=== PATIENT | male | born 1930 | race Caucasian/White ===

== ENCOUNTER 2016-05-06 16:24 | Emergency (ER) | payer MEDICARE ==
[2016-05-06] MEDS ORDERED: NITROGLYCERIN OINT 1 INCH/GM PACKET TOPICAL STA (19:52)
[2016-05-06] MEDS ORDERED: ASPIRIN 81 MG CHEW PO STA (19:52)
[2016-05-06 20:04] LABS: Basophils % (A) 0 %; CH 29.7; CHCM 33.8; Eosinophils # (A) 0.2 k/uL (0-0.7); Eosinophils % (A) 3 %; HCT 45.3 % (39.0-53.0); HDW 2.42; HGB 15.1 gm/dL (13.0-17.5); Luc % (Auto) 2; Lymphocytes # (A) 1.2 k/uL (1.0-4.8); Lymphocytes % (A) 20 %; MCH 29.2 pg (25.0-35.0); MCHC 33.2 g/dL (31.0-37.0); MCV 87.9 fL (80.0-100.0); Mean Platelet Volume 7.1; Monocytes # (A) 0.3 k/uL (0-1.0); Monocytes % (A) 6 %; Neutrophils # (A) 4.2 k/uL (1.3-7.7); Neutrophils % (A) 70 %; RBC 5.16 m/uL (4.30-5.90); RDW 12.8 % (11.5-15.5); WBC (Perox) 6.12
[2016-05-06 20:12] LABS: ALT 29 U/L (21-72); AST 22 U/L (17-59); Alkaline Phosphatase 89 U/L (38-126); Anion Gap 9 mmol/L; Blood Urea Nitrogen 20 mg/dL (9-20); Calcium 8.9 mg/dL (8.4-10.2); Carbon Dioxide 27 mmol/L (22-30); Chloride 106 mmol/L (98-107); Glucose 91 mg/dL (74-99); Magnesium 2.1 mg/dL (1.6-2.3); Non-African American GFR(MDRD) >60 (>60 ml/min/1.73 sqM); Sodium 142 mmol/L (137-145); Total Bilirubin 0.6 mg/dL (0.2-1.3); Total Protein 6.6 g/dL (6.3-8.2)
[2016-05-06 20:17] LABS: Creatine Kinase 35 U/L (55-170)
[2016-05-06 20:20] LABS: Partial Thromboplastin Time 26.3 sec (22.0-30.0); Prothrombin Time 10.4 sec (9.0-12.0)
[2016-05-06 20:30] LABS: Creatine Kinase MB 0.6 ng/mL (0.0-2.4); Troponin I <0.012 ng/mL (0.000-0.034)
--- NOTE | 2016-05-06 20:37 | XR ---
EXAMINATION TYPE: XR chest 2V DATE OF EXAM: 05/06/2016 8:23 PM COMPARISON: NONE HISTORY: Chest pain TECHNIQUE: Frontal and lateral views of the chest are obtained. FINDINGS: There is minimal linear density at the left lung base. There is no heart failure. Heart si ze is normal. There are no hilar masses. There are chest leads. IMPRESSION: Mild pleural reaction or subsegmental atelectasis at the left lung base. Normal heart.
[2016-05-06 21:31] VITALS: RESP 20
--- NOTE | 2016-05-06 21:47 | ED ---
Chest Pain HPI - General Chief Complaint: Chest Pain Stated Complaint: Chest pain Time Seen by Provider: 05/06/16 19:35 Source: patient Mode of arrival: ambulatory Limitations: no limitations - History of Present Illness Initial Comments: This 86-year-old white male presents with a complaint of some chest pain. It is described as a left-sided mild dull ache. He states that it is been intermittent over the last month or so. Usually last 5-10 seconds. He denies any radiation of pain or shortness of breath. He states that it occurred today when he walked up a flight of stairs but it'll also occur at rest. He is unsure of his last stress test but it was remote. He denies any leg pain or swelling or history of DVT or PE. He denies any known previous cardiac history. No other complaints or modifying factors. - Related Data Home Medications Medication Instructions Recorded Confirmed Acetaminophen Tab [Tylenol Tab] 500 mg PO Q6HR PRN 05/06/16 05/06/16 Triamterene-Hctz 75-50Mg [Maxzide 0.5 tab PO DAILY 05/06/16 05/06/16 75-50] Allergies Allergy/AdvReac Type Severity Reaction Status Date / Time No Known Allergies Allergy Verified 05/06/16 18:43 Review of Systems ROS Statement: Those systems with pertinent positive or pertinent negative responses have been documented in the HPI. ROS Other: All systems not noted in ROS Statement are negative. Past Medical History Past Medical History: Cancer, Renal Disease History of Any Multi-Drug Resistant Organisms: None Reported Past Surgical History: Tonsillectomy Additional Past Surgical History / Comment(s): KIDNEY REMOVAL Past Psychological History: No Psychological Hx Reported Smoking Status: Never smoker Past Alcohol Use History: None Reported Past Drug Use History: None Reported General Exam - General Exam Comments Initial Comments: GENERAL: The patient is well nourished and well hydrated. VITAL SIGNS: Heart rate, blood pressure, respiratory rate reviewed as recorded in nurse's notes. EYES: Pupils are round and reactive. Extraocular movements are intact. No conjunctival / lid redness or swelling. ENT: No external evidence of injury, swelling, or ecchymosis. Airway is patent. Throat is clear. NECK: Nontender. No swelling or evidence of injury. No subcutaneous emphysema. Trachea is midline. No thyroid mass. HEART: Regular rate and rhythm. Good peripheral pulses. LUNGS/CHEST: Breath sounds clear and equal bilaterally. No rales, rhonchi, or wheezes. No ecchymosis, subcutaneous emphysema, or tenderness. ABDOMEN: Abdomen soft without tenderness. No palpable masses or organomegaly. No peritoneal signs. No abdominal wall swelling or ecchymosis. EXTREMITIES: No extremity tenderness. Normal muscle tone and function. No thoracolumbar tenderness. NEUROLOGIC: Sensation is grossly intact. Cranial nerve exam reveals face is symmetrical, tongue is midline, speech is clear. SKIN: No abrasions or ecchymosis is noted. No induration or masses noted. PSYCHIATRIC: Alert and oriented. Appropriate behavior and judgment. Limitations: no limitations Course Vital Signs 05/06/16 05/06/16 05/06/16 16:30 19:33 21:31 Temperature 97.9 F 97.1 F L 96.4 F L Pulse Rate 80 52 L 54 L Respiratory 18 20 20 Rate Blood Pressure 156/80 128/69 162/73 O2 Sat by Pulse 96 98 98 Oximetry Chest Pain [facility] The patient was seen and examined. All diagnostics are reviewed. The EKG shows a sinus bradycardia at a rate of 57. There is no acute ST-T wave changes noted. An early right bundle branch block might be present. The [place] interval is 206, QRS duration is 116, and the QTc interval is 426. The chest x-ray showed some possible atelectasis versus pleural inflammation. The laboratory is fairly unremarkable with a negative d-dimer. The patient is in no significant distress on recheck. His chest pain seems very atypical for any cardiac etiology. The case is discussed with Dr. Kennedy and he would like the patient to follow-up with him closely in the next 1-2 days. Patient is agreeable to this plan. Is felt as though she take an aspirin daily. He understands and leaves in no identifiable distress. Disposition Clinical Impression: Chest pain Disposition: HOME SELF-CARE Condition: Good Instructions: Chest Pain (ED) Referrals: Parvez Kennedy MD [Primary Care Provider] - 1-2 days Time of Disposition: 21:58
[2016-05-06 22:11] VITALS: BP 142/72; PULSE 56; TEMP 96.5
== END 2016-05-06 22:08 | disposition home or self-care (01) ==
LOC: EC 16:24
DX: R07.9 Chest pain, unspecified (principal); Z90.5 Acquired absence of kidney; J98.11 Atelectasis; Z79.899 Other long term (current) drug therapy; Z85.9 Personal history of malignant neoplasm, unspecified
CPT/HCPCS: 36415; 71020; 80053; 82550; 82553; 83735; 84484; 85025; 85379; 85610; 85730; 93005; 99285

== ENCOUNTER 2017-06-03 17:51 | Emergency (ER) | payer MEDICARE ==
[2017-06-03 17:57] VITALS: TEMP 98.4
[2017-06-03] MEDS ORDERED: NITROGLYCERIN OINT 1 INCH/GM PACKET TOPICAL STA (18:14)
[2017-06-03] MEDS ORDERED: ASPIRIN 81 MG PO STA (18:14)
--- NOTE | 2017-06-03 18:17 | ED ---
General Adult HPI - General Chief complaint: Chest Pain Stated complaint: Chest pain Time Seen by Provider: 06/03/17 18:00 Source: patient, RN notes reviewed Mode of arrival: wheelchair Limitations: no limitations - History of Present Illness Initial comments: This is an 87-year-old male who presents emergency Department complaining of chest pain. Patient states it started about an hour ago and it was discomfort in the left side of his chest that lasted about 15-20 minutes and it comes back occasionally but for a much shorter duration. Patient states the pain radiates up into his left shoulder a little bit. Patient denies any diaphoresis. Patient denies shortness of breath. Patient denies any nausea. Patient states he has had no history of heart problems no diabetes no high blood pressure no high cholesterol. Patient denies smoking. Patient does not take any medicines but an aspirin a day. Patient denies any headache patient denies numbness weakness. Patient denies lightheadedness dizziness or near-syncopal episode. Patient denies any peripheral edema or calf pain. - Related Data Home Medications Medication Instructions Recorded Confirmed Aspirin 325 mg PO DAILY 05/07/17 06/03/17 Allergies Allergy/AdvReac Type Severity Reaction Status Date / Time No Known Allergies Allergy Verified 06/03/17 19:11 Review of Systems ROS Statement: Those systems with pertinent positive or pertinent negative responses have been documented in the HPI. ROS Other: All systems not noted in ROS Statement are negative. 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 Patient is nontoxic and well- hydrated and is in mild distress. ENT: Neck is soft and supple. No significant lymphadenopathy is noted. Oropharynx is clear. Moist mucous membranes. Neck has full range of motion without eliciting any pain. EYES: The sclera were anicteric and conjunctiva were pink and moist. Extraocular movements were intact and pupils were equal round and reactive to light. Eyelids were unremarkable. PULMONARY: Unlabored respirations. Good breath sounds bilaterally. No audible rales rhonchi or wheezing was noted. CARDIOVASCULAR: There is a regular rate and rhythm without any murmurs gallops or rubs. ABDOMEN: Soft and nontender with normal bowel sounds. No palpable organomegaly was noted. There is no palpable pulsatile mass. SKIN: Skin is clear with no lesions or rashes and otherwise unremarkable. NEUROLOGIC: Patient is alert and oriented x3. Cranial nerves II through XII are grossly intact. Motor and sensory are also intact. Normal speech, volume and content. Symmetrical smile. MUSCULOSKELETAL: Normal extremities with adequate strength and full range of motion. No lower extremity swelling or edema. No calf tenderness. LYMPHATICS: No significant lymphadenopathy is noted PSYCHIATRIC: Normal psychiatric evaluation. Normal interpersonal interactions appears functionally intact in deals appropriately with others. No signs of depression. No signs of anxiety. Limitations: no limitations Course Vital Signs 06/03/17 06/03/17 06/03/17 17:54 18:18 18:41 Temperature 98.4 F Pulse Rate 64 52 L Respiratory 16 18 18 Rate Blood Pressure 142/68 157/71 O2 Sat by Pulse 97 97 Oximetry 06/03/17 19:17 Temperature Pulse Rate 49 L Respiratory 18 Rate Blood Pressure 141/70 O2 Sat by Pulse 97 Oximetry Medical Decision Making - Medical Decision Making EKG shows sinus bradycardia 54 bpm PA interval 208 QRSs 102 QT interval is 444 QTC is 421 per patient's EKG shows no ST segment elevation or T wave abnormalities. Patient's chest x-ray showed no acute abnormality. One pack and spoke with the patient he was not having any chest pain while he was in the emergency department. I spoke with Dr. Brent Kennedy on the patient to follow-up with him on in the office. I went back in and let the patient notices he was fine with being discharged as was the family. - Lab Data Result diagrams: 06/03/17 18:36 06/03/17 18:36 Lab Results 06/03/17 06/03/17 06/03/17 Range/Units 18:36 18:36 18:36 WBC 5.8 (3.8-10.6) k/uL RBC 4.59 (4.30-5.90) m/uL Hgb 13.0 (13.0-17.5) gm/dL Hct 41.0 (39.0-53.0) % MCV 89.2 (80.0-100.0) fL MCH 28.4 (25.0-35.0) pg MCHC 31.8 (31.0-37.0) g/dL RDW 13.4 (11.5-15.5) % Plt Count 124 L (150-450) k/uL Neutrophils % 63 % Lymphocytes % 21 % Monocytes % 6 % Eosinophils % 8 % Basophils % 1 % Neutrophils # 3.7 (1.3-7.7) k/uL Lymphocytes # 1.3 (1.0-4.8) k/uL Monocytes # 0.3 (0-1.0) k/uL Eosinophils # 0.4 (0-0.7) k/uL Basophils # 0.1 (0-0.2) k/uL PT (9.0-12.0) sec INR (<1.2) APTT (22.0-30.0) sec Sodium 142 (137-145) mmol/L Potassium 3.9 (3.5-5.1) mmol/L Chloride 106 (98-107) mmol/L Carbon Dioxide 28 (22-30) mmol/L Anion Gap 8 mmol/L BUN 17 (9-20) mg/dL Creatinine 1.17 (0.66-1.25) mg/dL Est GFR (MDRD) Af Amer >60 (>60 ml/min/1.73 sqM) Est GFR (MDRD) Non-Af 59 (>60 ml/min/1.73 sqM) Glucose 98 (74-99) mg/dL Calcium 9.0 (8.4-10.2) mg/dL Magnesium 1.9 (1.6-2.3) mg/dL Total Bilirubin 0.6 (0.2-1.3) mg/dL AST 24 (17-59) U/L ALT 19 L (21-72) U/L Alkaline Phosphatase 87 (38-126) U/L Total Creatine Kinase <20 L (55-170) U/L CK-MB (CK-2) 0.3 (0.0-2.4) ng/mL CK-MB (CK-2) Rel Index Troponin I <0.012 (0.000-0.034) ng/mL Total Protein 5.9 L (6.3-8.2) g/dL Albumin 3.2 L (3.5-5.0) g/dL 06/03/17 Range/Units 18:36 WBC (3.8-10.6) k/uL RBC (4.30-5.90) m/uL Hgb (13.0-17.5) gm/dL Hct (39.0-53.0) % MCV (80.0-100.0) fL MCH (25.0-35.0) pg MCHC (31.0-37.0) g/dL RDW (11.5-15.5) % Plt Count (150-450) k/uL Neutrophils % % Lymphocytes % % Monocytes % % Eosinophils % % Basophils % % Neutrophils # (1.3-7.7) k/uL Lymphocytes # (1.0-4.8) k/uL Monocytes # (0-1.0) k/uL Eosinophils # (0-0.7) k/uL Basophils # (0-0.2) k/uL PT 10.4 (9.0-12.0) sec INR 1.1 (<1.2) APTT 24.4 (22.0-30.0) sec Sodium (137-145) mmol/L Potassium (3.5-5.1) mmol/L Chloride (98-107) mmol/L Carbon Dioxide (22-30) mmol/L Anion Gap mmol/L BUN (9-20) mg/dL Creatinine (0.66-1.25) mg/dL Est GFR (MDRD) Af Amer (>60 ml/min/1.73 sqM) Est GFR (MDRD) Non-Af (>60 ml/min/1.73 sqM) Glucose (74-99) mg/dL Calcium (8.4-10.2) mg/dL Magnesium (1.6-2.3) mg/dL Total Bilirubin (0.2-1.3) mg/dL AST (17-59) U/L ALT (21-72) U/L Alkaline Phosphatase (38-126) U/L Total Creatine Kinase (55-170) U/L CK-MB (CK-2) (0.0-2.4) ng/mL CK-MB (CK-2) Rel Index Troponin I (0.000-0.034) ng/mL Total Protein (6.3-8.2) g/dL Albumin (3.5-5.0) g/dL Disposition Clinical Impression: Atypical chest pain Disposition: HOME SELF-CARE Condition: Good Instructions: Chest Pain (ED) Referrals: Parvez Kennedy MD [Primary Care Provider] - 1-2 days Time of Disposition: 20:00
[2017-06-03 18:56] LABS: Basophils # (A) 0.1 k/uL (0-0.2); Basophils % (A) 1 %; Eosinophils # (A) 0.4 k/uL (0-0.7); Eosinophils % (A) 8 %; Lymphocytes # (A) 1.3 k/uL (1.0-4.8); Lymphocytes % (A) 21 %; MCH 28.4 pg (25.0-35.0); MCHC 31.8 g/dL (31.0-37.0); MCV 89.2 fL (80.0-100.0); Mean Platelet Volume 7.4; Monocytes # (A) 0.3 k/uL (0-1.0); Monocytes % (A) 6 %; Neutrophils # (A) 3.7 k/uL (1.3-7.7); Neutrophils % (A) 63 %; Platelet Count 124 k/uL (150-450); RBC 4.59 m/uL (4.30-5.90); RDW 13.4 % (11.5-15.5); WBC 5.8 k/uL (3.8-10.6)
[2017-06-03 19:00] LABS: ALT 19 U/L (21-72); AST 24 U/L (17-59); Albumin 3.2 g/dL (3.5-5.0); Alkaline Phosphatase 87 U/L (38-126); Anion Gap 8 mmol/L; Blood Urea Nitrogen 17 mg/dL (9-20); Carbon Dioxide 28 mmol/L (22-30); Chloride 106 mmol/L (98-107); Glucose 98 mg/dL (74-99); INR 1.1 (<1.2); Magnesium 1.9 mg/dL (1.6-2.3); Partial Thromboplastin Time 24.4 sec (22.0-30.0); Potassium 3.9 mmol/L (3.5-5.1); Prothrombin Time 10.4 sec (9.0-12.0); Sodium 142 mmol/L (137-145); Total Bilirubin 0.6 mg/dL (0.2-1.3); Total Protein 5.9 g/dL (6.3-8.2)
[2017-06-03 19:04] LABS: Creatine Kinase <20 U/L (55-170)
--- NOTE | 2017-06-03 19:12 | XR ---
EXAMINATION TYPE: XR chest 2V DATE OF EXAM: 06/03/2017 COMPARISON: Prior chest x-ray 05/07/2017 HISTORY: Chest pain TECHNIQUE: Frontal and lateral views of the chest are obtained. FINDINGS: There is no focal air space opacity, pleural effusion, or pneumothorax seen. The cardiac silhouette size is within normal limits. There are overlying cardiac leads. Prominent lung volumes cervantes ggest COPD. Surgical clips present within the abdomen. The osseous structures are intact. IMPRESSION: No acute cardiopulmonary process.
[2017-06-03 19:17] LABS: Creatine Kinase MB 0.3 ng/mL (0.0-2.4); Troponin I <0.012 ng/mL (0.000-0.034)
[2017-06-03 20:28] VITALS: BP 149/80; PULSE 97; RESP 20
== END 2017-06-03 20:31 | disposition home or self-care (01) ==
LOC: EC 17:51
DX: R07.89 Other chest pain (principal); R00.1 Bradycardia, unspecified; M25.512 Pain in left shoulder; Z79.82 Long term (current) use of aspirin; Z85.528 Personal history of other malignant neoplasm of kidney; Z90.5 Acquired absence of kidney
CPT/HCPCS: 36415; 71046; 80053; 82550; 82553; 83735; 84484; 85025; 85610; 85730; 93005; 99285

== ENCOUNTER 2017-06-05 18:41 | Inpatient (IN) | payer MEDICARE ==
[2017-06-05] MEDS ORDERED: SODIUM CHLORIDE 0.9% 1,000 ML IV ONE ×2 (19:00)
[2017-06-05] MEDS ORDERED: ACETAMINOPHEN IV (For NPO) 1,000 MG in EMPTY BAG 1 BAG IVPB ONE (19:01)
[2017-06-05] MEDS ORDERED: KETOROLAC 30 MG/ML 1 ML VIAL IVP STA (19:01)
[2017-06-05] MEDS ORDERED: cefTRIAXone IN SWFI 1,000 MG/10 ML SYRINGE IVP STA (19:02)
[2017-06-05 19:32] LABS: HCT 42.5 % (39.0-53.0); HGB 14.1 gm/dL (13.0-17.5); MCH 28.6 pg (25.0-35.0); MCHC 33.1 g/dL (31.0-37.0); MCV 86.5 fL (80.0-100.0); Mean Platelet Volume 9.4; Platelet Count 89 k/uL (150-450); Poikilocytosis Slight; RBC 4.91 m/uL (4.30-5.90); RDW 13.8 % (11.5-15.5); WBC 7.4 k/uL (3.8-10.6)
[2017-06-05 19:48] LABS: Band Neutrophils % 2 %; Lymphocytes # (M) 0.07 k/uL (1.0-4.8); Monocytes # (M) 0.07 k/uL (0-1.0); Neutrophils % (M) 96 %; Nucleated Red Blood Cells 0 /100 WBC (0-0); Polychromasia Present; Total Cells Counted 100
[2017-06-05 19:49] LABS: INR 1.2 (<1.2); Prothrombin Time 11.3 sec (9.0-12.0)
[2017-06-05 19:50] LABS: Glucose,Whole Blood 95 mg/dL (75-99)
[2017-06-05 19:51] LABS: Albumin 2.9 g/dL (3.5-5.0); Calcium 8.8 mg/dL (8.4-10.2); Potassium 3.4 mmol/L (3.5-5.1); Total Bilirubin 1.3 mg/dL (0.2-1.3); Total Protein 5.5 g/dL (6.3-8.2)
--- NOTE | 2017-06-05 19:54 | XR ---
EXAMINATION: XR chest 2V DATE AND TIME: 06/05/2017 7:22 PM ORDERING PROVIDER: Andi Vail DO CLINICAL INDICATION: altered mental status TECHNIQUE: PA and lateral COMPARISON: 06/03/2017 DESCRIPTION: The lungs are clear. The pleural spaces are negative. The cardiac silhouette is not enlarged. The skeletal structures are intact without focal findings. The soft tissues are unremarkable. IMPRESSION: NO ACUTE PROCESS.
[2017-06-05 20:06] LABS: Creatine Kinase <20 U/L (55-170)
[2017-06-05 20:18] LABS: Creatine Kinase MB <0.2 ng/mL (0.0-2.4)
--- NOTE | 2017-06-05 20:22 | CT ---
EXAMINATION: CT brain wo con DATE AND TIME: 06/05/2017 7:58 PM ORDERING PROVIDER: Andi Vail DO CLINICAL INDICATION: altered mental status TECHNIQUE: Standard departmental protocol. COMPARISON: None. DESCRIPTION: The calvarium is intact. There is no intracranial hemorrhage. There is no mass or mass e ffect. There is no definite new attenuation defect. Remainder of the intra-axial and extra-axial comp artment examination is unremarkable. The paranasal sinuses, middle ear cavities, and mastoid sinus ai r cells are clear. The orbits are intact. IMPRESSION: NO ACUTE PROCESS.
[2017-06-05] MEDS ORDERED: SODIUM CHLORIDE 0.9% 1,000 ML IV STA (20:39)
--- NOTE | 2017-06-05 22:18 | ED ---
Altered Mental Status HPI - General Chief Complaint: Altered Mental Status Stated Complaint: Altered Mental State Time Seen by Provider: 06/05/17 18:54 Source: EMS Mode of arrival: EMS Limitations: altered mental status - History of Present Illness Initial Comments: This 87-year-old white male presents with mental status changes. This apparently just came on this afternoon. His son states that he was at a doctor' s appointment with Dr. Kennedy and seemed to be doing fine at that time. He gradually became very weak and stopped talking. He does present with a fever as well. He apparently had a similar incident approximately one month ago and was hospitalized at that time with urinary tract infection, fever, and kidney injury. He currently is not able to communicate to relay any complaints. He also was seen in the ER 2 days ago with some chest pain. Son denies any other known complaints or modifying factors. - Related Data Home Medications Medication Instructions Recorded Confirmed Aspirin EC [Ecotrin Low Dose] 81 mg PO DAILY 06/05/17 06/05/17 Allergies Allergy/AdvReac Type Severity Reaction Status Date / Time No Known Allergies Allergy Verified 06/05/17 19:03 Review of Systems ROS Statement: Those systems with pertinent positive or pertinent negative responses have been documented in the HPI. ROS Other: All systems not noted in ROS Statement are negative. 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 VITAL SIGNS: Heart rate, blood pressure, respiratory rate reviewed as recorded in nurse's notes. EYES: Pupils are round and reactive. Extraocular movements are intact. No conjunctival / lid redness or swelling. ENT: No external evidence of injury, swelling, or ecchymosis. Airway is patent. Throat is clear. Mucous membranes are dry. NECK: Nontender. No swelling or evidence of injury. No subcutaneous emphysema. Trachea is midline. No thyroid mass. HEART: Regular rate and rhythm. Good peripheral pulses. LUNGS/CHEST: Breath sounds clear and equal bilaterally. No rales, rhonchi, or wheezes. No ecchymosis, subcutaneous emphysema, or tenderness. ABDOMEN: Abdomen soft without tenderness. No palpable masses or organomegaly. No peritoneal signs. No abdominal wall swelling or ecchymosis. EXTREMITIES: No extremity tenderness. Normal muscle tone and function. No thoracolumbar tenderness. NEUROLOGIC: Patient is nonverbal was initially. He will follow occasional commands. Later on in course, he is able to talk and appears much improved. SKIN: No abrasions or ecchymosis is noted. No induration or masses noted. PSYCHIATRIC: Alert but not oriented or talking initially. Limitations: altered mental status Course Vital Signs 06/05/17 06/05/17 06/05/17 18:48 19:20 19:50 Temperature 103.2 F H 102.8 F H Pulse Rate 122 H 120 H 116 H Respiratory 16 18 18 Rate Blood Pressure 155/78 149/73 119/63 O2 Sat by Pulse 96 97 Oximetry 06/05/17 06/05/17 20:21 21:40 Temperature 101.7 F H 98 F Pulse Rate 111 H 107 H Respiratory 18 16 Rate Blood Pressure 115/56 123/61 O2 Sat by Pulse 96 97 Oximetry Medical Decision Making - Medical Decision Making The patient was seen and examined. All diagnostics were reviewed. A EKG was done which shows a sinus tachycardia at a rate of 124 with occasional PVC. There is a right bundle-branch block with associated ST-T wave changes noted. The OR intervals 168, QRS duration is 114, and the QTc interval is 525. The patient had a chest x-ray which did not show any acute processes. The laboratory showed evidence of acute kidney injury which is significantly change from previous. The nurse did try to straight cath the patient for urine but was unable to obtain any urine at this time. He received significant fluid hydration. He received Rocephin intravenously. He is appearing much improved on recheck. The case will be discussed with internal medicine in the near future and he'll be admitted. He also receives some Tylenol and Toradol for his fever. It is felt as though he likely does have urinary tract infection but we are unable to obtain urine at this time. - Lab Data Result diagrams: 06/05/17 18:18 06/05/17 19:26 Lab Results 06/05/17 06/05/17 06/05/17 Range/Units 18:18 18:18 19:26 WBC 7.4 (3.8-10.6) k/uL RBC 4.91 (4.30-5.90) m/uL Hgb 14.1 (13.0-17.5) gm/dL Hct 42.5 (39.0-53.0) % MCV 86.5 (80.0-100.0) fL MCH 28.6 (25.0-35.0) pg MCHC 33.1 (31.0-37.0) g/dL RDW 13.8 (11.5-15.5) % Plt Count 89 L (150-450) k/uL Neutrophils % (Manual) 96 % Band Neutrophils % 2 % Lymphocytes % (Manual) 1 % Monocytes % (Manual) 1 % Neutrophils # (Manual) 7.20 (1.3-7.7) k/uL Lymphocytes # (Manual) 0.07 L (1.0-4.8) k/uL Monocytes # (Manual) 0.07 (0-1.0) k/uL Nucleated RBCs 0 (0-0) /100 WBC Polychromasia Present Poikilocytosis Slight PT 11.3 (9.0-12.0) sec INR 1.2 H (<1.2) APTT 24.0 (22.0-30.0) sec Sodium (137-145) mmol/L Potassium (3.5-5.1) mmol/L Chloride (98-107) mmol/L Carbon Dioxide (22-30) mmol/L Anion Gap mmol/L BUN (9-20) mg/dL Creatinine (0.66-1.25) mg/dL Est GFR (MDRD) Af Amer (>60 ml/min/1.73 sqM) Est GFR (MDRD) Non-Af (>60 ml/min/1.73 sqM) Glucose (74-99) mg/dL POC Glucose (mg/dL) (75-99) mg/dL POC Glu Milk [employer] Truck ID Plasma Lactic Acid Hari 2.0 (0.7-2.0) mmol/L Calcium (8.4-10.2) mg/dL Total Bilirubin (0.2-1.3) mg/dL AST (17-59) U/L ALT (21-72) U/L Alkaline Phosphatase (38-126) U/L Ammonia 15 (<30) umol/L Total Creatine Kinase (55-170) U/L CK-MB (CK-2) (0.0-2.4) ng/mL CK-MB (CK-2) Rel Index Troponin I (0.000-0.034) ng/mL Total Protein (6.3-8.2) g/dL Albumin (3.5-5.0) g/dL 06/05/17 06/05/17 06/05/17 Range/Units 19:26 19:26 19:43 WBC (3.8-10.6) k/uL RBC (4.30-5.90) m/uL Hgb (13.0-17.5) gm/dL Hct (39.0-53.0) % MCV (80.0-100.0) fL MCH (25.0-35.0) pg MCHC (31.0-37.0) g/dL RDW (11.5-15.5) % Plt Count (150-450) k/uL Neutrophils % (Manual) % Band Neutrophils % % Lymphocytes % (Manual) % Monocytes % (Manual) % Neutrophils # (Manual) (1.3-7.7) k/uL Lymphocytes # (Manual) (1.0-4.8) k/uL Monocytes # (Manual) (0-1.0) k/uL Nucleated RBCs (0-0) /100 WBC Polychromasia Poikilocytosis PT (9.0-12.0) sec INR (<1.2) APTT (22.0-30.0) sec Sodium 141 (137-145) mmol/L Potassium 3.4 L (3.5-5.1) mmol/L Chloride 107 (98-107) mmol/L Carbon Dioxide 22 (22-30) mmol/L Anion Gap 12 mmol/L BUN 24 H (9-20) mg/dL Creatinine 3.52 H (0.66-1.25) mg/dL Est GFR (MDRD) Af Amer 20 (>60 ml/min/1.73 sqM) Est GFR (MDRD) Non-Af 17 (>60 ml/min/1.73 sqM) Glucose 100 H (74-99) mg/dL POC Glucose (mg/dL) 95 (75-99) mg/dL POC Glu [employer] ID Andi Dooley Plasma Lactic Acid Hari (0.7-2.0) mmol/L Calcium 8.8 (8.4-10.2) mg/dL Total Bilirubin 1.3 (0.2-1.3) mg/dL AST 21 (17-59) U/L ALT 22 (21-72) U/L Alkaline Phosphatase 80 (38-126) U/L Ammonia (<30) umol/L Total Creatine Kinase <20 L (55-170) U/L CK-MB (CK-2) <0.2 (0.0-2.4) ng/mL CK-MB (CK-2) Rel Index Troponin I 0.030 (0.000-0.034) ng/mL Total Protein 5.5 L (6.3-8.2) g/dL Albumin 2.9 L (3.5-5.0) g/dL Disposition Clinical Impression: Fever, Mental status change, Dehydration, ASHLEY (acute kidney injury), Sinus tachycardia Disposition: ADMITTED IP TO THIS [facility] Condition: Fair Time of Disposition: 22:18 Decision Date: 06/05/17 Decision Time: 22:18
[2017-06-06] MEDS: AMPICILLIN-SULBACTAM 1.5 GM in SODIUM CHLORIDE 0.9% 50 ML IVPB SCH ×3 (00:10→16:59)
[2017-06-06 08:57] LABS: Calcium 7.8 mg/dL (8.4-10.2); Potassium 4.3 mmol/L (3.5-5.1)
[2017-06-06 16:21] LABS: RBC,Urine >182 /hpf (0-5); WBC,Urine >182 /hpf (0-5)
[2017-06-06 16:24] LABS: Appearance,Urine Cloudy (Clear); Color,Urine Light Red
[2017-06-06 16:32] LABS: Amphetamine Screen,Urine Not Detected (NotDetected); Barbiturate Screen,Urine Not Detected (NotDetected); Benzodiazepines Screen,Urine Not Detected (NotDetected); Cocaine Screen,Urine Not Detected (NotDetected); Methadone Screen, Urine Not Detected (NotDetected); Opiate Screen,Urine Not Detected (NotDetected); Oxycodone Screen, Urine Not Detected (NotDetected); Phencyclidine Screen,Urine Not Detected (NotDetected); Tricyclic Antidepressant,Urine Not Detected (NotDetected); Urn Cannabinoid Scrn Not Detected (NotDetected)
--- NOTE | 2017-06-06 16:50 | US ---
EXAMINATION TYPE: US kidneys/renal and bladder DATE OF EXAM: 06/06/2017 COMPARISON: NONE CLINICAL HISTORY: uti. EXAM MEASUREMENTS: Right Kidney: 11.6 x 6.8 x 5.0 cm Left Kidney: Surgically absent Technically difficult study due to patient inability to cooperate. Right Kidney: at least two calculus seen, largest measuring 1.1 x 1.1 x 0.9cm Left Kidney: Surgically absent Bladder: not visualized, not distended Bilateral Jets seen: No Cortical medullary differentiation is maintained. IMPRESSION: Nephrolithiasis. Exam is somewhat limited. Left kidney is not seen.
--- NOTE | 2017-06-06 22:54 | HP ---
HISTORY AND PHYSICAL DATE OF ADMISSION: 06/05/2017 CHIEF COMPLAINT: Confusion. HISTORY OF PRESENT ILLNESS: This 87-year-old gentleman was brought into the emergency room. The patient has some confusion. The patient also was noted to have a temperature of 102.8. The patient had a heart rate of 116 with that. The patient was seen earlier in the day for a routine followup after a recent emergency room visit for chest pain. The patient was doing well. His vitals were stable; no fever. We discussed with the patient and his son regarding placement into [facility]. The patient had no other symptoms. This evening the patient presents to the emergency room with the above symptoms. The patient is noted to have evidence suggestive of sepsis. He is admitted to the hospital. After initial IV fluids and temperature coming down, the patient's vitals remained stable. He is admitted to the hospital. He had no urine output when he was seen in the emergency room. His renal function has markedly worsened. He only has one kidney; he has had a previous nephrectomy for renal cell carcinoma. The patient at the time of my evaluation this morning is as alert as his usual status. The patient had voided some. Otherwise, he denied any symptoms of any fever or pain in the back. PAST MEDICAL HISTORY: Recent hospitalization for bacteremia and urinary tract infection. The patient subsequent to that had been transferred to a nursing facility for rehab and discharged from the nursing facility in a good status. The patient knows his son is making arrangements for the patient to move into assisted-living status. Past medical history significant for renal cell carcinoma, for which he has had a nephrectomy. He also has a history of nephrolithiasis. No history of any lung disease, liver disease, thyroid condition, ulcers, TB, hepatitis. No history of any rheumatic fever, myocardial infarction or CVA. PAST SURGICAL HISTORY: Significant for tonsillectomy, circumcision, vasectomy. He had a colonoscopy back in 2001 that was unremarkable. PERSONAL HISTORY: Alcohol: About one drink every other day. Nonsmoker. ALLERGIES: NONE KNOWN. MEDICATIONS: An aspirin a day. VACCINATION: Pneumonia vaccine back on 01/17/2015 and annual flu shot. SOCIAL HISTORY: Patient is and single. Lives in a home with his brother. The brother at present is in [place]. FAMILY MEDICAL HISTORY: Father at the age of 72 with carcinoma of the lung. He also had coronary artery disease. Mother at the age of 91. She had a history of Parkinson's and ASHD. A brother, 86 years of age, with history of coronary artery disease. A sister who in her 50s had carcinoma of the breast. The patient has one daughter and 3 sons in adequate health. REVIEW OF SYSTEMS: NEURO: Denies any headaches, dizziness. PSYCH: Cooperative, in no distress. CARDIAC: No chest pain, angina, palpitations. RESPIRATORY: Denies shortness of breath, cough, hemoptysis. GI: No nausea, vomiting, abdominal pain, diarrhea. : Denies symptoms of dysuria, hematuria. EXTREMITIES: Denies pain, edema. CONSTITUTIONAL: Fever. No chills. SKIN: No rash. PHYSICAL EXAMINATION: Elderly gentleman, at present in no distress. Vital signs revealed temperature 98.5, pulse 80, respirations 18, blood pressure 107/56, pulse ox 97% on 2 L. HEENT: Normocephalic. NECK: Supple with decreased range of motion. No JVD. No carotid bruits. No thyromegaly. Pupils are reactive. Nostrils are clear. Oral cavity is moist. CHEST: Clear to auscultation and percussion. CARDIAC: Normal S1, S2 with no gallops, murmurs, rubs appreciated. ABDOMEN: Soft. No palpable masses. Bowel sounds normal. No organomegaly. No abdominal bruits. No CVA tenderness. Extremities revealed no edema. Good pulses, both upper lower extremities. Neurologically awake, alert, oriented. Well-coordinated movements. LABORATORY ASSESSMENT: CBC was normal except for platelet count of 89,000. PT, PTT were normal. Potassium was 3.4, chloride 107, CO2 content 22, anion gap 12, BUN 24, creatinine 3.52, glucose 100. Hepatic function normal. CPK and troponin negative. Urine had 182 WBCs and 182 RBCs. ASSESSMENT: 1. Urinary tract infection with sepsis. 2. Acute renal failure. 3. History of nephrectomy. 4. History of nephrolithiasis. PLAN: Continue present medical regimen. The patient is on Unasyn. We will continue that. The patient had been admitted to the hospital on 05/12 with bacteremia with micrococcus. We will monitor the patient closely. Patient may require long-term antibiotic. Prognosis remains guarded. Will repeat renal status. MMODL / IJN: [id number] /
[2017-06-07] MEDS: AMPICILLIN-SULBACTAM 1.5 GM in SODIUM CHLORIDE 0.9% 50 ML IVPB SCH ×2 (00:15→07:44)
[2017-06-07 07:30] LABS: Potassium 4.2 mmol/L (3.5-5.1)
--- NOTE | 2017-06-07 11:56 | P.NPCON ---
History of Present Illness - Reason for Consult acute renal failure - History of Present Illness Reason for consultation: Acute kidney injury History of present illness: Patient is a 87-year-old male seen in renal consultation for acute kidney injury. His baseline creatinine is 1 and was elevated at 3.5 on admission on June 05. Today his creatinine is up to 6.35. Patient presented to the hospital due to generalized weakness and some confusion according to the family. He was also noted to have a fever of 102.8F. Patient was noted to have a UTI last month is urine culture positive for enterococcus. At that time his blood culture was also positive for micrococcus. He was taking antibiotics. This admission his blood cultures are positive for group D enterococcus. He is currently maintained on IV Unasyn. He denies any vomiting or diarrhea. Denies use of NSAIDs. Denies any family history of renal disease. He has been voiding. Denies any hematuria or dysuria. He has history of renal cell carcinoma status post left nephrectomy several years ago. Right kidney is normal in size with nephrolithiasis noted. Vital signs are stable. General: The patient appeared well nourished and normally developed. HEENT: Head exam is unremarkable. Neck is without jugular venous distension. LUNGS: Lungs are clear to auscultation and percussion. Breath sounds decreased. HEART: Rate and Rhythm are regular. First and second heart sounds normal. No murmurs, rubs or gallops. ABDOMEN: Abdominal exam reveals normal bowel sounds. Non-tender and non- distended. No evidence of peritonitis. EXTREMITITES: No clubbing, cyanosis, or edema. Past Medical History Past Medical History: Cancer, Hypertension, Renal Disease Additional Past Medical History / Comment(s): kidney cancer only has 1 kidney mild memory impairment History of Any Multi-Drug Resistant Organisms: None Reported Past Surgical History: Tonsillectomy Additional Past Surgical History / Comment(s): KIDNEY REMOVAL Past Anesthesia/Blood Transfusion Reactions: No Reported Reaction Past Psychological History: No Psychological Hx Reported Smoking Status: Never smoker Past Alcohol Use History: None Reported Past Drug Use History: None Reported - Past Family History Father Family Medical History: Cancer Medications and Allergies Home Medications Medication Instructions Recorded Confirmed Type Aspirin EC [Ecotrin Low Dose] 81 mg PO DAILY 06/05/17 06/05/17 History Allergies Allergy/AdvReac Type Severity Reaction Status Date / Time No Known Allergies Allergy Verified 06/05/17 19:03 Physical Exam Vitals: Vital Signs Temp Pulse Resp BP Pulse Ox 06/07/17 08:00 87 18 06/07/17 07:00 98.2 F 87 18 148/71 96 06/06/17 21:50 98.7 F 90 16 126/68 98 06/06/17 15:00 98.5 F 82 16 131/60 97 Intake and Output 06/06/17 06/07/17 06/07/17 22:59 06:59 14:59 Intake Total 300 50 Balance 300 50 Intake: IV 300 50 Ampicillin-Sulbactam 1.5 50 gm In Sodium Chloride 0.9 % 50 ml @ 100 mls/hr IVPB Q8H [facility] Rx#:[id number] Sodium Chloride 0.9% 1, 300 000 ml @ 100 mls/hr IV . Q10H [facility] Rx#:[id number] Other: Voiding Method Urinal Urinal Urinal Results - Lab Results Most recent lab results Calcium 8.0 mg/dL (8.4-10.2) L 06/07/17 06:37 06/05/17 18:18 06/07/17 06:37 Assessment and Plan Plan: Assessment: #1. Acute kidney injury secondary to ATN secondary to sepsis. Creatinine up to 6.35 today. Baseline creatinine is near 1. Rule out urinary retention. Interstitial nephritis also in the differential diagnosis as he's been on antibiotics recently. No evidence of hydronephrosis noted on renal ultrasound. #2. 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 #3. Metabolic acidosis secondary to acute kidney injury. #4. Nephrolithiasis. #5. Bacteremia with blood culture positive for group B enterococcus. Plan: Resume normal saline to be run at 100 mL an hour. Add oral sodium bicarbonate 650 mg twice daily. Follow-up cultures. Continue with IV antibiotics. Check urine eosinophils. Check postvoid residuals to make sure no underlying urinary retention. Continue to monitor renal function and urine output closely. Repeat electrolytes in the morning. Thank you for the consultation. I will continue to follow the patient with you during his hospital stay.
[2017-06-07] MEDS: SODIUM BICARBONATE TAB 650 MG TAB PO SCH ×2 (12:23→19:58)
[2017-06-07] MEDS: SODIUM CHLORIDE 0.9% 1,000 ML IV SCH (12:25)
[2017-06-07 16:04] LABS: Bacteria,Urine Rare /hpf; RBC,Urine >182 /hpf (0-5); WBC,Urine >182 /hpf (0-5)
[2017-06-07 16:20] LABS: Appearance,Urine Bloody (Clear); Color,Urine Red
--- NOTE | 2017-06-07 23:43 | PN ---
PROGRESS NOTE ATTENDING PHYSICIAN: Dr. Fortino Kennedy. CHIEF COMPLAINT: Re-evaluation. HISTORY OF PRESENT ILLNESS: This 87-year-old gentleman was admitted to the hospital with evidence of urinary tract infection and sepsis and bacteremia. The patient has developed acute renal failure. He has had a previous nephrectomy for CA. The patient otherwise has no other major medical illnesses. He is more alert and back to his usual medications. REVIEW OF SYSTEMS: NEURO: Denies any headaches, dizziness. Psych: No anxiety. Cooperative. Cardiac: No chest pain, angina or palpitations. Respiratory: Denies shortness of breath, cough. GI no nausea, vomiting, abdominal pain, diarrhea. he is urinating. EXTREMITIES: No pain, edema. Constitutional no fever or chills. PHYSICAL EXAMINATION: Pleasant gentleman in no distress. Vital signs reveal temperature 98.2, pulse 87, respirations 18, blood pressure 148/71, pulse ox 96% on room air. HEENT: Normocephalic. Neck no JVD. CHEST: Clear to auscultation. Cardiac normal S1, S2 with no gallops. HEENT: Normocephalic. NECK: Supple. No JVD. CHEST: Clear to auscultation and percussion. Cardiac normal S1, S2 with no gallops, murmurs, or rubs. ABDOMEN: Soft with no peripheral masses. Bowel sounds normal. No organomegaly. No abdominal bruits. Extremities reveal no edema. Good pulses both upper and lower extremities. NEUROLOGIC: Awake, alert, oriented with well-coordinated movements. LABORATORY ASSESSMENT: Electrolytes reveal sodium 140, potassium 4.2, chloride 111, anion gap 11, BUN 46, creatinine 6.35. ASSESSMENT: 1. Acute renal failure. 2. History of nephrectomy. 3. History of nephrolithiasis. 4. Urinary tract infection with bacteremia and sepsis. PLAN: Continue present medical regimen. Patient's general condition stable. The patient is seen by Nephrology. Patient will be continued with IV hydration. Follow the patient's electrolytes, BUN, creatinine. MMODL / IJN: [id number] /
[2017-06-08] MEDS: SODIUM CHLORIDE 0.9% 1,000 ML IV SCH ×2 (00:34→12:18)
[2017-06-08 07:43] LABS: Basophils % (A) 0 %; Eosinophils # (A) 0.3 k/uL (0-0.7); Eosinophils % (A) 2 %; HCT 43.5 % (39.0-53.0); HGB 13.6 gm/dL (13.0-17.5); Lymphocytes # (A) 0.6 k/uL (1.0-4.8); Lymphocytes % (A) 4 %; MCH 27.9 pg (25.0-35.0); MCHC 31.2 g/dL (31.0-37.0); MCV 89.2 fL (80.0-100.0); Mean Platelet Volume 8.3; Monocytes # (A) 0.4 k/uL (0-1.0); Monocytes % (A) 3 %; Neutrophils # (A) 13.6 k/uL (1.3-7.7); Neutrophils % (A) 91 %; RBC 4.88 m/uL (4.30-5.90); RDW 13.6 % (11.5-15.5)
[2017-06-08] MEDS ORDERED: AMPICILLIN-SULBACTAM 1.5 GM in SODIUM CHLORIDE 0.9% 50 ML IVPB SCH (08:00)
[2017-06-08 08:03] LABS: Calcium 8.3 mg/dL (8.4-10.2); Potassium 4.3 mmol/L (3.5-5.1)
[2017-06-08 08:48] LABS: Platelet Count 77 k/uL (150-450)
[2017-06-08] MEDS: SODIUM BICARBONATE TAB 650 MG TAB PO SCH ×2 (10:03→21:58)
--- NOTE | 2017-06-08 10:15 | P.PN ---
Subjective Progress Note Date: 06/08/17 Principal diagnosis: Sepsis 87-year-old gentleman admitted to the hospital with a fever, bacteremia with enterococcus and acute renal failure. Patient has no history of previous renal cell carcinoma with nephrectomy. He has one kidney. He also has nephrolithiasis. Patient's renal failure is now progressing to oliguria. Nephrology is reviewing and following the patient in a Huff catheter placed today which revealed blood , urology has been consulted. Patient's status is discussed with son and reviewed condition. Potential dialysis reviewed. Prognosis remains guarded. Patient remains alert. Appetite is down and has weakness no other symptoms of nausea vomiting did have a bowel movement minimal urine output of 87 mL in the last 12 hours REVIEW OF SYSTEMS: Neuro: Denies any headaches dizziness. Psych: Denies anxiety depression feels oriented. Cardiac: Denies chest pain and angina palpitations. Respiratory: Denies shortness of breath cough. GI:Denies nausea vomiting or abdominal pain. No diarrhea or constipation, : Denies dysuria has hematuria. Extremities: Denies pain. No edema. Skin: Intact. Constitutional: No fever, chills. Objective - Vital Signs Vital signs: Vital Signs Temp 97.2 F L 06/08/17 07:00 Pulse 79 06/08/17 07:01 Resp 16 06/08/17 07:01 BP 159/77 06/08/17 07:00 Pulse Ox 98 06/08/17 07:00 Intake & Output 06/07/17 06/08/17 06/08/17 18:59 06:59 18:59 Intake Total 60 1100 Output Total 30 90 0 Balance 30 1010 0 Intake: Intake, IV Titration 1100 Amount Sodium Chloride 0.9% 1, 1100 000 ml @ 100 mls/hr IV . Q10H [facility] Rx#:[id number] Oral 60 Output: Urine 30 90 0 Uretheral (Huff) 90 0 Other: Voiding Method Urinal Indwelling Catheter Indwelling Catheter PHYSICAL EXAMINATION: Cooperative, at present in no acute distress. HEENT: Neck supple. No JVD. Chest: Clear to auscultation percussion. Cardiac: Normal S1-S2 no gallops no murmur nor rub. Abdomen: Soft bowel sounds present. Extremities: Trace edema no tenderness Neurologically: Awake, alert, oriented with well-coordinated movements. - Labs CBC & Chem 7: 06/08/17 06:57 06/08/17 06:57 Labs: Abnormal Lab Results - Last 24 Hours (Table) 06/07/17 06/08/17 06/08/17 Range/Units 15:45 06:57 06:57 WBC 15.0 H (3.8-10.6) k/uL Plt Count 77 L (150-450) k/uL Neutrophils # 13.6 H (1.3-7.7) k/uL Lymphocytes # 0.6 L (1.0-4.8) k/uL Chloride 111 H (98-107) mmol/L Carbon Dioxide 15 L (22-30) mmol/L BUN 55 H (9-20) mg/dL Creatinine 7.81 H* (0.66-1.25) mg/dL Calcium 8.3 L (8.4-10.2) mg/dL Urine RBC >182 H (0-5) /hpf Urine WBC >182 H (0-5) /hpf Urine WBC Clumps Many H (None) /hpf Urine Bacteria Rare H (None) /hpf Microbiology - Last 24 Hours (Table) 06/05/17 15:35 Urine Culture - Final Urine,Catheterized 06/05/17 18:18 Blood Culture Gram Stain - Final Blood Blood Culture - Final Enterococcus faecalis Assessment and Plan Assessment: ASSESSMENT: 1. Acute renal failure. 2. Metabolic acidosis. 3. History of nephrectomy. 4. History of renal cell carcinoma in remission. 5. Nephrolithiasis. 6. Thrombocytopenia. 7. Enterococcus bacteremia PLAN: Continue present medical regimen. Asians condition discussed with the son in detail await evaluation by nephrology. Prognosis remains guarded antibiotics be continued for enterococcus bacteremia.
--- NOTE | 2017-06-08 11:25 | P.GSCN ---
History of Present Illness Consult date: 06/08/17 History of present illness: The patient is an 87-year-old gentleman known to me. I am and seen him for many years. He had a left radical nephrectomy years ago for renal cell carcinoma. He has remained in remission ever since. He also has a history kidney stones but they have been asymptomatic and not needed to have treatment. Patient apparently has had a couple of urine infections and recently was admitted to the hospital by Dr. Kennedy for urinary tract infection with sepsis and acute renal failure due to this enterococcus. The patient is relatively asymptomatic. He denies any flank pain. His creatinine has climbed to 7. He has had some bloody urine after catheters placed however he denied gross hematuria prior to the catheter. The patient had a renal ultrasound identifying stones in his right kidney without hydronephrosis. The left kidney is surgically absent. He is not have any problems urinating. He is not having any flank or right-sided abdominal pain suggestive of a stone passage. His urine is distinctly inflamed with greater than 182 white cells greater than 182 red cells. Review of Systems - Constitutional Reports chills, Reports lethargy - Genitourinary Reports as per HPI Past Medical History Past Medical History: Cancer, Hypertension, Renal Disease Additional Past Medical History / Comment(s): kidney cancer only has 1 kidney mild memory impairment History of Any Multi-Drug Resistant Organisms: None Reported Past Surgical History: Tonsillectomy Additional Past Surgical History / Comment(s): KIDNEY REMOVAL Past Anesthesia/Blood Transfusion Reactions: No Reported Reaction Past Psychological History: No Psychological Hx Reported Smoking Status: Never smoker Past Alcohol Use History: None Reported Past Drug Use History: None Reported - Past Family History Father Family Medical History: Cancer Medications and Allergies Home Medications Medication Instructions Recorded Confirmed Type Aspirin EC [Ecotrin Low Dose] 81 mg PO DAILY 06/05/17 06/05/17 History Allergies Allergy/AdvReac Type Severity Reaction Status Date / Time No Known Allergies Allergy Verified 06/05/17 19:03 Surgical - Exam Vital Signs Temp Pulse Resp BP Pulse Ox 103.2 F H 122 H 16 155/78 96 06/05/17 18:48 06/05/17 18:48 06/05/17 18:48 06/05/17 18:48 06/05/17 18:48 - General well developed, well nourished, no distress - Eyes PERRL - ENT no hearing loss - Neck trachea midline - Respiratory normal expansion, normal respiratory effort - Cardiovascular Rhythm: regular - Abdomen Abdomen: soft, non tender - Genitourinary normal penis with no external lesions, testicles present - Integumentary no rash, no growths - Neurologic normal coordination, normal sensation - Musculoskeletal normal posture Results - Labs 06/08/17 06:57 06/08/17 06:57 Abnormal Lab Results - Last 24 Hours (Table) 06/07/17 06/08/17 06/08/17 Range/Units 15:45 06:57 06:57 WBC 15.0 H (3.8-10.6) k/uL Plt Count 77 L (150-450) k/uL Neutrophils # 13.6 H (1.3-7.7) k/uL Lymphocytes # 0.6 L (1.0-4.8) k/uL Chloride 111 H (98-107) mmol/L Carbon Dioxide 15 L (22-30) mmol/L BUN 55 H (9-20) mg/dL Creatinine 7.81 H* (0.66-1.25) mg/dL Calcium 8.3 L (8.4-10.2) mg/dL Urine RBC >182 H (0-5) /hpf Urine WBC >182 H (0-5) /hpf Urine WBC Clumps Many H (None) /hpf Urine Bacteria Rare H (None) /hpf Microbiology - Last 24 Hours (Table) 06/05/17 15:35 Urine Culture - Final Urine,Catheterized 06/05/17 18:18 Blood Culture Gram Stain - Final Blood Blood Culture - Final Enterococcus faecalis Diabetes panel 06/08/17 Range/Units 06:57 Sodium 141 (137-145) mmol/L Potassium 4.3 (3.5-5.1) mmol/L Chloride 111 H (98-107) mmol/L Carbon Dioxide 15 L (22-30) mmol/L BUN 55 H (9-20) mg/dL Creatinine 7.81 H* (0.66-1.25) mg/dL Glucose 90 (74-99) mg/dL Calcium 8.3 L (8.4-10.2) mg/dL Calcium panel 06/08/17 Range/Units 06:57 Calcium 8.3 L (8.4-10.2) mg/dL Pituitary panel 06/08/17 Range/Units 06:57 Sodium 141 (137-145) mmol/L Potassium 4.3 (3.5-5.1) mmol/L Chloride 111 H (98-107) mmol/L Carbon Dioxide 15 L (22-30) mmol/L BUN 55 H (9-20) mg/dL Creatinine 7.81 H* (0.66-1.25) mg/dL Glucose 90 (74-99) mg/dL Calcium 8.3 L (8.4-10.2) mg/dL Adrenal panel 06/08/17 Range/Units 06:57 Sodium 141 (137-145) mmol/L Potassium 4.3 (3.5-5.1) mmol/L Chloride 111 H (98-107) mmol/L Carbon Dioxide 15 L (22-30) mmol/L BUN 55 H (9-20) mg/dL Creatinine 7.81 H* (0.66-1.25) mg/dL Glucose 90 (74-99) mg/dL Calcium 8.3 L (8.4-10.2) mg/dL - Imaging US - abdomen: report reviewed, image reviewed Assessment and Plan Assessment: Impression: Urinary tract infection with sepsis. Gross hematuria possible hemorrhagic cystitis versus catheter-induced trauma. History of left nephrectomy for kidney cancer. Right renal calculi. Acute and worsening renal failure. No Evidence of obstruction on renal ultrasound. Recommendations: I will order a computed tomography scan of the abdomen and pelvis without contrast to make certain there are no stones in the ureter causing a subclinical obstruction that may not be evident due to decreased fluid intake. I will have the nursing staff irrigate and changed catheter is needed. Pending the results of the computed tomography scan is further recommendation from a urologic standpoint with respect to the above-noted urinary tract disease.
--- NOTE | 2017-06-08 11:51 | P.PN ---
Subjective Patient is seen in follow-up for acute kidney injury. His baseline creatinine is 1 and renal function has been progressively worsening over the last few days. Creatinine is up to 7.81 today. Over the last 6 weeks or so he's had recurrent bouts of infection with UTI and bacteremia. His current blood cultures are positive for enterococcus facialis. He is maintained on IV Unasyn. He is oliguric. Son is present at bedside. Patient is awake and alert. Denies chest pain or shortness of breath. Oral intake is fair. Vital signs are stable. General: The patient appeared well nourished and normally developed. HEENT: Head exam is unremarkable. Neck is without jugular venous distension. LUNGS: Lungs are clear to auscultation and percussion. Breath sounds decreased. HEART: Rate and Rhythm are regular. First and second heart sounds normal. No murmurs, rubs or gallops. ABDOMEN: Abdominal exam reveals normal bowel sounds. Non-tender and non- distended. No evidence of peritonitis. EXTREMITITES: No clubbing, cyanosis, or edema. Objective - Vital Signs Vital signs: Vital Signs Temp 97.2 F L 06/08/17 07:00 Pulse 79 06/08/17 07:01 Resp 16 06/08/17 07:01 BP 159/77 06/08/17 07:00 Pulse Ox 98 06/08/17 07:00 Intake & Output 06/07/17 06/08/17 06/08/17 18:59 06:59 18:59 Intake Total 60 1100 Output Total 30 90 0 Balance 30 1010 0 Intake: Intake, IV Titration 1100 Amount Sodium Chloride 0.9% 1, 1100 000 ml @ 100 mls/hr IV . Q10H [facility] Rx#:[id number] Oral 60 Output: Urine 30 90 0 Uretheral (Huff) 90 0 Other: Voiding Method Urinal Indwelling Catheter Indwelling Catheter - Labs CBC & Chem 7: 06/08/17 06:57 06/08/17 06:57 Labs: Abnormal Lab Results - Last 24 Hours (Table) 06/07/17 06/08/17 06/08/17 Range/Units 15:45 06:57 06:57 WBC 15.0 H (3.8-10.6) k/uL Plt Count 77 L (150-450) k/uL Neutrophils # 13.6 H (1.3-7.7) k/uL Lymphocytes # 0.6 L (1.0-4.8) k/uL Chloride 111 H (98-107) mmol/L Carbon Dioxide 15 L (22-30) mmol/L BUN 55 H (9-20) mg/dL Creatinine 7.81 H* (0.66-1.25) mg/dL Calcium 8.3 L (8.4-10.2) mg/dL Urine RBC >182 H (0-5) /hpf Urine WBC >182 H (0-5) /hpf Urine WBC Clumps Many H (None) /hpf Urine Bacteria Rare H (None) /hpf Microbiology - Last 24 Hours (Table) 06/05/17 15:35 Urine Culture - Final Urine,Catheterized 06/05/17 18:18 Blood Culture Gram Stain - Final Blood Blood Culture - Final Enterococcus faecalis Assessment and Plan Plan: Assessment: #1. Acute kidney injury secondary to ATN secondary to sepsis. 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 His urine eosinophils are positive at 10%. Creatinine up to 7.8 today. Baseline creatinine is near 1. No evidence of hydronephrosis noted on renal ultrasound. Also rule out GN as he does have proteinuria on UA. #2. 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 #3. Metabolic acidosis secondary to acute kidney injury. #4. Nephrolithiasis. #5. Bacteremia with blood culture positive for group B enterococcus. Plan: Discontinue normal saline. Start isotonic sodium bicarbonate drip to be run at 100 mL an hour. Continue with IV antibiotics - will use an alternate to Unasyn. Check serologies. Start prednisone 60 mg once daily today. Urology following. Follow-up CAT scan results. Avoid nephrotoxic agents and hypotensive episodes. Continue to monitor renal function and urine output closely. I discussed with the patient and his son present at bedside regarding the potential need for renal replacement therapy in the next few days if no improvement in his renal function and urine output. They are in agreement to proceed if needed.
[2017-06-08] MEDS: predniSONE 20 MG TAB PO SCH (12:18)
[2017-06-08] MEDS: DEXTROSE 5% IN WATER 1,000 ML with SODIUM BICARB (1 MEQ/ML) 150 ML IV SCH (12:18)
[2017-06-08] MEDS: hydrALAZINE HCL 25 MG TAB PO SCH ×3 (12:18→21:58)
[2017-06-08] MEDS ORDERED: VANCOMYCIN IV PER PHARMACY 1 EACH MISC MISCELLANE PRN (12:19)
--- NOTE | 2017-06-08 12:21 | CT ---
EXAMINATION TYPE: CT abdomen pelvis wo con DATE OF EXAM: 06/08/2017 COMPARISON: Previous study dated 06/23/2015. HISTORY: Gross hematuria with generalized pain CT DLP: 423.2 mGycm Automated exposure control for dose reduction was used. FINDINGS: There are moderate bilateral effusions with associated atelectatic change at the lung bases . There is there is no pericardial fluid. The heart is not enlarged. Within the abdomen, the liver, spleen and gallbladder are unremarkable. The right adrenal gland is normal. 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 There are multiple nonobstructing right renal calculus. The largest is in the posterior right upper p ole calyx and this measures 1.9 cm. There is a 1.3 cm calculus in the proximal right ureter. There is mild associated hydronephrosis and stranding around the right kidney. Limited views of the pancreas demonstrate pancreatic atrophy. There is no significant retroperitoneal, iliac or inguinal adenopathy. There is a Huff catheter within the bladder. There is no significant diverticular change and there is no radiographic evidence of diverticulitis. The appendix is normal. Small bowel caliber is normal. There is no free fluid and no free air. There is mild, generalized anasarca. 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 IMPRESSION: 1. EVIDENCE OF A PREVIOUS LEFT NEPHRECTOMY AND ADRENALECTOMY. 2. MULTIPLE NONOBSTRUCTING RIGHT RENAL CALCULI. 3. PARTIALLY OBSTRUCTING 1.3 CM CALCULUS IN THE PROXIMAL RIGHT URETER. 4. BILATERAL EFFUSIONS. 5. DEGENERATIVE CHANGE WITHIN THE SPINE.
[2017-06-08] MEDS: VANCOMYCIN 1,500 MG in SODIUM CHLORIDE 0.9% 250 ML IVPB ONE ×2 (13:49→13:51)
[2017-06-08] MEDS ORDERED: VANCOMYCIN 1,500 MG in SODIUM CHLORIDE 0.9% 250 ML IVPB ONE (14:00)
[2017-06-08 15:54] LABS: Appearance,Urine Clear (Clear); Bilirubin,Urine Negative (Negative); Blood,Urine Large (Negative); Color,Urine Light Red; Glucose,Urine (UA) Negative (Negative); Ketones,Urine Negative (Negative); Leukocyte Esterase,Urine Trace (Negative); Protein,Urine Trace (Negative); RBC,Urine >182 /hpf (0-5); Specific Gravity,Urine 1.007 (1.001-1.035); Urobilinogen,Urine <2.0 mg/dL (<2.0); WBC,Urine 63 /hpf (0-5)
--- NOTE | 2017-06-08 18:56 | P.PN ---
Subjective Progress Note Date: 06/08/[address] scan showed a a 13mm upj stone partially obstructing the ureter. In a solitary kidney this is significant and probably contributing to the ARF, I will set him up for a cysto with placement of a double j catheter right tomorrow Objective - Vital Signs Vital signs: Vital Signs Temp 98.4 F 06/08/17 15:00 Pulse 73 06/08/17 16:00 Resp 18 06/08/17 16:00 BP 143/81 06/08/17 15:00 Pulse Ox 97 06/08/17 15:00 Intake & Output 06/07/17 06/08/17 06/08/17 18:59 06:59 18:59 Intake Total 60 1100 160 Output Total 30 90 30 Balance 30 1010 130 Intake: Intake, IV Titration 1100 Amount Sodium Chloride 0.9% 1, 1100 000 ml @ 100 mls/hr IV . Q10H [facility] Rx#:[id number] Oral 60 160 Output: Urine 30 90 30 Uretheral (Huff) 90 0 Other: Voiding Method Urinal Indwelling Catheter Indwelling Catheter # Bowel Movements 1 - Labs CBC & Chem 7: 06/08/17 06:57 06/08/17 06:57 Labs: Abnormal Lab Results - Last 24 Hours (Table) 06/08/17 06/08/17 06/08/17 Range/Units 06:57 06:57 13:00 WBC 15.0 H (3.8-10.6) k/uL Plt Count 77 L (150-450) k/uL Neutrophils # 13.6 H (1.3-7.7) k/uL Lymphocytes # 0.6 L (1.0-4.8) k/uL Chloride 111 H (98-107) mmol/L Carbon Dioxide 15 L (22-30) mmol/L BUN 55 H (9-20) mg/dL Creatinine 7.81 H* (0.66-1.25) mg/dL Calcium 8.3 L (8.4-10.2) mg/dL Urine Protein Trace H (Negative) Urine Blood Large H (Negative) Ur Leukocyte Esterase Trace H (Negative) Urine RBC >182 H (0-5) /hpf Urine WBC 63 H (0-5) /hpf Microbiology - Last 24 Hours (Table) 06/05/17 15:35 Urine Culture - Final Urine,Catheterized 06/05/17 18:18 Blood Culture Gram Stain - Final Blood Blood Culture - Final Enterococcus faecalis
[2017-06-09] MEDS: DEXTROSE 5% IN WATER 1,000 ML with SODIUM BICARB (1 MEQ/ML) 150 ML IV SCH ×3 (03:09→21:28)
[2017-06-09 08:17] LABS: Calcium 8.3 mg/dL (8.4-10.2); Potassium 4.4 mmol/L (3.5-5.1)
[2017-06-09] MEDS: hydrALAZINE HCL 25 MG TAB PO SCH ×3 (10:03→21:04)
[2017-06-09 11:25] LABS: Protein, Total 4.7 g/dL (6.2-8.2)
--- NOTE | 2017-06-09 11:26 | P.PN ---
Subjective Patient is seen in follow-up for acute kidney injury. His baseline creatinine is 1 and renal function has been progressively worsening over the last few days. Creatinine is up to 8.42 today. Over the last 6 weeks or so he's had recurrent bouts of infection with UTI and bacteremia. His current blood cultures are positive for enterococcus facialis. He was switched over from IV Unasyn to IV vancomycin. He is oliguric. Patient is awake and alert. Denies chest pain or shortness of breath. Oral intake is fair. Denies nausea or vomiting. His urine eosinophils were positive at 10% and he was started on prednisone 60 mg on June 08. Vital signs are stable. General: The patient appeared well nourished and normally developed. HEENT: Head exam is unremarkable. Neck is without jugular venous distension. LUNGS: Lungs are clear to auscultation and percussion. Breath sounds decreased. HEART: Rate and Rhythm are regular. First and second heart sounds normal. No murmurs, rubs or gallops. ABDOMEN: Abdominal exam reveals normal bowel sounds. Non-tender and non- distended. No evidence of peritonitis. EXTREMITITES: No clubbing, cyanosis, or edema. Objective - Vital Signs Vital signs: Vital Signs Temp 97.6 F 06/09/17 07:00 Pulse 66 06/09/17 07:00 Resp 16 06/09/17 07:00 BP 124/63 06/09/17 07:00 Pulse Ox 91 L 06/09/17 07:00 Intake & Output 06/08/17 06/09/17 06/09/17 18:59 06:59 18:59 Intake Total 160 920 Output Total 30 50 Balance 130 870 Weight 81.647 kg Intake: Intake, IV Titration 800 Amount Dextrose 5% in Water 1, 800 000 ml @ 100 mls/hr IV . [id number] [facility] with Sodium Bicarb (1 Meq/ml) 150 ml Rx#:[id number] Oral 160 120 Output: Urine 30 50 Uretheral (Huff) 0 Other: Voiding Method Indwelling Catheter Indwelling Catheter # Bowel Movements 1 - Labs CBC & Chem 7: 06/08/17 06:57 06/09/17 07:11 Labs: Abnormal Lab Results - Last 24 Hours (Table) 06/08/17 06/09/17 Range/Units 13:00 07:11 BUN 66 H (9-20) mg/dL Creatinine 8.42 H* (0.66-1.25) mg/dL Glucose 128 H (74-99) mg/dL Calcium 8.3 L (8.4-10.2) mg/dL Urine Protein Trace H (Negative) Urine Blood Large H (Negative) Ur Leukocyte Esterase Trace H (Negative) Urine RBC >182 H (0-5) /hpf Urine WBC 63 H (0-5) /hpf Assessment and Plan Plan: Assessment: #1. Acute kidney injury secondary to ATN secondary to sepsis and obstructive uropathy. 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 His urine eosinophils are positive at 10%. Creatinine up to 8.4 to today. Baseline creatinine is near 1. No evidence of hydronephrosis noted on renal ultrasound but does have hydronephrosis on CAT scan. Also rule out GN as he does have proteinuria on UA. #2. 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 #3. Metabolic acidosis secondary to acute kidney injury. Improved. #4. Nephrolithiasis, which is partially obstructing based on CAT scan. #5. Bacteremia with blood culture positive for group B enterococcus. Plan: Continue isotonic sodium bicarbonate drip to be run at 100 mL an hour. Continue with IV antibiotics - monitor vancomycin levels closely. Follow-up serologies. Continue prednisone 60 mg once daily today. Urology following - scheduled for cystoscopy with stent placement today. Avoid nephrotoxic agents and hypotensive episodes. Continue to monitor renal function and urine output closely. I discussed with the patient and his son present at bedside regarding the potential need for renal replacement therapy in the next few days if no improvement in his renal function and urine output. They are in agreement to proceed if needed. No urgent need at this time.
[2017-06-09 11:55] LABS: Anti-DNA, DS unit <1.0 IU/mL; DNA Double-Stranded NEGATIVE (NEGATIVE)
[2017-06-09] MEDS ORDERED: VANCOMYCIN 1,500 MG in SODIUM CHLORIDE 0.9% 250 ML IVPB ONE (12:00)
[2017-06-09 12:13] LABS: Complement C3 95.1 mg/dL (80.0-207.0)
[2017-06-09] MEDS: SODIUM BICARBONATE TAB 650 MG TAB PO SCH ×2 (12:38→21:04)
[2017-06-09] MEDS: predniSONE 20 MG TAB PO SCH (12:38)
[2017-06-09] MEDS ORDERED: LACTATED RINGERS 1,000 ML IV ONE (17:12)
[2017-06-09] MEDS ORDERED: PHENYLEPHRINE-0.9% NACL SYG 1 MG/10 ML SYRINGE ONE (18:28)
[2017-06-09] MEDS ORDERED: LIDOCAINE 1% INJ 10MG/ML (20 ML MDV) ONE (18:28)
[2017-06-09] MEDS ORDERED: PROPOFOL 10 MG/ML 20 ML VIAL IV ONE (18:28)
[2017-06-09] MEDS ORDERED: fentaNYL (PF) 50 MCG/ML 2 ML AMP ONE (18:28)
--- NOTE | 2017-06-09 19:18 | P.OP ---
Date of Procedure: 06/09/17 Preoperative Diagnosis: Right hydronephrosis secondary to right UPJ calculus Postoperative Diagnosis: Same Procedure(s) Performed: Cystoscopy with right ureteral stent insertion Anesthesia: PATRICKA Surgeon: Everton Williamson Estimated Blood Loss (ml): 0 IV fluids (ml): 300 Pathology: none sent Condition: stable Disposition: PACU Indications for Procedure: The patient is an 87-year-old white male with a solitary right kidney. Renal function studies are consistent with renal failure, and a computed tomography scan shows evidence of right hydronephrosis secondary to a 13 mm) proximal ureteral calculus at the UPJ. He now comes for stent placement. Operative Findings: Obstructing calculus at right UPJ. Obstruction is successfully relieved. Description of Procedure: The patient was taken to the operating room and placed in the dorsolithotomy position, with legs supported in Joe stirrups. The external genitalia was prepped and draped sterilely. The 30 lens was used to introduce the 22-Japanese Stortz cystoscopic sheath through the urethra and into the bladder under direct vision. The prostatic urethra was visually occluded, with a bilobar configuration. Some oozing was noted from the vesical neck, limiting visualization. The bladder was inspected. Both ureteral orifices were of normal anatomic location and configuration. No tumors or foreign bodies were seen. A 0.035 inch angled-tip Glidewire was passed through the cystoscope, and the right ureteral orifice was cannulated. However, the Glidewire could not be advanced through the distal ureter. Therefore, a straight-tipped 0.035 inch Glidewire was successfully passed through this portion of the ureter. Fluoroscopy was utilized as the Glidewire was advanced. The Glidewire passed beyond the UPJ calculus without difficulty, and a 26 cm, 6-Japanese double-J ureteral stent was placed over the wire. Proper stent positioning was verified fluoroscopically and endoscopically. There was evidence of a hydronephrotic beauchamp. The cystoscope was removed, and a 16-Japanese Huff catheter was placed. The patient tolerated the procedure well was taken to the recovery room in stable condition.
--- NOTE | 2017-06-09 22:24 | FL ---
EXAMINATION TYPE: FL guidance operating room DATE OF EXAM: 06/09/2017 FLUOROSCOPY Fluoroscopy time of 20 seconds was used during right ureteral stent placement. 1 image/s document/s the procedure.
--- NOTE | 2017-06-10 01:03 | PN ---
PROGRESS NOTE ATTENDING PHYSICIAN: Dr. Shiv Kennedy CHIEF COMPLAINT: Re-evaluation. HISTORY OF PRESENT ILLNESS: This 87-year-old gentleman was admitted to the hospital with acute renal failure. The patient has some evidence of obstruction. He does have kidney stones. The patient otherwise has no symptoms. He is actually alert, in no distress, feeling much better. He did have Enterococcus D sepsis. He is on vancomycin, pharmacy dosing. REVIEW OF SYSTEMS: NEURO: Denies any headaches, dizziness. PSYCH: No anxiety. CARDIAC: No chest pain, angina, palpitation. RESPIRATORY: No shortness of breath, cough. GI: No nausea, vomiting, abdominal pain, diarrhea. : No symptoms of dysuria, some hematuria. He does have a Huff catheter. EXTREMITIES: No pain. Some edema. CONSTITUTIONAL: No fever, chills. PHYSICAL EXAMINATION: Pleasant gentleman in no distress. Vital signs revealed temperature 97.6, pulse 66, respirations 16, blood pressure 124/63, pulse ox 99% room air. HEENT: Normocephalic. NECK: No JVD. CHEST: Clear to auscultation cardiac. CARDIAC: Normal S1, S2 with no gallops. Systolic murmur 2/6 left sternal border. ABDOMEN: Soft. No palpable masses. Bowel sounds normal. No organomegaly. No abdominal bruits. Extremities reveal trace edema. NEUROLOGICAL: Awake, alert, oriented with well-coordinated movements. LABORATORY ASSESSMENT: Electrolytes normal. BUN 66, creatinine 8.42. ASSESSMENT: 1. Acute renal failure. 2. Nephrolithiasis with some obstruction. 3. History of left nephrectomy for carcinoma of the kidney. 4. Bacteremia. 5. Sepsis, resolved. PLAN: The patient at present is stable. Continue present medical regimen. The patient to have a surgical procedure of relieving the UVJ obstruction. Continue present antibiotic regimen. Prognosis guarded. Condition has been discussed with the patient and son. Nephrology is following the patient. MMODL / IJN: [id number] /
[2017-06-10] MEDS: hydrALAZINE HCL 25 MG TAB PO SCH ×3 (07:47→22:24)
[2017-06-10] MEDS: SODIUM BICARBONATE TAB 650 MG TAB PO SCH ×2 (07:48→20:35)
[2017-06-10] MEDS: predniSONE 20 MG TAB PO SCH (07:48)
[2017-06-10 08:04] LABS: Calcium 8.1 mg/dL (8.4-10.2); Potassium 3.8 mmol/L (3.5-5.1)
[2017-06-10 08:32] LABS: Vancomycin,Random 16.8 ug/mL
[2017-06-10] MEDS: HEPARIN SODIUM,PORCINE 5,000 UNIT/ML 1 ML VIAL SQ SCH ×2 (08:34→20:35)
[2017-06-10 08:40] LABS: Basophils % (A) 0 %; Eosinophils % (A) 0 %; HCT 41.2 % (39.0-53.0); HGB 13.4 gm/dL (13.0-17.5); Lymphocytes # (A) 0.5 k/uL (1.0-4.8); Lymphocytes % (A) 5 %; MCH 27.6 pg (25.0-35.0); MCHC 32.6 g/dL (31.0-37.0); MCV 84.8 fL (80.0-100.0); Mean Platelet Volume 8.3; Monocytes # (A) 0.3 k/uL (0-1.0); Monocytes % (A) 3 %; Neutrophils # (A) 8.7 k/uL (1.3-7.7); Neutrophils % (A) 90 %; RBC 4.86 m/uL (4.30-5.90); RDW 13.5 % (11.5-15.5); WBC 9.6 k/uL (3.8-10.6)
[2017-06-10 08:44] LABS: Platelet Count 95 k/uL (150-450)
[2017-06-10] MEDS ORDERED: VANCOMYCIN 1,500 MG in SODIUM CHLORIDE 0.9% 250 ML IVPB ONE (10:00)
[2017-06-10] MEDS ORDERED: predniSONE 20 MG TAB PO SCH (10:50)
--- NOTE | 2017-06-10 11:27 | P.PN ---
Subjective Patient is seen in follow-up for acute kidney injury. His baseline creatinine is 1 and creatinine peaked at 8.42 yesterday. Over the last 6 weeks or so he's had recurrent bouts of infection with UTI and bacteremia. His current blood cultures are positive for enterococcus facialis. He was switched over from IV Unasyn to IV vancomycin. He was also noted to have hydronephrosis of the solitary kidney and underwent double-J stent placement on June 09. His urine output has improved. Creatinine is down to 3.35. Patient is awake and alert. Denies chest pain or shortness of breath. Oral intake is fair. Denies nausea or vomiting. His urine eosinophils were positive at 10% and he was started on prednisone 60 mg on June 08. Vital signs are stable. General: The patient appeared well nourished and normally developed. HEENT: Head exam is unremarkable. Neck is without jugular venous distension. LUNGS: Lungs are clear to auscultation and percussion. Breath sounds decreased. HEART: Rate and Rhythm are regular. First and second heart sounds normal. No murmurs, rubs or gallops. ABDOMEN: Abdominal exam reveals normal bowel sounds. Non-tender and non- distended. No evidence of peritonitis. EXTREMITITES: No clubbing, cyanosis, or edema. Objective - Vital Signs Vital signs: Vital Signs Temp 97.4 F L 06/10/17 07:00 Pulse 77 06/10/17 09:27 Resp 16 06/10/17 09:27 BP 133/78 06/10/17 07:00 Pulse Ox 92 L 06/10/17 07:00 Intake & Output 06/09/17 06/10/17 06/10/17 18:59 06:59 18:59 Intake Total 330 1340 Output Total 150 800 Balance 180 540 Intake: IV 300 900 Dextrose 5% in Water 1, 800 000 ml @ 100 mls/hr IV . [id number] [facility] with Sodium Bicarb (1 Meq/ml) 150 ml Rx#:[id number] Intake, IV Titration 200 Amount Dextrose 5% in Water 1, 100 000 ml @ 100 mls/hr IV . [id number] [facility] with Sodium Bicarb (1 Meq/ml) 150 ml Rx#:[id number] Lactated Ringers 1,000 ml 100 As IV .[facility] Rx#: [id number] Oral 30 240 Output: Urine 150 800 Uretheral (Huff) 800 Other: Voiding Method Indwelling Catheter Indwelling Catheter Indwelling Catheter # Bowel Movements 1 - Labs CBC & Chem 7: 06/10/17 07:06 06/10/17 07:06 Labs: Abnormal Lab Results - Last 24 Hours (Table) 06/09/17 06/10/17 06/10/17 Range/Units 07:11 07:06 07:06 Plt Count 95 L (150-450) k/uL Neutrophils # 8.7 H (1.3-7.7) k/uL Lymphocytes # 0.5 L (1.0-4.8) k/uL BUN 48 H (9-20) mg/dL Creatinine 3.35 H (0.66-1.25) mg/dL Glucose 145 H (74-99) mg/dL Calcium 8.1 L (8.4-10.2) mg/dL Total Protein (PEP) 4.7 L (6.2-8.2) g/dL Assessment and Plan Plan: Assessment: #1. Acute kidney injury secondary to ATN secondary to sepsis and obstructive uropathy. 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 His urine eosinophils are positive at 10%. Creatinine peaked at 8.42 yesterday and is down to 3.35 today. Baseline creatinine is near 1. No evidence of hydronephrosis noted on renal ultrasound but does have hydronephrosis on CAT scan. Also rule out GN as he does have proteinuria on UA. #2. 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 #3. Metabolic acidosis secondary to acute kidney injury. Improved. #4. Nephrolithiasis, which is partially obstructing based on CAT scan, status post ureteral stent placement on June 09. #5. Bacteremia with blood culture positive for group B enterococcus. Plan: Discontinue sodium bicarbonate drip. Start normal saline at 75 mL an hour. Decrease prednisone to 40 mg daily (prednisone was initially started on June 08 at a dose of 60 mg daily). Continue with IV antibiotics - monitor vancomycin levels closely. Follow-up serologies. Avoid nephrotoxic agents and hypotensive episodes. Continue to monitor renal function and urine output closely. Repeat electrolytes in the morning.
[2017-06-10] MEDS: DEXTROSE 5% IN WATER 1,000 ML with SODIUM BICARB (1 MEQ/ML) 150 ML IV SCH (11:46)
[2017-06-10] MEDS: SODIUM CHLORIDE 0.9% 1,000 ML IV SCH (11:48)
[2017-06-10 15:41] LABS: C-ANCA <1:20 Titer (<1:20); P-ANCA <1:20 Titer (<1:20)
--- NOTE | 2017-06-10 18:29 | P.PN ---
Subjective Progress Note Date: 06/10/17 Principal diagnosis: Sepsis 87-year-old gentleman who was admitted to the hospital with an acute renal failure which turned out to be an obstructive element from the ureterovesical junction calculus Patient only has one kidney has had aprevious nephrectomy with left side for albert with no evidence. Patient also had evidence of bacteremia and sepsis. The patient is on vancomycin for enterococcus pharmacies monitoring vancomycin dosing. Patient is also followed by urology and nephrology. Patient's general condition is improved ,he remains alert with no symptoms. He has a Huff catheter in place which is draining clear urine today. Has had no fever or chills. He is still on IV hydration. We will resume heparin as has improved platelet count and no evidence of bleeding. REVIEW OF SYSTEMS: Neuro:[ Denies any headaches dizziness.] Psych: [Denies anxiety depression feels oriented.] Cardiac: [Denies chest pain and angina palpitations.] Respiratory: [Denies shortness of breath cough]. GI: [Denies nausea vomiting or abdominal pain. No diarrhea or constipation, no bowel movement yet.] :[ Denies dysuria hematuria.] Extremities:[ Denies pain. No edema.] Skin:[ Intact]. Constitutional: [No fever, chills.] Objective - Vital Signs Vital signs: Vital Signs Temp 97.3 F L 06/10/17 15:00 Pulse 94 06/10/17 15:00 Resp 16 06/10/17 15:00 BP 125/61 06/10/17 15:00 Pulse Ox 93 L 06/10/17 15:00 Intake & Output 06/09/17 06/10/17 06/10/17 18:59 06:59 18:59 Intake Total 330 1340 750 Output Total 150 800 800 Balance 180 540 -50 Intake: IV 300 900 600 Dextrose 5% in Water 1, 800 600 000 ml @ 100 mls/hr IV . [id number] [facility] with Sodium Bicarb (1 Meq/ml) 150 ml Rx#:[id number] Intake, IV Titration 200 150 Amount Dextrose 5% in Water 1, 100 000 ml @ 100 mls/hr IV . [id number] [facility] with Sodium Bicarb (1 Meq/ml) 150 ml Rx#:[id number] Lactated Ringers 1,000 ml 100 As IV .[facility] Rx#: [id number] Sodium Chloride 0.9% 1, 150 000 ml @ 75 mls/hr IV . [id number] Rx#:[id number] Oral 30 240 Output: Urine 150 800 800 Uretheral (Huff) 800 100 Other: Voiding Method Indwelling Catheter Indwelling Catheter Indwelling Catheter # Bowel Movements 1 PHYSICAL EXAMINATION: Cooperative, at present in no acute distress. HEENT: [Neck supple. No JVD.] Chest: [Clear to auscultation][ percussion.] Cardiac: [Normal S1-S2] [no gallops] [no murmur ]. Abdomen:[ Soft ][bowel sounds present.] Extremities: [ trace edema] [no tenderness ] Neurologically: [Awake, alert, oriented with well-coordinated movements.] - Labs CBC & Chem 7: 06/10/17 07:06 06/10/17 07:06 Labs: Abnormal Lab Results - Last 24 Hours (Table) 06/10/17 06/10/17 Range/Units 07:06 07:06 Plt Count 95 L (150-450) k/uL Neutrophils # 8.7 H (1.3-7.7) k/uL Lymphocytes # 0.5 L (1.0-4.8) k/uL BUN 48 H (9-20) mg/dL Creatinine 3.35 H (0.66-1.25) mg/dL Glucose 145 H (74-99) mg/dL Calcium 8.1 L (8.4-10.2) mg/dL Assessment and Plan Assessment: ASSESSMENT: 1. [acute renal failure secondary to obstruction]. 2. [nephrolithiasis]. 3. [history of left nephrectomy for renal cell carcinoma]. 4. [thrombocytopenia]. 5. [bacteremia]. 6. [sepsis]. 7. [debility]. PLAN: [plan continue present medical regimen patient's condition discussed with patient Hopefully we'll be able to DC patient's Huff catheter tomorrow or earlier if urology feels so. will continue IV fluids at present with possibly discontinuing it by tomorrow. We'll continue IV antibiotics. Patient' s prognosis from his cardiac diet may require placement for rehab.].
[2017-06-11] MEDS: SODIUM CHLORIDE 0.9% 1,000 ML IV SCH (05:36)
[2017-06-11] MEDS: hydrALAZINE HCL 25 MG TAB PO SCH ×3 (07:43→21:31)
[2017-06-11] MEDS: SODIUM BICARBONATE TAB 650 MG TAB PO SCH (07:45)
[2017-06-11] MEDS: HEPARIN SODIUM,PORCINE 5,000 UNIT/ML 1 ML VIAL SQ SCH ×2 (07:45→21:31)
[2017-06-11 08:00] LABS: Anion Gap 5 mmol/L; Blood Urea Nitrogen 34 mg/dL (9-20); Carbon Dioxide 27 mmol/L (22-30); Chloride 109 mmol/L (98-107); Glucose 91 mg/dL (74-99); Potassium 3.9 mmol/L (3.5-5.1); Sodium 141 mmol/L (137-145)
[2017-06-11] MEDS ORDERED: FUROSEMIDE 10 MG/ML 2 ML VIAL IV STA (08:16)
[2017-06-11] MEDS ORDERED: VANCOMYCIN 1,500 MG in SODIUM CHLORIDE 0.9% 250 ML IVPB ONE (10:00)
--- NOTE | 2017-06-11 10:22 | P.PN ---
Subjective Patient is seen in follow-up for acute kidney injury. His baseline creatinine is 1 and creatinine peaked at 8.42 yesterday. Over the last 6 weeks or so he's had recurrent bouts of infection with UTI and bacteremia. His current blood cultures are positive for enterococcus facialis. He was switched over from IV Unasyn to IV vancomycin. He was also noted to have hydronephrosis of the solitary kidney and underwent double-J stent placement on June 09. His urine output has improved. Creatinine is down to 1.27. Patient is awake and alert. Denies chest pain or shortness of breath. Oral intake is fair. Denies nausea or vomiting. His urine eosinophils were positive at 10% and he was started on prednisone 60 mg on June 08, which is being tapered. Vital signs are stable. General: The patient appeared well nourished and normally developed. HEENT: Head exam is unremarkable. Neck is without jugular venous distension. LUNGS: Lungs are clear to auscultation and percussion. Breath sounds decreased. HEART: Rate and Rhythm are regular. First and second heart sounds normal. No murmurs, rubs or gallops. ABDOMEN: Abdominal exam reveals normal bowel sounds. Non-tender and non- distended. No evidence of peritonitis. EXTREMITITES: No clubbing, cyanosis, or edema. Objective - Vital Signs Vital signs: Vital Signs Temp 98 F 06/11/17 07:32 Pulse 66 06/11/17 09:32 Resp 17 06/11/17 09:32 BP 145/69 06/11/17 07:32 Pulse Ox 91 L 06/11/17 07:32 Intake & Output 06/10/17 06/11/17 06/11/17 18:59 06:59 18:59 Intake Total 750 975 Output Total 800 600 Balance -50 375 Intake: IV 600 Dextrose 5% in Water 1, 600 000 ml @ 100 mls/hr IV . [id number] [facility] with Sodium Bicarb (1 Meq/ml) 150 ml Rx#:[id number] Intake, IV Titration 150 975 Amount Sodium Chloride 0.9% 1, 150 975 000 ml @ 75 mls/hr IV . [id number] [facility] Rx#:[id number] Output: Urine 800 600 Uretheral (Huff) 100 Other: Voiding Method Indwelling Catheter Indwelling Catheter Indwelling Catheter - Labs CBC & Chem 7: 06/10/17 07:06 06/11/17 06:54 Labs: Abnormal Lab Results - Last 24 Hours (Table) 06/11/17 Range/Units 06:54 Chloride 109 H (98-107) mmol/L BUN 34 H (9-20) mg/dL Creatinine 1.27 H (0.66-1.25) mg/dL Calcium 8.0 L (8.4-10.2) mg/dL Assessment and Plan Plan: Assessment: #1. Acute kidney injury secondary to ATN secondary to sepsis and obstructive uropathy. 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 His urine eosinophils are positive at 10%. Creatinine peaked at 8.42 yesterday and is down to 1.27 today. Baseline creatinine is near 1. No evidence of hydronephrosis noted on renal ultrasound but does have hydronephrosis on CAT scan. Also rule out GN as he does have proteinuria on UA - so far serologies have been negative. #2. 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 #3. Metabolic acidosis secondary to acute kidney injury. Improved. #4. Nephrolithiasis, which is partially obstructing based on CAT scan, status post ureteral stent placement on June 09. #5. Bacteremia with blood culture positive for group B enterococcus. Plan: Hep-Lock IV fluids. Decrease prednisone to 20 mg daily (prednisone was initially started on June 08 at a dose of 60 mg daily) - will taper over the next 3 days and discontinue completely. Continue with IV antibiotics - monitor vancomycin levels closely. Follow-up serologies. Avoid nephrotoxic agents and hypotensive episodes. Continue to monitor renal function and urine output closely. Repeat electrolytes in the morning.
[2017-06-11 11:06] LABS: Gamma Globulin 0.77 g/dL (0.70-1.50)
--- NOTE | 2017-06-11 13:54 | PN ---
PROGRESS NOTE CHIEF COMPLAINT: Re-evaluation. HISTORY OF PRESENT ILLNESS: This is an 87-year-old gentleman who was admitted to the hospital with acute renal failure. The patient is noted to have an obstructive element. The patient was also placed on prednisone by the leg breaker in case the patient has some nephritis. However, the patient seems to have responded well to removing this right UVJ stone. The patient denies any symptoms today. REVIEW OF SYSTEMS: NEURO: Denies any headaches, dizziness. PSYCH: No anxiety. CARDIAC: No chest pain, angina, palpitation, shortness of breath. GI: No nausea, vomiting, abdominal pain. No bowel movement. : No symptoms dysuria, hematuria, has IDC. EXTREMITIES: No pain, edema. The patient is otherwise is feeling better. CONSTITUTIONAL: No fever, chills. PHYSICAL EXAMINATION: Pleasant gentleman in no distress. Vital signs are stable. Patient being afebrile since admission. The patient's temperature is 98, pulse 66, respirations 17, blood pressure 145/69, pulse ox of 91. HEENT: Normocephalic. NECK: Supple. No JVD. CHEST: Clear to auscultation with some dullness to percussion right base with decreased air flow at the right base. CARDIAC: Normal S1, S2 with no gallops, murmurs. ABDOMEN: Soft. Bowel sounds present. Extremities reveal trace edema at the ankles; however, the patient has significant dependent edema lumbar area, buttocks and upper thighs. LABORATORY ASSESSMENT: Normal electrolytes. Patient's BUN 34, creatinine 1.27, calcium 8.0. ASSESSMENT: 1. Acute renal failure, resolving secondary to obstructive etiology. 2. History of left nephrectomy. 3. Bacteremia and sepsis, improving. PLAN: Continue present medical regimen. Patient's condition discussed with the patient. Prognosis guarded. Nephrology has the patient's steroids will give the final opinion. Meanwhile, continue with the patient and might be able to remove the Huff catheter. Discontinue the IV fluids. Prognosis remains guarded. Condition discussed with the patient. Would recommend placement for rehab again. MMODL / IJN: [id number] /
--- NOTE | 2017-06-12 06:38 | P.PN ---
Subjective Progress Note Date: 06/12/17 Patient is doing well after right double-J catheter placement. His creatinine is down into the low 1 range. His urine is clear and he is feeling well. I will discontinue his Huff. From urologic standpoint he can be discharged home. He should follow in the office in one week. I will discuss with the patient and his son the options of treatment for these stones that most likely he would benefit from a percutaneous nephrostolithotomy to remove all the stones from his right kidney. Objective - Vital Signs Vital signs: Vital Signs Temp 98.0 F 06/11/17 21:10 Pulse 86 06/11/17 21:10 Resp 16 06/11/17 21:10 BP 132/74 06/11/17 21:10 Pulse Ox 98 06/11/17 21:10 Intake & Output 06/11/17 06/11/17 06/12/17 06:59 18:59 06:59 Intake Total 975 1176 Output Total 600 1250 800 Balance 375 -74 -800 Intake: Intake, IV Titration 975 400 Amount Sodium Chloride 0.9% 1, 975 150 000 ml @ 75 mls/hr IV . [id number] [facility] Rx#:[id number] Vancomycin 1,500 mg In 250 Sodium Chloride 0.9% 250 ml @ 125 mls/hr IVPB ONCE ONE Rx#:[id number] Oral 776 Output: Urine 600 1250 800 Uretheral (Huff) 850 300 Other: Voiding Method Indwelling Catheter Indwelling Catheter Indwelling Catheter # Voids 0 - Labs CBC & Chem 7: 06/10/17 07:06 06/11/17 06:54 Labs: Abnormal Lab Results - Last 24 Hours (Table) 06/09/17 06/11/17 Range/Units 07:11 06:54 Chloride 109 H (98-107) mmol/L BUN 34 H (9-20) mg/dL Creatinine 1.27 H (0.66-1.25) mg/dL Calcium 8.0 L (8.4-10.2) mg/dL Albumin (PEP) 2.30 L (3.80-4.90) g/dL
[2017-06-12 07:42] LABS: Anion Gap 6 mmol/L; Blood Urea Nitrogen 32 mg/dL (9-20); Calcium 8.2 mg/dL (8.4-10.2); Carbon Dioxide 28 mmol/L (22-30); Chloride 105 mmol/L (98-107); Glucose 82 mg/dL (74-99); Potassium 3.6 mmol/L (3.5-5.1); Sodium 139 mmol/L (137-145)
[2017-06-12 07:47] LABS: Vancomycin,Random 13.9 ug/mL
[2017-06-12] MEDS ORDERED: FUROSEMIDE 20 MG TAB PO STA (08:14)
[2017-06-12] MEDS ORDERED: predniSONE 20 MG TAB PO SCH (09:00)
[2017-06-12] MEDS: HEPARIN SODIUM,PORCINE 5,000 UNIT/ML 1 ML VIAL SQ SCH ×2 (09:02→20:39)
[2017-06-12] MEDS: hydrALAZINE HCL 25 MG TAB PO SCH ×3 (09:03→20:51)
[2017-06-12] MEDS: POTASSIUM CHLORIDE ER 20 MEQ TAB.ER PO SCH ×2 (09:03→20:39)
--- NOTE | 2017-06-12 10:02 | P.PN ---
Subjective Patient is seen in follow-up for acute kidney injury. His baseline creatinine is 1 and creatinine peaked at 8.42 this admission. Over the last 6 weeks or so he's had recurrent bouts of infection with UTI and bacteremia. His current blood cultures are positive for enterococcus facialis. He was switched over from IV Unasyn to IV vancomycin. He was also noted to have hydronephrosis of the solitary kidney and underwent double-J stent placement on June 09. His urine output has improved. Creatinine is down to 1.1. Patient is awake and alert. Denies chest pain or shortness of breath. Oral intake is fair. Denies nausea or vomiting. His urine eosinophils were positive at 10% and he was started on prednisone 60 mg on June 08, which is being tapered. Edema improving. Vital signs are stable. General: The patient appeared well nourished and normally developed. HEENT: Head exam is unremarkable. Neck is without jugular venous distension. LUNGS: Lungs are clear to auscultation and percussion. Breath sounds decreased. HEART: Rate and Rhythm are regular. First and second heart sounds normal. No murmurs, rubs or gallops. ABDOMEN: Abdominal exam reveals normal bowel sounds. Non-tender and non- distended. No evidence of peritonitis. EXTREMITITES: No clubbing, cyanosis, or edema. Objective - Vital Signs Vital signs: Vital Signs Temp 98.3 F 06/12/17 07:00 Pulse 60 06/12/17 07:00 Resp 18 06/12/17 07:00 BP 126/66 06/12/17 07:00 Pulse Ox 92 L 06/12/17 07:00 Intake & Output 06/11/17 06/12/17 06/12/17 18:59 06:59 18:59 Intake Total 1176 Output Total 1250 800 Balance -74 -800 Intake: Intake, IV Titration 400 Amount Sodium Chloride 0.9% 1, 150 000 ml @ 75 mls/hr IV . [id number] [facility] Rx#:[id number] Vancomycin 1,500 mg In 250 Sodium Chloride 0.9% 250 ml @ 125 mls/hr IVPB ONCE ONE Rx#:[id number] Oral 776 Output: Urine 1250 800 Uretheral (Huff) 850 300 Other: Voiding Method Indwelling Catheter Indwelling Catheter # Voids 0 - Labs CBC & Chem 7: 06/10/17 07:06 06/12/17 06:34 Labs: Abnormal Lab Results - Last 24 Hours (Table) 06/09/17 06/12/17 Range/Units 07:11 06:34 BUN 32 H (9-20) mg/dL Calcium 8.2 L (8.4-10.2) mg/dL Albumin (PEP) 2.30 L (3.80-4.90) g/dL Assessment and Plan Plan: Assessment: #1. Acute kidney injury secondary to ATN secondary to sepsis and obstructive uropathy. 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 His urine eosinophils are positive at 10%. Creatinine peaked at 8.42 yesterday and is down to 1.1 today. Baseline creatinine is near 1. No evidence of hydronephrosis noted on renal ultrasound but does have hydronephrosis on CAT scan. Also rule out GN as he does have proteinuria on UA - so far serologies have been negative. #2. 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 #3. Metabolic acidosis secondary to acute kidney injury. Improved. #4. Nephrolithiasis, which is partially obstructing based on CAT scan, status post ureteral stent placement on June 09. #5. Bacteremia with blood culture positive for group B enterococcus. #6. Lower extremity edema. Improving with diuresis. Plan: Hep-Lock IV fluids. Decrease prednisone to 20 mg daily (prednisone was initially started on June 08 at a dose of 60 mg daily) - will taper over the next 2 days and discontinue completely. Continue with IV antibiotics - monitor vancomycin levels closely. Serologies negative. Avoid nephrotoxic agents and hypotensive episodes. Continue to monitor renal function and urine output closely. Repeat electrolytes in the morning. Status post 20 mg of Lasix this morning.
[2017-06-12 10:32] VITALS: BMI 23.7
[2017-06-12] MEDS: VANCOMYCIN 1,500 MG in SODIUM CHLORIDE 0.9% 250 ML IVPB SCH (11:32)
--- NOTE | 2017-06-12 17:46 | P.PN ---
Subjective Progress Note Date: 06/12/17 Principal diagnosis: Sepsis 87-year-old gentleman admitted to the hospital with urinary tract infectionand sepsiswith enterococcus bactremia. The patient developed significant azotemia with the urinary obstruction. He only has onekidney. The patient had a UVJ stone. He has a stent with reliefof the obstruction. His creatinine is down to 1.17 today from 8.64 at peak. Patient is feeling finedenies any headaches dizziness chest with sputum production and does have no dysuria his been voidingbowels are moving appetite is improved. The patient has been on prednisone for possibility of nephritis as he had some eosinophils in his urine.patient's on vancomycin for the infection he has Patient's plan for possible discharge home t. REVIEW OF SYSTEMS: Neuro:[ Denies any headaches dizziness.] Psych: [Denies anxiety depression feels oriented.] Cardiac: [Denies chest pain and angina palpitations.] Respiratory: [Denies shortness of breath cough]. GI: [Denies nausea vomiting or abdominal pain. No diarrhea or constipation, no bowel movement yet.] :[ Denies dysuria hematuria.] Extremities:[ Denies pain. Has edema.] Skin:[ Intact]. Constitutional: [No fever, chills.] Objective - Vital Signs Vital signs: Vital Signs Temp 97.1 F L 06/12/17 15:00 Pulse 81 06/12/17 15:00 Resp 20 06/12/17 15:00 BP 112/66 06/12/17 15:00 Pulse Ox 94 L 06/12/17 15:06 Intake & Output 06/11/17 06/12/17 06/12/17 18:59 06:59 18:59 Intake Total 1176 250 Output Total 1250 800 800 Balance -74 -800 -550 Weight 81.647 kg Intake: Intake, IV Titration 400 250 Amount Sodium Chloride 0.9% 1, 150 000 ml @ 75 mls/hr IV . [id number] [facility] Rx#:[id number] Vancomycin 1,500 mg In 250 Sodium Chloride 0.9% 250 ml @ 125 mls/hr IVPB ONCE ONE Rx#:[id number] Vancomycin 1,500 mg In 250 Sodium Chloride 0.9% 250 ml @ 125 mls/hr IVPB Q24HR [facility] Rx#:[id number] Oral 776 Output: Urine 1250 800 800 Uretheral (Huff) 850 300 Other: Voiding Method Indwelling Catheter Indwelling Catheter Urinal # Voids 0 PHYSICAL EXAMINATION: Cooperative, at present in no acute distress. HEENT: [Neck supple. No JVD.] Chest: decreased airflow at the bases with some dullness on percussion indicated of effusions.] Cardiac: [Normal S1-S2] [no gallops] [no murmur ]. Abdomen:[ Soft ][bowel sounds present.] Extremities: [significant ed upper legs buttocks and lumbosacral area] [no tenderness ] Neurologically: [Awake, alert, oriented with well-coordinated movements.] - Labs CBC & Chem 7: 06/10/17 07:06 06/12/17 06:34 Labs: Abnormal Lab Results - Last 24 Hours (Table) 06/12/17 Range/Units 06:34 BUN 32 H (9-20) mg/dL Calcium 8.2 L (8.4-10.2) mg/dL Assessment and Plan Assessment: ASSESSMENT: 1. [acute renal failure resolved]. 2. [nephrolithiasis with urinary tract obstruction relieved]. 3. [urinary tract infection and bacteremia]. 4. [history of left nephrectomy for malignancy]. 5. [renal cell carcinoma in remission]. 6. [possible nephritis]. 7. [edema]. 8. [debility]. PLAN: [continue present medical regimen. Patient be given a dose of Lasix IV fluids of been discontinued patient potential discharge tomorrow. Patient's condition discussed with the son on the phone].
[2017-06-13 07:21] LABS: Glucose,Whole Blood 77 mg/dL (75-99)
[2017-06-13] MEDS: HEPARIN SODIUM,PORCINE 5,000 UNIT/ML 1 ML VIAL SQ SCH (07:23)
[2017-06-13] MEDS: VANCOMYCIN 1,500 MG in SODIUM CHLORIDE 0.9% 250 ML IVPB SCH (07:23)
[2017-06-13 07:31] VITALS: BP 158/75; PULSE 96; RESP 20; TEMP 98.6
[2017-06-13] MEDS: hydrALAZINE HCL 25 MG TAB PO SCH (07:31)
[2017-06-13 08:14] LABS: Anion Gap 5 mmol/L; Blood Urea Nitrogen 29 mg/dL (9-20); Calcium 8.1 mg/dL (8.4-10.2); Carbon Dioxide 31 mmol/L (22-30); Chloride 105 mmol/L (98-107); Glucose 79 mg/dL (74-99); Potassium 3.5 mmol/L (3.5-5.1); Sodium 141 mmol/L (137-145)
[2017-06-13 08:18] LABS: Basophils % (A) 0 %; Eosinophils # (A) 0.4 k/uL (0-0.7); Eosinophils % (A) 4 %; HCT 42.3 % (39.0-53.0); HGB 13.6 gm/dL (13.0-17.5); Lymphocytes # (A) 1.1 k/uL (1.0-4.8); Lymphocytes % (A) 11 %; MCH 28.1 pg (25.0-35.0); MCHC 32.2 g/dL (31.0-37.0); MCV 87.3 fL (80.0-100.0); Mean Platelet Volume 7.8; Monocytes # (A) 0.5 k/uL (0-1.0); Monocytes % (A) 5 %; Neutrophils # (A) 7.8 k/uL (1.3-7.7); Neutrophils % (A) 79 %; RBC 4.84 m/uL (4.30-5.90); RDW 13.7 % (11.5-15.5); WBC 9.9 k/uL (3.8-10.6)
--- NOTE | 2017-06-13 08:21 | P.DS ---
Providers Date of admission: 06/05/17 22:18 Expected date of discharge: 06/13/17 Attending physician: Parvez Kennedy Consults: 06/07/17 08:36 Consult Physician Urgent Consulting Provider: Brando Hickman Consult Reason/Comments: arf Do you want consulting provider notified?: Yes 06/08/17 09:34 Consult Physician Urgent Consulting Provider: Petey Calderon Consult Reason/Comments: bloody urine and decrease output Do you want consulting provider notified?: Yes Primary care physician: Parvez Kennedy Hospital Course: This 87-year-old gentleman was admitted to the hospital with a fever and chill. This new onset sudden onset. Patient seen in the emergency room noted to have suggestion of urinary tract infection and subsequent blood culture positive. Patient has enterococcus in the urine and blood. Patient also had acute renal failure. The patient has a previous left nephrectomy for malignancy. There is no evidence of malignancy recurrence. The patient renal failure progressed to oliguric status. Creatinine was up to about 8. Patient was followed by nephrology. Patient had been on Unasyn for the sepsis. Patient 's vital signs remained stable patient had no major symptoms of uremia except for mild lethargy. The patient ultrasound of the kidneys had not revealed an obstruction however a CAT scan done did show an obstruction of the right UV junction and patient had a right hydronephrosis. A stent was placed with dramatic responses it would be expected. Patient did have some degree of dehydration for which she was given fluids. The patient was noted to have some eosinophils in the urine per urology. I did not see the report. The patient had been placed on prednisone which is being tapered off. The patient is doing well and is back to his usual status does have some debility and weakness. Patient is planned for discharge home with some additional care at home. The patient will have home care physical therapy to rehab him back into [facility]. The patient will be discharged home on amoxicillin for the next 10 days. He has significant anasarca and he'll be placed on Lasix for the next 5 days he will continue with his aspirin. Final diagnosis should include 1. Acute renal failure 2. Obstructive uropathy 3. Post left nephrectomy status 4. History of renal cell carcinoma in remission 5. Nephrolithiasis 6. Bacteremia, enterococcus 7. Sepsis 8. Urinary tract infection 9. Possible nephritis 10. Anasarca 11. Debility Patient Condition at Discharge: Fair Plan - Discharge Summary New Discharge Prescriptions: New Amoxicillin 500 mg PO Q8H #30 capsule Furosemide [Lasix] 20 mg PO DAILY #5 tab Potassium Chloride ER [K-Dur 10] 10 meq PO BID #10 tab predniSONE 5 mg PO DAILY #1 tab Continue Aspirin EC [Ecotrin Low Dose] 81 mg PO DAILY Discharge Medication List Aspirin EC [Ecotrin Low Dose] 81 mg PO DAILY 06/05/17 [History] Amoxicillin 500 mg PO Q8H #30 capsule 06/13/17 [Rx] Furosemide [Lasix] 20 mg PO DAILY #5 tab 06/13/17 [Rx] Potassium Chloride ER [K-Dur 10] 10 meq PO BID #10 tab 06/13/17 [Rx] predniSONE 5 mg PO DAILY #1 tab 06/13/17 [Rx] Follow up Appointment(s)/Referral(s): Petey Calderon MD [STAFF PHYSICIAN] - 1 Week Discharge Disposition: HOME WITH HOME HEALTH SERVICES
[2017-06-13 08:27] LABS: Platelet Count 154 k/uL (150-450)
[2017-06-13] MEDS ORDERED: POTASSIUM CHLORIDE ER 20 MEQ TAB.ER PO STA (08:37)
[2017-06-13] MEDS ORDERED: predniSONE 10 MG TAB PO SCH (09:00)
--- NOTE | 2017-06-13 09:33 | P.PN ---
Subjective Patient is seen in follow-up for acute kidney injury. His baseline creatinine is 1 and creatinine peaked at 8.42 this admission. Over the last 6 weeks or so he's had recurrent bouts of infection with UTI and bacteremia. His current blood cultures are positive for enterococcus facialis. He was switched over from IV Unasyn to IV vancomycin. He was also noted to have hydronephrosis of the solitary kidney and underwent double-J stent placement on June 09. His urine output has improved. Creatinine is down to 1.04. Patient is awake and alert. Denies chest pain or shortness of breath. Oral intake is fair. Denies nausea or vomiting. His urine eosinophils were positive at 10% and he was started on prednisone 60 mg on June 08, which is being tapered. Edema improving. Vital signs are stable. General: The patient appeared well nourished and normally developed. HEENT: Head exam is unremarkable. Neck is without jugular venous distension. LUNGS: Lungs are clear to auscultation and percussion. Breath sounds decreased. HEART: Rate and Rhythm are regular. First and second heart sounds normal. No murmurs, rubs or gallops. ABDOMEN: Abdominal exam reveals normal bowel sounds. Non-tender and non- distended. No evidence of peritonitis. EXTREMITITES: No clubbing, cyanosis, or edema. Objective - Vital Signs Vital signs: Vital Signs Temp 98.6 F 06/13/17 07:00 Pulse 96 06/13/17 07:00 Resp 20 06/13/17 07:00 BP 158/75 06/13/17 07:00 Pulse Ox 96 06/13/17 07:00 Intake & Output 06/12/17 06/13/17 06/13/17 18:59 06:59 18:59 Intake Total 250 Output Total 800 600 Balance -550 -600 Weight 81.647 kg 81.647 kg Intake: Intake, IV Titration 250 Amount Vancomycin 1,500 mg In 250 Sodium Chloride 0.9% 250 ml @ 125 mls/hr IVPB Q24HR [id number] Rx#:[id number] Output: Urine 800 600 Other: Voiding Method Urinal Urinal Toilet Urinal # Voids 1 1 - Labs CBC & Chem 7: 06/13/17 07:23 06/13/17 07:23 Labs: Abnormal Lab Results - Last 24 Hours (Table) 06/13/17 06/13/17 Range/Units 07:23 07:23 Neutrophils # 7.8 H (1.3-7.7) k/uL Carbon Dioxide 31 H (22-30) mmol/L BUN 29 H (9-20) mg/dL Calcium 8.1 L (8.4-10.2) mg/dL Assessment and Plan Plan: Assessment: #1. Acute kidney injury secondary to ATN secondary to sepsis and obstructive uropathy. 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 His urine eosinophils are positive at 10%. Creatinine peaked at 8.42 yesterday and is down to 1.04 today. Baseline creatinine is near 1. No evidence of hydronephrosis noted on renal ultrasound but does have hydronephrosis on CAT scan. Also rule out GN as he does have proteinuria on UA - so far serologies have been negative. #2. 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 #3. Metabolic acidosis secondary to acute kidney injury. Improved. #4. Nephrolithiasis, which is partially obstructing based on CAT scan, status post ureteral stent placement on June 09. #5. Bacteremia with blood culture positive for group B enterococcus. #6. Lower extremity edema. Improved. Plan: Hep-Lock IV fluids. Decrease prednisone to 10 mg daily (prednisone was initially started on June 08 at a dose of 60 mg daily) - will taper to 5 mg tomorrow and then discontinue completely. Continue with IV antibiotics - monitor vancomycin levels closely. Serologies negative. Avoid nephrotoxic agents and hypotensive episodes. Continue to monitor renal function and urine output closely. Repeat electrolytes in the morning. Stable to be discharged home from nephrology standpoint. He will need to follow -up as an outpatient in the next 1-2 weeks. Replace potassium. 40 mEq today.
[2017-06-14] MEDS ORDERED: predniSONE 5 MG TAB PO SCH (09:00)
== END 2017-06-13 11:25 | disposition home health service (06) | DRG 871 ==
LOC: EC 18:41 → 5MS5E 22:18
PROVIDERS: ADMIT Internal Medicine; ATTEND Internal Medicine
PROC: 0T768DZ Dilation of Right Ureter with Intraluminal Device, Via Natural or Artificial Opening Endoscopic (ICD-10-PCS; principal; 2017-06-09 07:30)
DX: A41.81 Sepsis due to Enterococcus (principal); N17.0 Acute kidney failure with tubular necrosis; E87.2 Acidosis; D69.6 Thrombocytopenia, unspecified; E86.0 Dehydration; R31.0 Gross hematuria; N13.6 Pyonephrosis; I10 Essential (primary) hypertension; I45.10 Unspecified right bundle-branch block; Z80.1 Family history of malignant neoplasm of trachea, bronchus and lung; Z80.3 Family history of malignant neoplasm of breast; Z82.0 Family history of epilepsy and other diseases of the nervous system; Z82.49 Family history of ischemic heart disease and other diseases of the circulatory system; Z85.528 Personal history of other malignant neoplasm of kidney; Z87.442 Personal history of urinary calculi; Z90.5 Acquired absence of kidney; Z79.82 Long term (current) use of aspirin
CPT/HCPCS: 36415; 70450; 71046; 74176; 76770; 80048; 80053; 80202; 80306; 81001; 82140; 82550; 82553; 83605; 83735; 84165; 84484; 85025; 85610; 85730; 86038; 86160; 86162; 86225; 86255; 86334; 86335; 87040; 87077; 87086; 87186; 87205; 93005; 94760; 96361; 96365; 96366; 96375; 99285

== ENCOUNTER → 2017-08-20 | Outpatient (CLI) | payer MEDICARE ==
[2017-08-20 16:45] LABS: Basophils % (A) 1 %; Eosinophils # (A) 0.4 k/uL (0-0.7); Eosinophils % (A) 7 %; HCT 43.5 % (39.0-53.0); HGB 14.6 gm/dL (13.0-17.5); Lymphocytes # (A) 1.3 k/uL (1.0-4.8); Lymphocytes % (A) 25 %; MCH 28.1 pg (25.0-35.0); MCHC 33.5 g/dL (31.0-37.0); Mean Platelet Volume 7.1; Monocytes # (A) 0.3 k/uL (0-1.0); Monocytes % (A) 6 %; Neutrophils # (A) 3.1 k/uL (1.3-7.7); Neutrophils % (A) 60 %; Platelet Count 147 k/uL (150-450); RBC 5.18 m/uL (4.30-5.90); RDW 14.4 % (11.5-15.5); WBC 5.1 k/uL (3.8-10.6)
[2017-08-20 17:06] LABS: Albumin 3.8 g/dL (3.5-5.0); Calcium 9.2 mg/dL (8.4-10.2); Total Bilirubin 0.5 mg/dL (0.2-1.3); Total Protein 6.3 g/dL (6.3-8.2)
== END | disposition home or self-care (01) ==
LOC: LABWHC1 15:52
PROVIDERS: ATTEND Urology
DX: Z01.818 Encounter for other preprocedural examination (principal); Z01.812 Encounter for preprocedural laboratory examination; N20.0 Calculus of kidney; R35.0 Frequency of micturition; R10.9 Unspecified abdominal pain; Z79.899 Other long term (current) drug therapy
CPT/HCPCS: 36415; 80053; 85025; 93005

== ENCOUNTER 2017-08-27 06:51 | Inpatient (IN) | payer MEDICARE ==
[2017-08-21 13:03] VITALS: BMI 22.9
[~2017-08-27 06:51] MED LIST: DEXAMETHASONE SOD PHOSPHATE 10 MG/ML 1 ML VIAL IV ONE; HYDROmorphone 0.5 MG/0.5 ML SYRINGE IVP PRN; LIDOCAINE 1% 20 ML VIAL (10MG/ML) FOR IV START INTRADERMA PRN; MIDAZOLAM 2 MG/2 ML VIAL IV PRN; ONDANSETRON 4 MG/2 ML VIAL IVP ONE; SCOPOLAMINE 1.5MG/72HR PATCH TRANSDERM ONE; cefTRIAXone IN SWFI 1,000 MG/10 ML SYRINGE IVP ONE
[2017-08-27] MEDS: LACTATED RINGERS 1,000 ML IV SCH (07:35)
[2017-08-27] MEDS ORDERED: PHENYLEPHRINE-0.9% NACL SYG 1 MG/10 ML SYRINGE ONE (08:01)
[2017-08-27] MEDS ORDERED: LIDOCAINE 1% INJ 10MG/ML (20 ML MDV) ONE (08:01)
[2017-08-27] MEDS ORDERED: GLYCOPYRROLATE 0.2 MG/ML 2 ML VIAL ONE (08:01)
[2017-08-27] MEDS ORDERED: fentaNYL (PF) 50 MCG/ML 2 ML AMP ONE (08:01)
[2017-08-27] MEDS ORDERED: SUCCINYLCHOLINE CHLORIDE 100 MG/5 ML SYR IV ONE (08:01)
[2017-08-27] MEDS ORDERED: PROPOFOL 10 MG/ML 20 ML VIAL IV ONE (08:01)
[2017-08-27] MEDS ORDERED: IOPAMIDOL-300 50ML BTL IV ONE (08:40)
[2017-08-27] MEDS ORDERED: ONDANSETRON 4 MG/2 ML VIAL IVP PRN (10:58)
[2017-08-27] MEDS ORDERED: MAG HYDROX/AL HYDROX/SIMETH 30 ML CUP PO PRN (10:58)
[2017-08-27] MEDS ORDERED: MORPHINE SULFATE 4 MG/ML SYRINGE IVP PRN (11:00)
--- NOTE | 2017-08-27 11:06 | P.OP ---
Date of Procedure: 08/27/17 Preoperative Diagnosis: Right renal calculi, large, solitary right kidney. Postoperative Diagnosis: Same Procedure(s) Performed: Cystoscopy, removal double-J catheter right, placement of occluding balloon catheter right, percutaneous nephrostomy 2 (Dr. Julian) percutaneous nephrostolithotomy at ultrasound, large cutaneous nephrostomy tube placement 2 Anesthesia: SAVANNAH Surgeon: Petey Calderon Estimated Blood Loss (ml): 300 Pathology: other (Stone) Condition: stable Disposition: PACU Indications for Procedure: The patient is an 87-year-old gentleman with a solitary right kidney who presented a few weeks ago with an obstructing 13 mm UPJ stone and renal failure. A double-J catheter was placed. Computed tomography scan performed he had multiple large stones greater than 2 cm probably 5-6 cm total in aggregate. After lengthy discussion with the son and the patient we decided to proceed with a percutaneous nephrostolithotomy Description of Procedure: The patient is brought to the operating suite. He is given a general endotracheal anesthesia on the transport gurney. He's placed in a frog position with care to airways and extremities. Cystoscopy of the Foroblique lens and 22-Czech sheath identifies no obstructing prostate. The bladder is entered. The double-J catheters identified and removed. I then placed an a 5- Czech occluding balloon catheter that goes up into the right kidney is secured to a 16-Czech Huff The patient placed in a prone position. Dr. Julian of radiology performed percutaneous access to the right lower pole calyx. This was dilated to 30- Czech. We're able to remove through the scope the UPJ stone. I then passed the ultrasonic probe and break the larger 2-2-1/2 cm renal pelvic stone. He also has a larger stone in the lower pole calyx its removed. I'm unable to access the upper pole calyx adequately. It is a bifid system. Dr. Julian reenters the procedure and performed percutaneous access to the right upper pole calyx making sure not to injure the lung. We fluoroscope the lung there does not appear to be any injury. We dilate the tract. We remove the upper pole stones using ultrasound and grasping technique. Remove the majority of the stone. By this point time is a fair amount of bleeding and edema that I'm unable to remove another upper pole calyceal stone as well as a lower pole calyceal stone. He Czech reentry nephrostomy tubes are placed over the wires so that I can do a second look nephroscopy. blood Loss is approximately 300 mL. The patient tolerated procedure well and will be placed in the hospital postoperatively.
[2017-08-27] MEDS: MORPHINE SULFATE 4 MG/ML SYRINGE IV PRN ×4 (11:25→11:49)
[2017-08-27] MEDS: fentaNYL (PF) 50 MCG/ML 2 ML AMP IVP ONE ×2 (12:03→12:20)
[2017-08-27] MEDS ORDERED: fentaNYL (PF) 50 MCG/ML 2 ML AMP IVP ONE (12:40)
--- NOTE | 2017-08-27 13:23 | P.NPCON ---
History of Present Illness - Reason for Consult chronic renal failure - History of Present Illness Reason for consultation: Chronic kidney disease History of present illness: Patient is a 87-year-old male seen in renal consultation for chronic kidney disease. 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 His basic creatinine is near 1. Patient underwent a left-sided nephrectomy due to renal cancer in the past. Patient has history of nephrolithiasis and presented to the hospital for cystoscopy and removal of double-J catheter on the right side. He underwent nephrostomy tube placement 2 earlier this morning. He is noted to have bloody drainage. He also has a Huff catheter in place. Patient's currently resting in bed. He only moans when asked a question. Hemodynamically stable. No vomiting or diarrhea. No labs available from today. He is currently maintained on half normal saline running at 100 mL an hour. I don't see any NSAIDs on his home medications. Vital signs are stable. General: The patient appeared well nourished and normally developed. HEENT: Head exam is unremarkable. Neck is without jugular venous distension. LUNGS: Lungs are clear to auscultation and percussion. Breath sounds decreased. HEART: Rate and Rhythm are regular. First and second heart sounds normal. No murmurs, rubs or gallops. ABDOMEN: Abdominal exam reveals normal bowel sounds. Non-tender and non- distended. No evidence of peritonitis. EXTREMITITES: No clubbing, cyanosis, or edema. Past Medical History Past Medical History: Cancer, Hypertension, Memory Impairment, Renal Disease Additional Past Medical History / Comment(s): kidney cancer only has 1 kidney, kidney stones in remaining kidney, past hx. high BP-no further meds for, mild memory impairment History of Any Multi-Drug Resistant Organisms: None Reported Past Surgical History: Tonsillectomy Additional Past Surgical History / Comment(s): nephrectomy Past Anesthesia/Blood Transfusion Reactions: No Reported Reaction Smoking Status: Never smoker - Past Family History Father Family Medical History: Cancer Medications and Allergies Home Medications Medication Instructions Recorded Confirmed Type Aspirin EC [Ecotrin] 325 mg PO DAILY 08/27/17 08/27/17 History Allergies Allergy/AdvReac Type Severity Reaction Status Date / Time No Known Allergies Allergy Verified 08/27/17 12:07 Physical Exam Vitals: Vital Signs Temp Pulse Resp BP Pulse Ox 05/16/18 12:56 91 16 132/76 95 08/27/17 12:41 98 16 134/77 98 08/27/17 12:26 77 16 143/75 96 08/27/17 12:11 79 16 145/79 99 08/27/17 11:56 76 14 138/76 99 08/27/17 11:41 82 16 163/77 99 08/27/17 11:26 83 16 168/75 99 08/27/17 11:11 97.7 F 89 16 142/77 96 08/27/17 07:19 97.1 F L 57 L 18 141/70 96 Intake and Output 08/26/17 08/27/17 08/27/17 22:59 06:59 14:59 Intake Total 1050 Output Total 800 Balance 250 Intake: IV 1050 Output: Urine 500 Estimated Blood Loss 300 Assessment and Plan Plan: Assessment: 1. 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 2. Status post left-sided nephrectomy with history of renal cancer. 3. Status post cystoscopy with nephrostomy tube placement 2 this morning. 4. Right-sided nephrolithiasis. Plan: Continue half-normal saline to be run at 100 mL an hour. Avoid nephrotoxic agents, including NSAIDs. Encourage oral intake. Monitor hemoglobin and check labs in the morning. Thank you for the consultation. I will continue to follow the patient with you during his hospital stay.
--- NOTE | 2017-08-27 13:24 | FL ---
EXAMINATION TYPE: FL Perc Nephrostomy New Access DATE OF EXAM: 08/27/2017 COMPARISON: NONE HISTORY: renal calculi. PROCEDURE: Maximal barrier technique was utilized. The skin overlying the right kidney was localized using fluo roscopy and the overlying skin prepped and draped. Lidocaine used for local anesthesia. Skin marlen w as made with a scalpel. Access was gained under fluoroscopy, following placement of a ureteral occlu oral balloon by the referring clinician and instillation of air in the renal collecting system with a 21-gauge needle to the kidney. A suitable posterior calyx of the lower pole was chosen. A 0.018 i nch wire was advanced. The access site was dilated and subsequently a sheath was advanced into the r enal pelvis following dilation with balloon along the tract. The patient underwent nephrolithotomy b y the referring clinician. Patient required a second access per the referring clinician. Suitable posterior upper pole calyx was chosen under fluoroscopy. Lidocaine used for local anesthesia. Skin marlen was made with a scalpel. Access was gained under flu oroscopy, following placement of a ureteral occlusion balloon by the referring clinician and instilla tion of air in the renal collecting system with a 21-gauge needle to the kidney. A suitable posterio r calyx was chosen. A 0.018 inch wire was advanced. The access site was dilated and subsequently a sheath was advanced into the renal pelvis following dilation with balloon along the tract. The patient remained in stable condition without complication. [facility] IMPRESSION: STATUS POST NEPHROSTOMY x 2, PLACEMENT FOR NEPHROLITHOTOMY WITH FLUOROSCOPIC GUIDANCE. THIS PROCEDUR E PERFORMED BY THE UNDERSIGNED.
[2017-08-27 15:13] LABS: Basophils % (A) 0 %; Eosinophils # (A) 0.1 k/uL (0-0.7); Eosinophils % (A) 1 %; HCT 44.2 % (39.0-53.0); HGB 14.3 gm/dL (13.0-17.5); Lymphocytes # (A) 0.6 k/uL (1.0-4.8); Lymphocytes % (A) 5 %; MCH 27.9 pg (25.0-35.0); MCHC 32.3 g/dL (31.0-37.0); MCV 86.3 fL (80.0-100.0); Monocytes # (A) 0.3 k/uL (0-1.0); Monocytes % (A) 2 %; Neutrophils # (A) 11.2 k/uL (1.3-7.7); Neutrophils % (A) 92 %; Platelet Count 134 k/uL (150-450); RBC 5.12 m/uL (4.30-5.90); RDW 14.8 % (11.5-15.5); WBC 12.2 k/uL (3.8-10.6)
[2017-08-28] MEDS: DEXTROSE 5%-0.45% NACL 1,000 ML IV SCH ×5 (04:56→17:15)
[2017-08-28] MEDS: ACETAMINOPHEN TAB 325 MG TAB PO PRN (05:34)
--- NOTE | 2017-08-28 06:45 | P.PN ---
Subjective Progress Note Date: 08/28/17 The patient is in his first day postop right percutaneous nephrostolithotomy and a solitary kidney with a large volume of kidney stone. He did well overnight. Most of the urine is coming out of the nephrostomy tubes. The urine is clearing. He is not having pain. I will remove his Huff and ambulate the patient. I've tentatively scheduled him for a secondary nephroscopy with nephrostolithotomy next week as there are a few more stones that I would like to removed. This is been discussed with the patient. Objective - Vital Signs Vital signs: Vital Signs Temp 97.6 F 08/27/17 23:05 Pulse 86 08/27/17 23:05 Resp 16 08/27/17 23:05 BP 149/75 08/27/17 23:05 Pulse Ox 95 08/27/17 23:05 Intake & Output 08/27/17 08/27/17 08/28/17 06:59 18:59 06:59 Intake Total 1050 590 Output Total 1200 950 Balance -150 -360 Weight 72.575 kg Intake: IV 1050 Oral 590 Output: Drainage 400 900 Right Back 200 300 Right Lateral Back 200 600 Urine 500 50 Estimated Blood Loss 300 Other: Voiding Method Indwelling Catheter - Labs CBC & Chem 7: 08/27/17 13:05 Labs: Abnormal Lab Results - Last 24 Hours (Table) 08/27/17 Range/Units 13:05 WBC 12.2 H (3.8-10.6) k/uL Plt Count 134 L (150-450) k/uL Neutrophils # 11.2 H (1.3-7.7) k/uL Lymphocytes # 0.6 L (1.0-4.8) k/uL
[2017-08-28 07:43] LABS: Calcium 8.5 mg/dL (8.4-10.2); Magnesium 1.8 mg/dL (1.6-2.3); Potassium 4.1 mmol/L (3.5-5.1)
[2017-08-28] MEDS: LACTATED RINGERS 1,000 ML IV SCH (10:21)
--- NOTE | 2017-08-28 12:20 | P.PN ---
Subjective Patient is seen in follow-up for chronic kidney disease. 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 Patient underwent left nephrectomy several years ago due to renal cancer. He underwent cystoscopy with nephrostomy tube placement on August 27 for right-sided nephrolithiasis. He is currently resting in bed. Oral intake is good. Admits to good urine output. No active complaints at this time. Vital signs are stable. General: The patient appeared well nourished and normally developed. HEENT: Head exam is unremarkable. Neck is without jugular venous distension. LUNGS: Lungs are clear to auscultation and percussion. Breath sounds decreased. HEART: Rate and Rhythm are regular. First and second heart sounds normal. No murmurs, rubs or gallops. ABDOMEN: Abdominal exam reveals normal bowel sounds. Non-tender and non- distended. No evidence of peritonitis. Drains noted. EXTREMITITES: No clubbing, cyanosis, or edema. Objective - Vital Signs Vital signs: Vital Signs Temp 98.3 F 08/28/17 07:00 Pulse 70 08/28/17 07:00 Resp 14 08/28/17 07:00 BP 135/66 08/28/17 07:00 Pulse Ox 97 08/28/17 07:00 Intake & Output 08/27/17 08/28/17 08/28/17 18:59 06:59 18:59 Intake Total 1050 590 Output Total 1200 950 650 Balance -150 -360 -650 Weight 72.575 kg Intake: IV 1050 Oral 590 Output: Drainage 400 900 600 Right Back 200 300 300 Right Lateral Back 200 600 300 Urine 500 50 50 2-way Urethral 50 Estimated Blood Loss 300 Other: Voiding Method Indwelling Catheter - Labs CBC & Chem 7: 08/27/17 13:05 08/28/17 06:45 Labs: Abnormal Lab Results - Last 24 Hours (Table) 08/27/17 08/28/17 Range/Units 13:05 06:45 WBC 12.2 H (3.8-10.6) k/uL Plt Count 134 L (150-450) k/uL Neutrophils # 11.2 H (1.3-7.7) k/uL Lymphocytes # 0.6 L (1.0-4.8) k/uL BUN 25 H (9-20) mg/dL Glucose 128 H (74-99) mg/dL Assessment and Plan Plan: Assessment: 1. 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 2. Status post left-sided nephrectomy with history of renal cancer. 3. Status post cystoscopy with nephrostomy tube placement 2 this morning. 4. Right-sided nephrolithiasis. Plan: Continue half-normal saline to be run at 70 mL an hour. Avoid nephrotoxic agents, including NSAIDs. Encourage oral intake.
[2017-08-28] MEDS ORDERED: MORPHINE ORAL SOLN 10 MG/5 ML CUP PO PRN (15:10)
[2017-08-28] MEDS ORDERED: LORazepam 1 MG TAB PO STA (23:18)
[2017-08-29] MEDS ORDERED: HALOPERIDOL LACTATE 5 MG/ML 1 ML VIAL IM PRN
--- NOTE | 2017-08-29 07:11 | P.DS ---
Providers Date of admission: 08/27/17 06:51 Attending physician: Petey Calderon Consults: 08/29/17 00:51 Consult Physician Routine Consulting Provider: Parvez Kennedy Consult Reason/Comments: Medical management Do you want consulting provider notified?: Yes Primary care physician: Parvez Kennedy Hospital Course: Patient was admitted 08/27/2017 for a right percutaneous nephrostolithotomy. He has a solitary kidney. He had an obstructing ureteral stone and renal failure as well as multiple other stones. He underwent removal of a double-J catheter percutaneous nephrostolithotomy using 2 tubes. Postoperatively his diet was advanced. His urine is clearing. He had some confusion on the night of 2017 as expected. The patient does have Alzheimer's. He is to be transferred back to the [facility] facility. He will go for nephrostomy tubes. He'll follow-up in the hospital next week on Friday for a secondary nephrostolithotomy. understands this. The patient is comfortable office at this point in time. He'll resume his home medication. A prescription of Tylenol with codeine was given. His condition is good. Patient Condition at Discharge: Good Plan - Discharge Summary Discharge Rx Participant: No New Discharge Prescriptions: New Acetaminophen with Codeine [Tylenol w/codeine #3] 1 tab PO Q6H PRN 3 Days # 12 tab PRN Reason: Pain Control No Action Aspirin EC [Ecotrin] 325 mg PO DAILY Discharge Medication List Aspirin EC [Ecotrin] 325 mg PO DAILY 08/27/17 [History] Acetaminophen with Codeine [Tylenol w/codeine #3] 1 tab PO Q6H PRN 3 Days #12 tab 08/29/17 [Rx] Follow up Appointment(s)/Referral(s): [facility], [NON-STAFF] - Activity/Diet/Wound Care/Special Instructions: Discharge back to [facility]. Discharged home with the nephrostomy tubes. I have made arrangements for a secondary percutaneous nephrostolithotomy next Friday. Nothing by mouth after midnight Friday. Family should contact my office Friday for further instructions Discharge Disposition: HOME WITH HOME HEALTH SERVICES
[2017-08-29 08:04] LABS: Calcium 8.3 mg/dL (8.4-10.2)
[2017-08-29 08:37] VITALS: BP 121/69; PULSE 91; RESP 14; TEMP 98.2
[2017-08-29] MEDS: DEXTROSE 5%-0.45% NACL 1,000 ML IV SCH (08:38)
[2017-08-29] MEDS: LACTATED RINGERS 1,000 ML IV SCH (08:38)
[2017-08-29] MEDS: ACETAMINOPHEN TAB 325 MG TAB PO PRN (12:14)
--- NOTE | 2017-08-29 12:45 | P.PN ---
Subjective Patient is seen in follow-up for chronic kidney disease. 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 Patient underwent left nephrectomy several years ago due to renal cancer. He underwent cystoscopy with nephrostomy tube placement on August 27 for right-sided nephrolithiasis. He is currently resting in bed. Oral intake is good. Admits to good urine output. Feels weak. Vital signs are stable. General: The patient appeared well nourished and normally developed. HEENT: Head exam is unremarkable. Neck is without jugular venous distension. LUNGS: Lungs are clear to auscultation and percussion. Breath sounds decreased. HEART: Rate and Rhythm are regular. First and second heart sounds normal. No murmurs, rubs or gallops. ABDOMEN: Abdominal exam reveals normal bowel sounds. Non-tender and non- distended. No evidence of peritonitis. Drains noted. EXTREMITITES: No clubbing, cyanosis, or edema. Objective - Vital Signs Vital signs: Vital Signs Temp 98.2 F 08/29/17 07:00 Pulse 91 08/29/17 07:00 Resp 14 08/29/17 07:00 BP 121/69 08/29/17 07:00 Pulse Ox 97 08/29/17 07:00 Intake & Output 08/28/17 08/29/17 08/29/17 18:59 06:59 18:59 Intake Total 560 350 Output Total 1000 1150 Balance -440 -800 Intake: Intake, IV Titration 560 Amount Dextrose 5%-0.45% NaCl 1, 560 000 ml @ 70 mls/hr IV . [id number] [facility] Rx#:[id number] Oral 350 Output: Drainage 900 1050 Right Back 400 400 Right Lateral Back 500 650 Urine 100 100 2-way Urethral 50 Other: Voiding Method Toilet Toilet Toilet Urinal Urinal Urinal # Voids 2 - Labs CBC & Chem 7: 08/27/17 13:05 08/29/17 07:15 Labs: Abnormal Lab Results - Last 24 Hours (Table) 08/29/17 Range/Units 07:15 Glucose 103 H (74-99) mg/dL Calcium 8.3 L (8.4-10.2) mg/dL Assessment and Plan Plan: Assessment: 1. 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 2. Status post left-sided nephrectomy with history of renal cancer. 3. Status post cystoscopy with nephrostomy tube placement 2 this morning. 4. Right-sided nephrolithiasis. Plan: Hep-Lock IV fluids. Avoid nephrotoxic agents, including NSAIDs. Encourage oral intake. He will need to follow-up with urology as outpatient. He will also need to follow-up in CKD clinic in the next 2 weeks.
== END 2017-08-29 14:10 | disposition home health service (06) | DRG 661 ==
LOC: 2ORMAIN 06:51 → 3SUR 11:24
PROVIDERS: ADMIT Urology; ATTEND Urology
PROC: 0T933ZZ Drainage of Right Kidney Pelvis, Percutaneous Approach (ICD-10-PCS; 2017-08-27)
PROC: 0T768ZZ Dilation of Right Ureter, Via Natural or Artificial Opening Endoscopic (ICD-10-PCS; principal; 2017-08-27 08:00)
PROC: 0TC68ZZ Extirpation of Matter from Right Ureter, Via Natural or Artificial Opening Endoscopic (ICD-10-PCS; principal; 2017-08-27 08:00)
PROC: 0TC08ZZ Extirpation of Matter from Right Kidney, Via Natural or Artificial Opening Endoscopic (ICD-10-PCS; principal; 2017-08-27 08:00)
PROC: 0TPB8DZ Removal of Intraluminal Device from Bladder, Via Natural or Artificial Opening Endoscopic (ICD-10-PCS; principal; 2017-08-27 08:00)
DX: N20.2 Calculus of kidney with calculus of ureter (principal); Z85.528 Personal history of other malignant neoplasm of kidney; Z79.82 Long term (current) use of aspirin; I12.9 Hypertensive chronic kidney disease with stage 1 through stage 4 chronic kidney disease, or unspecified chronic kidney disease; N18.3 Chronic kidney disease, stage 3 (moderate); F02.80 Dementia in other diseases classified elsewhere, unspecified severity, without behavioral disturbance, psychotic disturbance, mood disturbance, and anxiety; G30.9 Alzheimer's disease, unspecified; Z87.442 Personal history of urinary calculi; Z90.5 Acquired absence of kidney
CPT/HCPCS: 50432; 80048; 82365; 83735; 85025; 86850; 86900; 86901; 94760

== ENCOUNTER 2017-09-02 18:47 | Inpatient (IN) | payer MEDICARE ==
[2017-09-02] MEDS ORDERED: SODIUM CHLORIDE 0.9% 1,000 ML IV STA ×2 (19:06→19:45)
--- NOTE | 2017-09-02 19:15 | ED ---
General Adult HPI <Andi Thomason - Last Filed: 09/02/17 21:15> - General Source: EMS, RN notes reviewed Mode of arrival: EMS Limitations: physical limitation <Uriel Vallejo - Last Filed: 09/02/17 22:14> - General Chief complaint: Urogenital Stated complaint: Infection Time Seen by Provider: 09/02/17 18:53 - History of Present Illness Initial comments: Patient 87-year-old male significant past medical history for renal cancer and left-sided nephrectomy, presented to the emergency room today by EMS with a chief complaint of right-sided flank. Patient is status post 6 days approximately 2 placement on the right. Patient brought in by EMS from detention stating he is more lethargic today. Currently denies any pain or symptoms at this time. States feels "fair". Patient denies any fever. Denies any nausea vomiting. Denies any abdominal pain, chest pain. (Uriel Vallejo) - Related Data Home Medications Medication Instructions Recorded Confirmed Aspirin EC [Ecotrin] 325 mg PO DAILY 08/27/17 09/02/17 Previous Rx's Medication Instructions Recorded Acetaminophen with Codeine 1 tab PO Q6H PRN 3 Days #12 tab 08/29/17 [Tylenol w/codeine #3] Allergies Allergy/AdvReac Type Severity Reaction Status Date / Time No Known Allergies Allergy Verified 09/02/17 19:06 Review of Systems ROS Other: All systems not noted in ROS Statement are negative. <Andi Thomason - Last Filed: 09/02/17 21:15> ROS Other: All systems not noted in ROS Statement are negative. <Uriel Vallejo - Last Filed: 09/02/17 22:14> ROS Statement: Those systems with pertinent positive or pertinent negative responses have been documented in the HPI. 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 History of Any Multi-Drug Resistant Organisms: None Reported Past Surgical History: Tonsillectomy Additional Past Surgical History / Comment(s): nephrectomy, percutaneous nephrostolithotomy 08-27-17 Past Anesthesia/Blood Transfusion Reactions: No Reported Reaction Past Psychological History: No Psychological Hx Reported Smoking Status: Never smoker - Past Family History Father Family Medical History: Cancer <Uriel Vallejo - Last Filed: 09/02/17 22:14> General Exam <Andi Thomason - Last Filed: 09/02/17 21:15> Limitations: physical limitation <Uriel Vallejo - Last Filed: 09/02/17 22:14> - General Exam Comments Initial Comments: General: The patient is awake and alert, in no distress, and does not appear acutely ill. Eye: Pupils are equal, round and reactive to light, extra-ocular movements are intact. No nystagmus. There is normal conjunctiva bilaterally. No signs of icterus. Ears, nose, mouth and throat: There are moist mucous membranes and no oral lesions. Neck: The neck is supple, there is no tenderness or JVD. Cardiovascular: There is a regular rate and rhythm. No murmur, rub or gallop is appreciated. Respiratory: Lungs are clear to auscultation, respirations are non-labored, breath sounds are equal. No wheezes, stridor, rales, or rhonchi. Gastrointestinal: Soft, non-distended, non-tender abdomen without masses or organomegaly noted. There is no rebound or guarding present. No CVA tenderness. Musculoskeletal: Normal ROM, no tenderness. Strength 5/5. Sensation intact. Pulses equal bilaterally 2+. Neurological: A&O x 3. CN II-XII intact, There are no obvious motor or sensory deficits. Coordination appears grossly intact. Speech is normal. Skin: Skin is warm and dry and no rashes or lesions are noted. Psychiatric: Cooperative, appropriate mood & affect, normal judgment. (Uirel Vallejo) Vital Signs 09/02/17 09/02/17 09/02/17 18:54 19:35 20:05 Temperature 99 F 100.2 F H 97.6 F Pulse Rate 90 92 77 Respiratory 18 15 19 Rate Blood Pressure 157/75 138/72 O2 Sat by Pulse 94 L 95 96 Oximetry 09/02/17 21:00 Temperature 99.1 F Pulse Rate 85 Respiratory 16 Rate Blood Pressure 151/65 O2 Sat by Pulse 96 Oximetry Medical Decision Making - Lab Data Result diagrams: 09/02/17 19:13 09/02/17 19:13 <Andi Thomason - Last Filed: 09/02/17 21:15> - Lab Data Result diagrams: 09/02/17 19:13 09/02/17 19:13 <Uriel Vallejo - Last Filed: 09/02/17 22:14> - Medical Decision Making Case discussed with Dr. Calderon, will admit the patient, continue IV antibiotics, urine culture and blood cultures pending. Urology recommends admission to internal medicine, Dr. Kennedy will accept admission. (Andi Thomason) - Lab Data Lab Results 09/02/17 09/02/17 09/02/17 Range/Units 19:13 19:13 19:13 WBC 14.1 H (3.8-10.6) k/uL RBC 4.36 (4.30-5.90) m/uL Hgb 12.3 L (13.0-17.5) gm/dL Hct 36.3 L (39.0-53.0) % MCV 83.4 (80.0-100.0) fL MCH 28.3 (25.0-35.0) pg MCHC 33.9 (31.0-37.0) g/dL RDW 14.3 (11.5-15.5) % Plt Count 195 (150-450) k/uL Neutrophils % 90 % Lymphocytes % 5 % Monocytes % 5 % Eosinophils % 1 % Basophils % 0 % Neutrophils # 12.6 H (1.3-7.7) k/uL Lymphocytes # 0.7 L (1.0-4.8) k/uL Monocytes # 0.7 (0-1.0) k/uL Eosinophils # 0.1 (0-0.7) k/uL Basophils # 0.0 (0-0.2) k/uL PT (9.0-12.0) sec INR (<1.2) APTT (22.0-30.0) sec Sodium 138 (137-145) mmol/L Potassium 4.1 (3.5-5.1) mmol/L Chloride 101 (98-107) mmol/L Carbon Dioxide 25 (22-30) mmol/L Anion Gap 12 mmol/L BUN 17 (9-20) mg/dL Creatinine 1.00 (0.66-1.25) mg/dL Est GFR (CKD-EPI)AfAm 78 (>60 ml/min/1.73 sqM) Est GFR (CKD-EPI)NonAf 67 (>60 ml/min/1.73 sqM) Glucose 110 H (74-99) mg/dL Plasma Lactic Acid Hari 0.7 (0.7-2.0) mmol/L Calcium 8.9 (8.4-10.2) mg/dL Total Bilirubin 1.1 (0.2-1.3) mg/dL AST 20 (17-59) U/L ALT 25 (21-72) U/L Alkaline Phosphatase 57 (38-126) U/L Total Creatine Kinase (55-170) U/L CK-MB (CK-2) (0.0-2.4) ng/mL CK-MB (CK-2) Rel Index Troponin I (0.000-0.034) ng/mL Total Protein 5.5 L (6.3-8.2) g/dL Albumin 3.2 L (3.5-5.0) g/dL Urine Color Urine Appearance (Clear) Urine pH (5.0-8.0) Ur Specific [place] (1.001-1.035) Urine Protein (Negative) Urine Glucose (UA) (Negative) Urine Ketones (Negative) Urine Blood (Negative) Urine Nitrite (Negative) Urine Bilirubin (Negative) Urine Urobilinogen (<2.0) mg/dL Ur Leukocyte Esterase (Negative) Urine RBC (0-5) /hpf Urine WBC (0-5) /hpf Urine Bacteria (None) /hpf 09/02/17 09/02/17 09/02/17 Range/Units 19:13 19:13 19:13 WBC (3.8-10.6) k/uL RBC (4.30-5.90) m/uL Hgb (13.0-17.5) gm/dL Hct (39.0-53.0) % MCV (80.0-100.0) fL MCH (25.0-35.0) pg MCHC (31.0-37.0) g/dL RDW (11.5-15.5) % Plt Count (150-450) k/uL Neutrophils % % Lymphocytes % % Monocytes % % Eosinophils % % Basophils % % Neutrophils # (1.3-7.7) k/uL Lymphocytes # (1.0-4.8) k/uL Monocytes # (0-1.0) k/uL Eosinophils # (0-0.7) k/uL Basophils # (0-0.2) k/uL PT 10.0 (9.0-12.0) sec INR 1.0 (<1.2) APTT 23.6 (22.0-30.0) sec Sodium (137-145) mmol/L Potassium (3.5-5.1) mmol/L Chloride (98-107) mmol/L Carbon Dioxide (22-30) mmol/L Anion Gap mmol/L BUN (9-20) mg/dL Creatinine (0.66-1.25) mg/dL Est GFR (CKD-EPI)AfAm (>60 ml/min/1.73 sqM) Est GFR (CKD-EPI)NonAf (>60 ml/min/1.73 sqM) Glucose (74-99) mg/dL Plasma Lactic Acid Hari (0.7-2.0) mmol/L Calcium (8.4-10.2) mg/dL Total Bilirubin (0.2-1.3) mg/dL AST (17-59) U/L ALT (21-72) U/L Alkaline Phosphatase (38-126) U/L Total Creatine Kinase <20 L (55-170) U/L CK-MB (CK-2) <0.2 (0.0-2.4) ng/mL CK-MB (CK-2) Rel Index Troponin I 0.017 (0.000-0.034) ng/mL Total Protein (6.3-8.2) g/dL Albumin (3.5-5.0) g/dL Urine Color Red Urine Appearance Turbid (Clear) Urine pH 6.5 (5.0-8.0) Ur Specific [place] 1.016 (1.001-1.035) Urine Protein 2+ H (Negative) Urine Glucose (UA) Negative (Negative) Urine Ketones 2+ H (Negative) Urine Blood Large H (Negative) Urine Nitrite Negative (Negative) Urine Bilirubin Negative (Negative) Urine Urobilinogen <2.0 (<2.0) mg/dL Ur Leukocyte Esterase Large H (Negative) Urine RBC >182 H (0-5) /hpf Urine WBC >182 H (0-5) /hpf Urine Bacteria Rare H (None) /hpf Disposition <Helmreich,Andi N - Last Filed: 09/02/17 21:15> Is patient prescribed a controlled substance at d/c from ED?: No <Uriel Vallejo - Last Filed: 09/02/17 22:14> Clinical Impression: UTI (urinary tract infection) Disposition: ADMITTED IP TO THIS HOSP Condition: Stable Referrals: Parvez Kennedy MD [Primary Care Provider] - 1-2 days
[2017-09-02 19:34] LABS: Basophils % (A) 0 %; Eosinophils # (A) 0.1 k/uL (0-0.7); Eosinophils % (A) 1 %; HCT 36.3 % (39.0-53.0); HGB 12.3 gm/dL (13.0-17.5); Lymphocytes # (A) 0.7 k/uL (1.0-4.8); Lymphocytes % (A) 5 %; MCH 28.3 pg (25.0-35.0); MCHC 33.9 g/dL (31.0-37.0); MCV 83.4 fL (80.0-100.0); Monocytes # (A) 0.7 k/uL (0-1.0); Monocytes % (A) 5 %; Neutrophils # (A) 12.6 k/uL (1.3-7.7); Neutrophils % (A) 90 %; Platelet Count 195 k/uL (150-450); RBC 4.36 m/uL (4.30-5.90); RDW 14.3 % (11.5-15.5); WBC 14.1 k/uL (3.8-10.6)
[2017-09-02 19:37] LABS: Appearance,Urine Turbid (Clear); Bacteria,Urine Rare /hpf; Bilirubin,Urine Negative (Negative); Blood,Urine Large (Negative); Color,Urine Red; Glucose,Urine (UA) Negative (Negative); Ketones,Urine 2+ (Negative); Leukocyte Esterase,Urine Large (Negative); Nitrite,Urine Negative (Negative); PH, Urine 6.5 (5.0-8.0); Protein,Urine 2+ (Negative); RBC,Urine >182 /hpf (0-5); Specific Gravity,Urine 1.016 (1.001-1.035); Urobilinogen,Urine <2.0 mg/dL (<2.0); WBC,Urine >182 /hpf (0-5)
[2017-09-02 19:40] LABS: Partial Thromboplastin Time 23.6 sec (22.0-30.0)
[2017-09-02] MEDS ORDERED: ACETAMINOPHEN TAB 500 MG TAB PO STA (19:44)
[2017-09-02 19:47] LABS: Albumin 3.2 g/dL (3.5-5.0); Calcium 8.9 mg/dL (8.4-10.2); Potassium 4.1 mmol/L (3.5-5.1); Total Bilirubin 1.1 mg/dL (0.2-1.3); Total Protein 5.5 g/dL (6.3-8.2)
[2017-09-02 19:49] LABS: Creatine Kinase <20 U/L (55-170)
[2017-09-02] MEDS ORDERED: cefTRIAXone IN SWFI 1,000 MG/10 ML SYRINGE IVP STA (19:54)
[2017-09-02 20:01] LABS: Creatine Kinase MB <0.2 ng/mL (0.0-2.4); Troponin I 0.017 ng/mL (0.000-0.034)
--- NOTE | 2017-09-02 20:03 | XR ---
EXAMINATION TYPE: XR chest 2V DATE OF EXAM: 09/02/2017 COMPARISON: 06/05/2017 HISTORY: Right-sided abdominal pain TECHNIQUE: Frontal and lateral views of the chest are obtained. FINDINGS: Heart is normal. There is no heart failure. There is some blunting of left costophrenic an gle. Thoracic aorta is atheromatous. Bony thorax is intact. IMPRESSION: There is increasing left pleural effusion compared to old exam. No heart failure.
--- NOTE | 2017-09-02 20:06 | XR ---
EXAMINATION TYPE: XR KUB DATE OF EXAM: 09/02/2017 COMPARISON: 08/02/2012 HISTORY: Nephrostomy tubes placed. Right-sided abdominal pain TECHNIQUE: 2 views FINDINGS: There are numerous surgical clips in the left paraspinal region of the mid abdomen. There i s apparent double right side nephrostomy tube. There is no sign of intestinal obstruction or pneumope ritoneum. Fecal pattern is normal. Tip of one of the tubes is probably in the right lower ureter. The other tube is looped on itself over the right mid abdomen. There are multiple calcifications over th e right kidney to measure up to 1.5 cm. IMPRESSION: There is decrease in the numerous right renal calcifications compared to old exam. No joseph e air. Small left pleural effusion noted.
--- NOTE | 2017-09-02 20:22 | CT ---
EXAMINATION TYPE: CT abdomen pelvis wo con DATE OF EXAM: 09/02/2017 COMPARISON: NONE HISTORY: abdominal pain, hx of renal disease and stones CT DLP: 368.4 mGycm Automated exposure control for dose reduction was used. TECHNIQUE: Helical acquisition of images was performed from the lung bases through the pelvis. FINDINGS: There are bilateral pleural effusions with basilar pulmonary infiltrates and atelectasis. Liver shows no focal defect. Gallbladder appears normal. Spleen appears normal. There is no pancreati c mass. There are numerous surgical clips apparently from left nephrectomy. There are 2 right side ne phrostomy tubes. One of the tubes appears to be extending down to the lower right ureter. A second tu be is looped on itself and appears to be passing through the wall of the ureter into the posterior pa rarenal space. There is no hydronephrosis. There are multiple right renal calculi. There is no sign o f free air. There is no ascites. I see no intestinal obstruction. There is a small amount of air in t he urinary bladder. Prostate is enlarged. Prostate measures 5 cm. IMPRESSION: THE RIGHT RENAL CALCULI ARE REDUCED IN NUMBER COMPARED TO PREVIOUS CT SCAN. ONE OF THE NEPHROSTOMY TU BE CATHETER TIPS IS MALPOSITIONED OUTSIDE OF THE RIGHT URETER. PLEURAL EFFUSIONS AND BASILAR PULMONARY INFILTRATES AND ATELECTASIS IS IMPROVED COMPARED TO OLD EXAM.
[2017-09-02] MEDS ORDERED: NALOXONE 0.4 MG/ML 1 ML VIAL IV PRN (21:16)
[2017-09-02] MEDS ORDERED: HYDROcodone/APAP 5-325MG 1 EACH TAB PO PRN (21:16)
[2017-09-02] MEDS ORDERED: ONDANSETRON 4 MG/2 ML VIAL IVP PRN (21:16)
[2017-09-02] MEDS ORDERED: ACETAMINOPHEN TAB 325 MG TAB PO PRN (21:16)
[2017-09-03] MEDS ORDERED: GENTAMICIN 120 MG in SODIUM CHLORIDE 0.9% 100 ML IVPB NR (05:00)
[2017-09-03] MEDS ORDERED: AMPICILLIN 1,000 MG in SODIUM CHLORIDE 0.9% 50 ML IVPB ONE (05:00)
[2017-09-03] MEDS: SODIUM CHLORIDE 0.9% 1,000 ML IV SCH ×2 (05:37→20:05)
--- NOTE | 2017-09-03 08:16 | HP ---
HISTORY AND PHYSICAL CHIEF COMPLAINT: Lethargy. HISTORY OF PRESENT ILLNESS: This 87-year-old gentleman was brought in from his place of residence at [facility] because of some lethargy. The patient had recently been in the hospital under the urology services when they had put a nephrostomy tube on his right kidney because of retained kidney stones. The patient has had a previous left nephrectomy. The surgery was on 08/27/2017. The patient had been discharged from the hospital on 08/29/2017. The patient this morning at the time of evaluation is doing fairly well. He had a temperature 100.2 in the emergency room with elevated white count and urine with numerous WBCs. The patient otherwise seems to be his usual status in no distress. The patient is awake and alert, oriented. The patient has had history of nephrolithiasis and a previous left nephrectomy for renal cell carcinoma. The patient's renal function has been fairly adequate. PAST MEDICAL HISTORY: Significant for bacteremia and urinary tract infections. The patient noted to have kidney stones. Also history of renal cell carcinoma, for which he had a left nephrectomy. The patient has no history of lung disease, liver disease, thyroid condition, ulcers, TB, hepatitis, rheumatic fever, myocardial infarction or CVA. PAST SURGICAL HISTORY: Significant for tonsillectomy, circumcision, vasectomy, and the recent nephrostomy tubes. PERSONAL HISTORY: One drink about 3 or 4 times a week. ALLERGIES: None known. MEDICATIONS: Medications at present has been: 1. Aspirin one a day. 2. Tylenol with codeine one p.r.n. q.i.d. VACCINATION HISTORY: Pneumovax back in 01/17/2015 and he gets annual flu shot. SOCIAL HISTORY: Patient is , single, lives in a nursing facility. He has a brother who is here during the [place] with him and his children. FAMILY MEDICAL HISTORY: Father at the age of 72 with CA of the lung, he had coronary artery disease as well. Mother at the age of 91. She had history of Parkinson's, ASHD. A brother 86 years of age with a history of coronary artery disease. Sister in her 50s of carcinoma of the breast. The patient has one daughter and 3 sons in adequate health. REVIEW OF SYSTEMS: NEURO: Denies any headaches, dizziness. No double vision, blurred vision. PSYCH: No anxiety, depression, cooperative. Occasional confusion. CARDIAC: Denies chest pain, angina, palpitations. RESPIRATORY: Denies shortness of breath, cough, hemoptysis. GI: No nausea, vomiting, abdominal pain, diarrhea. Some constipation. : No symptoms of dysuria or hematuria. Has a nephrostomy tube draining. Has got 2 tubes there. EXTREMITIES: Denies pain, edema. CONSTITUTIONAL: Low-grade fever. No chills. SKIN: No rash. PHYSICAL EXAMINATION: Pleasant gentleman present in no distress. Vital signs as mentioned above. Temperature was 100.2 in the emergency room axillary with pulse of 92, respirations 15, blood pressure 138/72, pulse ox 95% on room air. HEENT: Normocephalic. Neck is supple. Pupils are reactive. Oral cavity is dry. Ears reveal no drainage. Neck reveals no JVD, carotid bruits or thyromegaly. Chest examination is clear to auscultation and percussion. CARDIAC: Normal S1, S2 with no gallops, murmurs. ABDOMEN: Soft. Bowel sounds present. The patient has nephrostomy tubes on the right side. Extremities reveal no edema. No tenderness. NEUROLOGICALLY: Awake, alert, oriented with well-coordinated movements. LABORATORY ASSESSMENT: White count 14.1, hemoglobin 12.3. Patient with left shift. PT, PTT normal. Electrolytes normal. BUN 17, creatinine 1.0. Random glucose 110. CPK less than 20. Albumin 3.2. Urine had 2+ protein, negative nitrate, more than 182 WBCs and more than 182 RBCs. ASSESSMENT: 1. Urinary tract infection complicated by nephrostomy tubes. 2. Nephrostomy tubes right kidney. 3. History of nephrolithiasis. 4. Status post left nephrectomy for carcinoma of the kidney. 5. Mild decreased nutritional status. PLAN: The patient has been started on IV antibiotic. I believe the urologist was contacted from the emergency room and were told that they plan to do some surgical procedure on him today. Will await further evaluation. Meanwhile, continue antibiotic. Prognosis guarded. MMODL / IJN: [id number] /
[2017-09-03 09:32] VITALS: BMI 24.3
[2017-09-03 09:44] LABS: Basophils % (A) 0 %; Eosinophils # (A) 0.1 k/uL (0-0.7); Eosinophils % (A) 0 %; HGB 11.3 gm/dL (13.0-17.5); Lymphocytes # (A) 0.8 k/uL (1.0-4.8); Lymphocytes % (A) 6 %; MCH 28.1 pg (25.0-35.0); MCHC 33.2 g/dL (31.0-37.0); MCV 84.6 fL (80.0-100.0); Monocytes # (A) 0.6 k/uL (0-1.0); Monocytes % (A) 5 %; Neutrophils # (A) 11.4 k/uL (1.3-7.7); Neutrophils % (A) 88 %; Platelet Count 172 k/uL (150-450); RBC 4.01 m/uL (4.30-5.90); RDW 14.3 % (11.5-15.5)
[2017-09-03 09:53] LABS: Albumin 2.8 g/dL (3.5-5.0); Calcium 8.2 mg/dL (8.4-10.2); Total Protein 4.9 g/dL (6.3-8.2)
--- NOTE | 2017-09-03 14:38 | P.GSCN ---
History of Present Illness Consult date: 09/03/17 History of present illness: The patient is an 87-year-old gentleman with mild Alzheimer's who has a solitary right kidney with multiple kidney stones. A left radical nephrectomy years ago for cancer. He presented several weeks ago and renal failure due to obstruction from stones. Last week a percutaneous nephrostolithotomy was done and remove the bulk of the stone but there were 3 minute remaining stones. I elected to do a secondary percutaneous nephrostolithotomy scheduled for today. He has 2 remaining nephrostomy tubes. He presented emergency room last night with what appears to be a urinary tract infection with sepsis. In that light the surgery will be canceled. We'll treat the infection and a later date to the secondary nephrostolithotomy. Review of Systems ROS unobtainable: due to mental status - Constitutional Reports fever, Reports lethargy Past Medical History Past Medical History: Cancer, Hypertension, Renal Disease Additional Past Medical History / Comment(s): kidney cancer only has 1 kidney, kidney stones in remaining kidney, past hx. 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 History of Any Multi-Drug Resistant Organisms: None Reported Past Surgical History: Tonsillectomy Additional Past Surgical History / Comment(s): nephrectomy, percutaneous nephrostolithotomy 08-27-17 Past Anesthesia/Blood Transfusion Reactions: No Reported Reaction Past Psychological History: No Psychological Hx Reported Smoking Status: Never smoker Past Alcohol Use History: None Reported Past Drug Use History: None Reported - Past Family History Father Family Medical History: Cancer Medications and Allergies Home Medications Medication Instructions Recorded Confirmed Type Aspirin EC [Ecotrin] 325 mg PO DAILY 08/27/17 09/02/17 History Acetaminophen with Codeine 1 tab PO Q6H PRN 3 Days #12 tab 08/29/17 09/02/17 Rx [Tylenol w/codeine #3] Allergies Allergy/AdvReac Type Severity Reaction Status Date / Time No Known Allergies Allergy Verified 09/03/17 09:33 Surgical - Exam Vital Signs Temp Pulse Resp BP Pulse Ox 99 F 90 18 157/75 94 L 09/02/17 18:54 09/02/17 18:54 09/02/17 18:54 09/02/17 18:54 09/02/17 18:54 - General well developed, well nourished, no pain - Eyes PERRL - ENT decreased hearing - Neck trachea midline - Respiratory normal expansion, normal respiratory effort - Cardiovascular Rhythm: regular - Abdomen 2 right nephrostomy tube is draining light pink urine Abdomen: soft, non tender - Neurologic confused Results - Labs 09/03/17 09:10 09/03/17 09:10 Abnormal Lab Results - Last 24 Hours (Table) 09/02/17 09/02/17 09/02/17 Range/Units 19:13 19:13 19:13 WBC 14.1 H (3.8-10.6) k/uL RBC (4.30-5.90) m/uL Hgb 12.3 L (13.0-17.5) gm/dL Hct 36.3 L (39.0-53.0) % Neutrophils # 12.6 H (1.3-7.7) k/uL Lymphocytes # 0.7 L (1.0-4.8) k/uL Glucose 110 H (74-99) mg/dL Calcium (8.4-10.2) mg/dL AST (17-59) U/L Total Creatine Kinase (55-170) U/L Total Protein 5.5 L (6.3-8.2) g/dL Albumin 3.2 L (3.5-5.0) g/dL Urine Protein 2+ H (Negative) Urine Ketones 2+ H (Negative) Urine Blood Large H (Negative) Ur Leukocyte Esterase Large H (Negative) Urine RBC >182 H (0-5) /hpf Urine WBC >182 H (0-5) /hpf Urine Bacteria Rare H (None) /hpf 09/02/17 09/03/17 09/03/17 Range/Units 19:13 09:10 09:10 WBC 13.0 H (3.8-10.6) k/uL RBC 4.01 L (4.30-5.90) m/uL Hgb 11.3 L (13.0-17.5) gm/dL Hct 34.0 L (39.0-53.0) % Neutrophils # 11.4 H (1.3-7.7) k/uL Lymphocytes # 0.8 L (1.0-4.8) k/uL Glucose (74-99) mg/dL Calcium 8.2 L (8.4-10.2) mg/dL AST 14 L (17-59) U/L Total Creatine Kinase <20 L (55-170) U/L Total Protein 4.9 L (6.3-8.2) g/dL Albumin 2.8 L (3.5-5.0) g/dL Urine Protein (Negative) Urine Ketones (Negative) Urine Blood (Negative) Ur Leukocyte Esterase (Negative) Urine RBC (0-5) /hpf Urine WBC (0-5) /hpf Urine Bacteria (None) /hpf Microbiology - Last 24 Hours (Table) 09/02/17 19:13 Urine Culture - Preliminary Urine,Ureter Diabetes panel 09/02/17 09/03/17 Range/Units 19:13 09:10 Sodium 138 139 (137-145) mmol/L Potassium 4.1 4.0 (3.5-5.1) mmol/L Chloride 101 104 (98-107) mmol/L Carbon Dioxide 25 25 (22-30) mmol/L BUN 17 17 (9-20) mg/dL Creatinine 1.00 0.96 (0.66-1.25) mg/dL Glucose 110 H 91 (74-99) mg/dL Calcium 8.9 8.2 L (8.4-10.2) mg/dL AST 20 14 L (17-59) U/L ALT 25 26 (21-72) U/L Alkaline Phosphatase 57 49 (38-126) U/L Total Protein 5.5 L 4.9 L (6.3-8.2) g/dL Albumin 3.2 L 2.8 L (3.5-5.0) g/dL Calcium panel 09/02/17 09/03/17 Range/Units 19:13 09:10 Calcium 8.9 8.2 L (8.4-10.2) mg/dL Albumin 3.2 L 2.8 L (3.5-5.0) g/dL Pituitary panel 09/02/17 09/03/17 Range/Units 19:13 09:10 Sodium 138 139 (137-145) mmol/L Potassium 4.1 4.0 (3.5-5.1) mmol/L Chloride 101 104 (98-107) mmol/L Carbon Dioxide 25 25 (22-30) mmol/L BUN 17 17 (9-20) mg/dL Creatinine 1.00 0.96 (0.66-1.25) mg/dL Glucose 110 H 91 (74-99) mg/dL Calcium 8.9 8.2 L (8.4-10.2) mg/dL Adrenal panel 09/02/17 09/03/17 Range/Units 19:13 09:10 Sodium 138 139 (137-145) mmol/L Potassium 4.1 4.0 (3.5-5.1) mmol/L Chloride 101 104 (98-107) mmol/L Carbon Dioxide 25 25 (22-30) mmol/L BUN 17 17 (9-20) mg/dL Creatinine 1.00 0.96 (0.66-1.25) mg/dL Glucose 110 H 91 (74-99) mg/dL Calcium 8.9 8.2 L (8.4-10.2) mg/dL Total Bilirubin 1.1 1.0 (0.2-1.3) mg/dL AST 20 14 L (17-59) U/L ALT 25 26 (21-72) U/L Alkaline Phosphatase 57 49 (38-126) U/L Total Protein 5.5 L 4.9 L (6.3-8.2) g/dL Albumin 3.2 L 2.8 L (3.5-5.0) g/dL - Imaging CT scan - abdomen: report reviewed, image reviewed CT scan - pelvis: report reviewed, image reviewed Assessment and Plan Assessment: Impression: Solitary right kidney with urinary tract infection and sepsis. Retained kidney stones. Alzheimer's. Recommendations. The infection should be treated. Once his mental status clears a secondary nephrostolithotomy will be in order. I suspect this will be later this week or early next week.
[2017-09-03] MEDS: cefTRIAXone IN SWFI 1,000 MG/10 ML SYRINGE IVP SCH (20:01)
[2017-09-04] MEDS ORDERED: VANCOMYCIN IV PER PHARMACY 1 EACH MISC MISCELLANE PRN (06:50)
[2017-09-04] MEDS ORDERED: VANCOMYCIN 1,500 MG in SODIUM CHLORIDE 0.9% 250 ML IVPB SCH (08:00)
[2017-09-04] MEDS: SODIUM CHLORIDE 0.9% 1,000 ML IV SCH ×2 (08:26→22:15)
[2017-09-04] MEDS: HEPARIN SODIUM,PORCINE 5,000 UNIT/ML 1 ML VIAL SQ SCH ×2 (09:39→16:02)
[2017-09-04] MEDS: cefTRIAXone IN SWFI 1,000 MG/10 ML SYRINGE IVP SCH (20:52)
--- NOTE | 2017-09-04 22:05 | PN ---
PROGRESS NOTE ATTENDING PHYSICIAN: Dr. Fortino Kennedy. CHIEF COMPLAINT: Re-evaluation. HISTORY OF PRESENT ILLNESS: This is an 87-year-old was admitted to the facility with a low-grade fever and leukocytosis. The patient had recently nephrostomy tube in the right renal pelvis for nephrolithiasis. The patient has 2 tubes in. The patient is followed by Urology and they plan to change the tubes. The patient's urine culture is suggestive of possible Staph aureus, limited colonies. We will place the patient on vancomycin as the patient only has one kidney. The patient otherwise feels fairly well. Denies any symptoms. REVIEW OF SYSTEMS: NEURO: Denies any headaches, dizziness. Psych: No anxiety. Cardiac: No chest pain, angina, palpitation. Respiratory: No shortness of breath, cough. GI no nausea, vomiting, abdominal pain, diarrhea. : The patient has urostomy tube with some hematuria. EXTREMITIES: No pain or edema. Constitutional: No fever or chills. PHYSICAL EXAMINATION: Pleasant gentleman present. No distress. VITAL SIGNS: Normal. Temperature this morning was 97.4, pulse 70, respirations 16, blood pressure 128/66, pulse ox 96% room air. HEENT: Normocephalic. Neck: No JVD. CHEST: Clear to auscultation. Cardiac normal S1, S2 with no gallops, murmurs. ABDOMEN: Soft. Bowel sounds present. Extremities revealed no edema. No tenderness. NEUROLOGIC: Awake, alert, oriented with well-coordinated movements. LABORATORY ASSESSMENT: None new. Microbiology as mentioned above. The patient had been started on vancomycin this morning. This evening the patient's urine culture is showing methicillin sensitive Staph aureus. In view of this, we will discontinue the vancomycin and continue with the Rocephin. The patient's condition discussed with the patient. I discussed the case with Dr. Calderon yesterday. He plans to take the patient for surgical procedure hopefully tomorrow. MMODL / IJN: [id number] /
[2017-09-05] MEDS: HEPARIN SODIUM,PORCINE 5,000 UNIT/ML 1 ML VIAL SQ SCH ×2 (01:15→10:31)
--- NOTE | 2017-09-05 07:06 | P.PN ---
Subjective Progress Note Date: 09/05/17 The patient was scheduled Friday for a secondary percutaneous nephrostolithotomy would came in the hospital the urinary tract infection with sepsis. He is recuperating from this. He is growing staph aureus. I'm unable to do the procedure today and this will be scheduled for next Friday. Objective - Vital Signs Vital signs: Vital Signs Temp 97.1 F L 09/04/17 22:05 Pulse 73 09/04/17 22:05 Resp 16 09/04/17 22:05 BP 126/70 09/04/17 22:05 Pulse Ox 94 L 09/04/17 22:05 Intake & Output 09/04/17 09/05/17 09/05/17 18:59 06:59 18:59 Intake Total 1200 Output Total 900 700 Balance -900 500 Intake: IV 1200 Sodium Chloride 0.9% 1, 1200 000 ml @ 75 mls/hr IV . [id number] [facility] Rx#:[id number] Output: Drainage 900 700 Right 500 350 Right Back 400 350 Other: Voiding Method Ileal Conduit (Right) # Voids 0 # Bowel Movements 0 - Labs CBC & Chem 7: 09/03/17 09:10 09/03/17 09:10 Labs: Microbiology - Last 24 Hours (Table) 09/02/17 19:13 Blood Culture - Preliminary Blood No Growth after 48 hours 09/02/17 19:13 Urine Culture - Final Urine,Ureter Staphylococcus aureus
[2017-09-05 07:41] LABS: HCT 30.9 % (39.0-53.0); HGB 10.2 gm/dL (13.0-17.5); MCH 28.1 pg (25.0-35.0); MCHC 33.1 g/dL (31.0-37.0); MCV 84.8 fL (80.0-100.0); Mean Platelet Volume 7.6; Platelet Count 199 k/uL (150-450); RBC 3.64 m/uL (4.30-5.90); RDW 14.1 % (11.5-15.5); WBC 5.3 k/uL (3.8-10.6)
[2017-09-05 07:55] VITALS: BP 137/73; PULSE 59; RESP 20; TEMP 98.3
== END 2017-09-05 10:38 | disposition home or self-care (01) | DRG 872 ==
LOC: EC 18:47 → 4MS4W 21:13
PROVIDERS: ADMIT Internal Medicine; ATTEND Internal Medicine
DX: A41.01 Sepsis due to Methicillin susceptible Staphylococcus aureus (principal); N39.0 Urinary tract infection, site not specified; G30.9 Alzheimer's disease, unspecified; F02.80 Dementia in other diseases classified elsewhere, unspecified severity, without behavioral disturbance, psychotic disturbance, mood disturbance, and anxiety; I10 Essential (primary) hypertension; N20.0 Calculus of kidney; Z79.82 Long term (current) use of aspirin; Z80.1 Family history of malignant neoplasm of trachea, bronchus and lung; Z80.3 Family history of malignant neoplasm of breast; Z82.0 Family history of epilepsy and other diseases of the nervous system; Z82.49 Family history of ischemic heart disease and other diseases of the circulatory system; Z85.528 Personal history of other malignant neoplasm of kidney; Z87.442 Personal history of urinary calculi; Z90.5 Acquired absence of kidney; Z93.6 Other artificial openings of urinary tract status; Z53.09 Procedure and treatment not carried out because of other contraindication; Z91.011 Allergy to milk products
CPT/HCPCS: 36415; 71046; 74018; 74176; 80053; 81001; 82550; 82553; 83605; 84484; 85025; 85027; 85610; 85730; 87040; 87077; 87086; 87186; 93005; 96361; 96374; 99285

== ENCOUNTER 2017-09-09 12:55 | Day surgery (SDC) | payer MEDICARE ==
[~2017-09-09 12:55] MED LIST changes: +AMPICILLIN 1,000 MG in SODIUM CHLORIDE 0.9% 50 ML IVPB ONE; -DEXAMETHASONE SOD PHOSPHATE 10 MG/ML 1 ML VIAL IV ONE; +GENTAMICIN 110 MG in SODIUM CHLORIDE 0.9% 100 ML IVPB ONE; -HYDROmorphone 0.5 MG/0.5 ML SYRINGE IVP PRN; -ONDANSETRON 4 MG/2 ML VIAL IVP ONE; -SCOPOLAMINE 1.5MG/72HR PATCH TRANSDERM ONE; -cefTRIAXone IN SWFI 1,000 MG/10 ML SYRINGE IVP ONE; +fentaNYL (PF) 50 MCG/ML 2 ML AMP IV PRN
[2017-09-09] MEDS: LACTATED RINGERS 1,000 ML IV SCH (13:32)
--- NOTE | 2017-09-09 14:06 | XR ---
EXAMINATION TYPE: XR KUB DATE OF EXAM: 09/09/2017 1:54 PM CLINICAL HISTORY: Kidney stones TECHNIQUE: Two Upright KUB images of the abdomen are obtained. COMPARISON: Abdominal x-ray and CT abdomen and pelvis from one week ago. FINDINGS: There is redemonstration of 2 percutaneous nephrostomy tubes one coiled and terminating in the right retroperitoneum, second extending along course of right ureter almost to bladder. There is redemonstration of several large right renal calculi, largest measuring 17 mm long axis. Approximatel y 6-10 small calculi are seen on recent CT. Numerous clips from left-sided nephrectomy are redemonstr ated. Lung bases are clear. There is overall nonobstructive bowel gas pattern. Scattered pelvic phleboliths are redemonstrated. Osseous structures are intact. IMPRESSION: Stable right-sided renal calculi with stable two right percutaneous nephrostomy tubes, on e suspected perforating proximal ureter.
[2017-09-09] MEDS ORDERED: SUCCINYLCHOLINE CHLORIDE 100 MG/5 ML SYR IV ONE (14:46)
[2017-09-09] MEDS ORDERED: fentaNYL (PF) 50 MCG/ML 2 ML AMP ONE (14:46)
[2017-09-09] MEDS ORDERED: PROPOFOL 10 MG/ML 20 ML VIAL IV ONE (14:46)
[2017-09-09] MEDS ORDERED: LIDOCAINE 1% INJ 10MG/ML (20 ML MDV) ONE (14:46)
[2017-09-09] MEDS ORDERED: PHENYLEPHRINE-0.9% NACL SYG 1 MG/10 ML SYRINGE ONE (14:46)
[2017-09-09] MEDS ORDERED: IOPAMIDOL-370 50ML BTL MISCELLANE ONE (15:31)
[2017-09-09] MEDS ORDERED: ACETAMINOPHEN TAB 500 MG TAB PO PRN (16:32)
[2017-09-09] MEDS ORDERED: HALOPERIDOL LACTATE 5 MG/ML 1 ML VIAL IM PRN (16:33)
--- NOTE | 2017-09-09 16:37 | P.OP ---
Date of Procedure: 09/09/17 Preoperative Diagnosis: Retained right renal calculi, solitary right kidney Postoperative Diagnosis: Same Procedure(s) Performed: Secondary percutaneous nephrostolithotomy for laser lithotripsy, placement of 6 x 26 double-J catheter Anesthesia: SAVANNAH Surgeon: Petey Calderon Estimated Blood Loss (ml): 10 Pathology: other (Stone) Condition: stable Disposition: PACU Indications for Procedure: The patient is an 87-year-old gentleman with a solitary kidney who underwent percutaneous nephrostolithotomy 2 weeks ago for an obstructing large renal stone and multiple other large renal stones. The bulk of the stone was removed. Since he has 2 nephrostomy tubes I wish to remove the rest of the stone if possible he did have a urine infection which postponed his surgery for 1 week Description of Procedure: The patient is brought to the operating suite he is given a general endotracheal anesthesia on the transport gurney. A 16-Palestinian coud-tip catheters placed in the bladder sterilely. He's placed in a prone position with care to airways and extremities. Through the established nephrostomy tubes 035 wires were passed through the ureter into the bladder. I then look with the flexible nephroscope into each collecting system and identify several stone and stone fragments that are removed with stone basketing. I then going to 2 calyces and there are 1 cm stones which are broken up with laser lithotripsy. The fragments are basketed. The final stone is not well identified. 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 I elect not to remove the stone. Then over the working wire I passed a a 6 x 26 double-J catheter that coils in the renal pelvis and the bladder. This is still low urine to go downstream or the nephrostomy tubes are healing. The patient is awake and returned recovery room good condition. Blood loss is approximately 10 mL. He tolerated procedure well. He'll be observed in the hospital overnight to make sure he has no problems at his age. The ureteral catheter will remain in about 10 days.
[2017-09-09] MEDS ORDERED: DEXTROSE 5%-0.45% NACL 1,000 ML IV SCH (16:45)
[2017-09-09] MEDS ORDERED: HYDROmorphone 0.5 MG/0.5 ML SYRINGE IVP ONE (17:35)
[2017-09-09 17:42] VITALS: RESP 16
[2017-09-09 18:28] VITALS: BMI 22.9
--- NOTE | 2017-09-09 20:18 | FL ---
EXAMINATION TYPE: FL Perc Nephrostomy New Access DATE OF EXAM: 09/09/2017 COMPARISON: NONE HISTORY: Right renal stones TECHNIQUE: Fluoroscopy. FINDINGS: Fluoroscopic guidance was provided during procedure performed by Dr. Calderon. A total of 45 seconds of fluoroscopic time was utilized during the procedure and 2 spot images was acquired. IMPRESSION: As Above.
[2017-09-09] MEDS: CEPHALEXIN 500 MG CAP PO SCH (23:15)
--- NOTE | 2017-09-10 07:27 | P.DS ---
Providers Attending physician: Petey Calderon Primary care physician: [facility] Course: The patient was brought in the hospital yesterday 09/09/2017 for a secondary percutaneous nephrostolithotomy. He was kept overnight. He did well overnight. He had minimal discomfort. There is no fever or chills. His vital signs are stable. He'll be discharged back to the [facility]. He 'll follow-up in the office in 10 days. He'll resume his home medications. His condition is good. His diet is regular. His activities normal. Patient Condition at Discharge: Good Plan - Discharge Summary Discharge Rx Participant: No New Discharge Prescriptions: No Action Aspirin EC [Ecotrin] 325 mg PO DAILY Acetaminophen Tab [Tylenol] 650 mg PO Q6HR PRN tab PRN Reason: Mild Pain Or Fever > 100.5 Cephalexin [Keflex] 250 mg PO Q8HR #21 capsule Discharge Medication List Aspirin EC [Ecotrin] 325 mg PO DAILY 08/27/17 [History] Acetaminophen Tab [Tylenol] 650 mg PO Q6HR PRN tab 09/05/17 [Rx] Cephalexin [Keflex] 250 mg PO Q8HR #21 capsule 09/05/17 [Rx] Follow up Appointment(s)/Referral(s): Petey Calderon MD [STAFF PHYSICIAN] - 10 Days Discharge Disposition: HOME SELF-CARE
[2017-09-10] MEDS: LACTATED RINGERS 1,000 ML IV SCH (07:56)
[2017-09-10] MEDS: CEPHALEXIN 500 MG CAP PO SCH (07:56)
[2017-09-10 08:21] VITALS: BP 119/53; PULSE 63; TEMP 98.2
== END 2017-09-10 13:00 | disposition home or self-care (01) ==
LOC: OR 12:55 → 3SUR 16:31 → OR 09-10 13:00
PROVIDERS: ATTEND Urology
DX: N20.0 Calculus of kidney (principal); N39.0 Urinary tract infection, site not specified; I12.9 Hypertensive chronic kidney disease with stage 1 through stage 4 chronic kidney disease, or unspecified chronic kidney disease; N18.3 Chronic kidney disease, stage 3 (moderate); M19.90 Unspecified osteoarthritis, unspecified site; R41.3 Other amnesia; Z85.528 Personal history of other malignant neoplasm of kidney; Z79.82 Long term (current) use of aspirin; Z79.899 Other long term (current) drug therapy; Z91.011 Allergy to milk products
CPT/HCPCS: 94760; 82365; 50432; 74018; 50080; C2625; C1769 ×2; J2001; J3010; J1580; J0290; J2370; J0330; J2704; J1170; Q9967

== ENCOUNTER 2017-09-24 16:25 | Emergency (ER) | payer MEDICARE ==
[2017-09-24 16:40] LABS: Basophils % (A) 1 %; Eosinophils # (A) 0.4 k/uL (0-0.7); Eosinophils % (A) 9 %; HCT 38.8 % (39.0-53.0); HGB 12.4 gm/dL (13.0-17.5); Lymphocytes # (A) 1.1 k/uL (1.0-4.8); Lymphocytes % (A) 25 %; MCH 27.1 pg (25.0-35.0); MCHC 31.9 g/dL (31.0-37.0); Mean Platelet Volume 7.1; Monocytes # (A) 0.2 k/uL (0-1.0); Monocytes % (A) 5 %; Neutrophils # (A) 2.6 k/uL (1.3-7.7); Neutrophils % (A) 60 %; Platelet Count 146 k/uL (150-450); RBC 4.56 m/uL (4.30-5.90); RDW 14.5 % (11.5-15.5); WBC 4.3 k/uL (3.8-10.6)
[2017-09-24 16:53] LABS: Albumin 3.6 g/dL (3.5-5.0); Magnesium 1.9 mg/dL (1.6-2.3); Potassium 3.8 mmol/L (3.5-5.1); Total Bilirubin 0.4 mg/dL (0.2-1.3); Total Protein 5.9 g/dL (6.3-8.2)
[2017-09-24 16:56] LABS: Partial Thromboplastin Time 23.6 sec (22.0-30.0); Prothrombin Time 9.9 sec (9.0-12.0)
--- NOTE | 2017-09-24 17:00 | XR ---
EXAMINATION TYPE: XR chest 2V DATE OF EXAM: 09/24/2017 COMPARISON: 09/02/2017 HISTORY: Chest discomfort TECHNIQUE: Frontal and lateral views of the chest are obtained. FINDINGS: Heart and mediastinum are normal. Lungs are clear. Diaphragm is normal. Bony thorax is int act. There is minor spurring in the thoracic spine. IMPRESSION: No active cardiopulmonary disease. There is clearing of the pleural reaction and thicken ing compared to old exam. There is improved inspiration.
[2017-09-24 17:01] LABS: Creatine Kinase <20 U/L (55-170)
--- NOTE | 2017-09-24 17:05 | ED ---
General Adult HPI - General Chief complaint: Chest Pain Stated complaint: Chest pain Time Seen by Provider: 09/24/17 16:29 Source: patient, RN notes reviewed, old records reviewed Mode of arrival: EMS Limitations: no limitations - History of Present Illness Initial comments: This is a 70-year-old male to the ER for evaluation. They presents for evaluation regards to chest pain. Abdominal pain chest pain chest pain that radiated across from his chest. Patient has history of CVA, high blood pressure. No recent travel history no known sick contacts. Patient states he was just concerned that the pain might be heart attack, he does have a family history of heart disease. No prior history of heart disease himself - Related Data Home Medications Medication Instructions Recorded Confirmed No Known Home Medications [No 09/24/17 09/24/17 Known Home Medications] Allergies Allergy/AdvReac Type Severity Reaction Status Date / Time Milk Containing Products Allergy Diarrhea Verified 09/24/17 16:44 [Dairy] Review of Systems ROS Statement: Those systems with pertinent positive or pertinent negative responses have been documented in the HPI. ROS Other: All systems not noted in ROS Statement are negative. 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 History of Any Multi-Drug Resistant Organisms: None Reported Past Surgical History: Tonsillectomy Additional Past Surgical History / Comment(s): nephrectomy, percutaneous nephrostolithotomy 08-27-17 Past Anesthesia/Blood Transfusion Reactions: No Reported Reaction Past Psychological History: No Psychological Hx Reported Smoking Status: Never smoker Past Alcohol Use History: None Reported Past Drug Use History: None Reported - Past Family History Father Family Medical History: Cancer General Exam Limitations: no limitations General appearance: alert, in no apparent distress Head exam: Present: atraumatic, normocephalic, normal inspection Eye exam: Present: normal appearance, PERRL, EOMI. Absent: scleral icterus, conjunctival injection, periorbital swelling ENT exam: Present: normal exam, mucous membranes moist Neck exam: Present: normal inspection. Absent: tenderness, meningismus, lymphadenopathy Respiratory exam: Present: normal lung sounds bilaterally. Absent: respiratory distress, wheezes, rales, rhonchi, stridor Cardiovascular Exam: Present: regular rate, normal rhythm, normal heart sounds. Absent: systolic murmur, diastolic murmur, rubs, gallop, clicks GI/Abdominal exam: Present: soft, normal bowel sounds. Absent: distended, tenderness, guarding, rebound, rigid Extremities exam: Present: normal inspection, full ROM, normal capillary refill. Absent: tenderness, pedal edema, joint swelling, calf tenderness Back exam: Present: normal inspection Neurological exam: Present: alert, oriented X3, CN II-XII intact Psychiatric exam: Present: normal affect, normal mood Skin exam: Present: warm, dry, intact, normal color. Absent: rash Course Vital Signs 09/24/17 09/24/17 09/24/17 16:30 17:40 18:42 Temperature 98.2 F Pulse Rate 63 56 L 52 L Respiratory 18 16 18 Rate Blood Pressure 134/63 138/60 167/72 O2 Sat by Pulse 97 99 100 Oximetry - Reevaluation(s) Reevaluation #1: 09/24/17 19:07 Patient currently without chest pain Reevaluation #2: 09/24/17 19:07 Medical records thoroughly reviewed EKG Findings - EKG Comments: EKG Findings:: EKG shows sinus bradycardia rate of 54, OH 194, QRS 108, QTC 417 Medical Decision Making - Medical Decision Making 87 male the ER with chest pain, patient concern for his heart although chest pain is very atypical radiating chest pain across his chest spoke with Dr. Kennedy , patient has multiple ER visits for same, patient can be discharged home - Lab Data Result diagrams: 09/24/17 16:31 09/24/17 16:31 Lab Results 09/24/17 09/24/17 09/24/17 Range/Units 16:31 16:31 16:31 WBC 4.3 (3.8-10.6) k/uL RBC 4.56 (4.30-5.90) m/uL Hgb 12.4 L (13.0-17.5) gm/dL Hct 38.8 L (39.0-53.0) % MCV 85.0 (80.0-100.0) fL MCH 27.1 (25.0-35.0) pg MCHC 31.9 (31.0-37.0) g/dL RDW 14.5 (11.5-15.5) % Plt Count 146 L (150-450) k/uL Neutrophils % 60 % Lymphocytes % 25 % Monocytes % 5 % Eosinophils % 9 % Basophils % 1 % Neutrophils # 2.6 (1.3-7.7) k/uL Lymphocytes # 1.1 (1.0-4.8) k/uL Monocytes # 0.2 (0-1.0) k/uL Eosinophils # 0.4 (0-0.7) k/uL Basophils # 0.0 (0-0.2) k/uL PT (9.0-12.0) sec INR (<1.2) APTT (22.0-30.0) sec Sodium 142 (137-145) mmol/L Potassium 3.8 (3.5-5.1) mmol/L Chloride 107 (98-107) mmol/L Carbon Dioxide 25 (22-30) mmol/L Anion Gap 10 mmol/L BUN 32 H (9-20) mg/dL Creatinine 1.20 (0.66-1.25) mg/dL Est GFR (CKD-EPI)AfAm 63 (>60 ml/min/1.73 sqM) Est GFR (CKD-EPI)NonAf 54 (>60 ml/min/1.73 sqM) Glucose 160 H (74-99) mg/dL Calcium 9.0 (8.4-10.2) mg/dL Magnesium 1.9 (1.6-2.3) mg/dL Total Bilirubin 0.4 (0.2-1.3) mg/dL AST 27 (17-59) U/L ALT 24 (21-72) U/L Alkaline Phosphatase 82 (38-126) U/L Total Creatine Kinase <20 L (55-170) U/L CK-MB (CK-2) 0.3 (0.0-2.4) ng/mL CK-MB (CK-2) Rel Index Troponin I <0.012 (0.000-0.034) ng/mL Total Protein 5.9 L (6.3-8.2) g/dL Albumin 3.6 (3.5-5.0) g/dL Lipase 53 (23-300) U/L 09/24/17 Range/Units 16:31 WBC (3.8-10.6) k/uL RBC (4.30-5.90) m/uL Hgb (13.0-17.5) gm/dL Hct (39.0-53.0) % MCV (80.0-100.0) fL MCH (25.0-35.0) pg MCHC (31.0-37.0) g/dL RDW (11.5-15.5) % Plt Count (150-450) k/uL Neutrophils % % Lymphocytes % % Monocytes % % Eosinophils % % Basophils % % Neutrophils # (1.3-7.7) k/uL Lymphocytes # (1.0-4.8) k/uL Monocytes # (0-1.0) k/uL Eosinophils # (0-0.7) k/uL Basophils # (0-0.2) k/uL PT 9.9 (9.0-12.0) sec INR 1.0 (<1.2) APTT 23.6 (22.0-30.0) sec Sodium (137-145) mmol/L Potassium (3.5-5.1) mmol/L Chloride (98-107) mmol/L Carbon Dioxide (22-30) mmol/L Anion Gap mmol/L BUN (9-20) mg/dL Creatinine (0.66-1.25) mg/dL Est GFR (CKD-EPI)AfAm (>60 ml/min/1.73 sqM) Est GFR (CKD-EPI)NonAf (>60 ml/min/1.73 sqM) Glucose (74-99) mg/dL Calcium (8.4-10.2) mg/dL Magnesium (1.6-2.3) mg/dL Total Bilirubin (0.2-1.3) mg/dL AST (17-59) U/L ALT (21-72) U/L Alkaline Phosphatase (38-126) U/L Total Creatine Kinase (55-170) U/L CK-MB (CK-2) (0.0-2.4) ng/mL CK-MB (CK-2) Rel Index Troponin I (0.000-0.034) ng/mL Total Protein (6.3-8.2) g/dL Albumin (3.5-5.0) g/dL Lipase (23-300) U/L - Radiology Data Radiology results: report reviewed (CTA chest negative for acute disease), image reviewed Disposition Clinical Impression: Atypical chest pain Disposition: HOME SELF-CARE Condition: Good Instructions: Chest Pain (ED) Is patient prescribed a controlled substance at d/c from ED?: No Referrals: Parvez Kennedy MD [Primary Care Provider] - 1-2 days
[2017-09-24 17:14] LABS: Creatine Kinase MB 0.3 ng/mL (0.0-2.4); Troponin I <0.012 ng/mL (0.000-0.034)
[2017-09-24 18:43] VITALS: BP 167/72; PULSE 52
--- NOTE | 2017-09-24 18:47 | CT ---
EXAMINATION TYPE: CT angio chest DATE OF EXAM: 09/24/2017 6:39 PM COMPARISON: NONE HISTORY: CHEST PAIN CT DLP: 570 mGycm Automated exposure control for dose reduction was used. CONTRAST: CTA scan of the thorax is performed with IV Contrast, patient injected with 80 mL of Isovue 370, pulm onary embolism protocol. There are 3-D post processed images.. FINDINGS: There is mild subsegmental atelectasis at the lung bases. There is no evidence of a pulmonary mass. T here is no pleural effusion. There are no filling defects in the pulmonary arteries. There are no hil ar masses. There is no mediastinal adenopathy. Thoracic aorta shows mild atheromatous change. Ascendi ng aorta measures 3.5 cm. There is no evidence of aneurysm or dissection. There is spurring in the th oracic spine. IMPRESSION: NEGATIVE CT ANGIOGRAM OF THE CHEST. NO EVIDENCE OF PULMONARY EMBOLISM.
[2017-09-24 19:32] VITALS: RESP 16; TEMP 98
== END 2017-09-24 19:31 | disposition home or self-care (01) ==
LOC: EC 16:25
DX: R07.89 Other chest pain (principal); R10.9 Unspecified abdominal pain; Z85.528 Personal history of other malignant neoplasm of kidney; Z91.011 Allergy to milk products
CPT/HCPCS: 36415; 71046; 71275; 80053; 82550; 82553; 83690; 83735; 84484; 85025; 85610; 85730; 93005; 99285

== ENCOUNTER 2018-04-29 05:26 | Inpatient (IN) | payer MEDICARE ==
--- NOTE | 2018-04-29 05:43 | ED ---
Fall HPI - General Source: patient <Esther Nassar - Last Filed: 04/29/18 07:22> <Andi Levy - Last Filed: 04/29/18 13:05> - General Chief Complaint: Fall Stated Complaint: Fall Time Seen by Provider: 04/29/18 05:38 - History of Present Illness Initial Comments: Luther is a pleasant 80-year-old gentleman is brought to the ED today via EMS for evaluation of recurrent falls and confusion. Patient resides in an assisted living, caregivers at the facility report that 2 times during the night they were called to the patient's room due to falls. Falls were unwitnessed. Patient no obvious injuries however he seemed confused and does not recall the falls therefore decision was made to transfer him to the hospital for further evaluation. Patient denied any specific complaints was somewhat confused about why he was transferred to hospital. (Esther Nassar) - Related Data Home Medications Medication Instructions Recorded Confirmed Aspirin EC [Ecotrin] 325 mg PO DAILY 04/29/18 04/29/18 Allergies Allergy/AdvReac Type Severity Reaction Status Date / Time Milk Containing Products Allergy Diarrhea Verified 04/29/18 06:47 [Dairy] Review of Systems ROS Other: All systems not noted in ROS Statement are negative. <Esther Nassar - Last Filed: 04/29/18 07:22> ROS Other: All systems not noted in ROS Statement are negative. <Andi Levy - Last Filed: 04/29/18 13:05> ROS Statement: Those systems with pertinent positive or pertinent negative responses have been documented in the HPI. 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 History of Any Multi-Drug Resistant Organisms: None Reported Past Surgical History: Tonsillectomy Additional Past Surgical History / Comment(s): nephrectomy, percutaneous nephrostolithotomy 5-18 Past Anesthesia/Blood Transfusion Reactions: No Reported Reaction Past Psychological History: No Psychological Hx Reported Smoking Status: Never smoker Past Alcohol Use History: None Reported Past Drug Use History: None Reported - Past Family History Father Family Medical History: Cancer <Esther Nassar - Last Filed: 04/29/18 07:22> General Exam Limitations: no limitations <Esther Nassar - Last Filed: 04/29/18 07:22> <Andi Levy - Last Filed: 04/29/18 13:05> - General Exam Comments Initial Comments: Physical Exam GENERAL: Patient is well-developed and well-nourished. Patient is nontoxic and well- hydrated and is in no distress. HENT: Normocephalic, Atraumatic. EYES: PERRL, EOMI PULMONARY: Unlabored respirations. No audible rales rhonchi or wheezing was noted. CARDIOVASCULAR: There is a regular rate and rhythm without any murmurs gallops or rubs. ABDOMEN: Soft and nontender with normal bowel sounds. SKIN: Skin is clear with no lesions or rashes and otherwise unremarkable. : Deferred NEUROLOGIC: Alert and oriented to person, place, somewhat confused about date and events leading up to coming to the hospital MUSCULOSKELETAL: Normal extremities with adequate strength and full range of motion. No lower extremity swelling or edema. No calf tenderness. PSYCHIATRIC: Normal psychiatric evaluation. Limitations: no limitations (Esther Nassar) Course <Esther Nassar - Last Filed: 04/29/18 07:22> <Andi Levy - Last Filed: 04/29/18 13:05> Vital Signs 04/29/18 04/29/18 04/29/18 05:29 09:14 10:45 Temperature 98.2 F Pulse Rate 100 100 93 Respiratory 16 18 18 Rate Blood Pressure 160/90 147/86 117/92 O2 Sat by Pulse 93 L 97 98 Oximetry 04/29/18 12:44 Temperature Pulse Rate 68 Respiratory 18 Rate Blood Pressure 155/83 O2 Sat by Pulse 95 Oximetry - Reevaluation(s) Reevaluation #1: 04/29/18 10:34 I did discuss the case with the patient's son as well as Dr. Kennedy the patient has had increased weakness and decreased activity. Thus far imaging and lab work is unremarkable. Patient was be transferred back to his facility. (Andi Levy) Reevaluation #2: 04/29/18 13:02 Patient is not able ambulate or even sit upright by himself without assistance from at least 2 people. I did discuss the case again with Dr. Kennedy patient be admitted for IV fluids IV antibiotics and culturing. He's failure to thrive at this time (Andi Levy) Medical Decision Making - Lab Data Result diagrams: 04/29/18 05:35 04/29/18 05:35 - EKG Data -: EKG Interpreted by Me <Esther Nassar - Last Filed: 04/29/18 07:22> - Lab Data Result diagrams: 04/29/18 05:35 04/29/18 05:35 <Andi Levy - Last Filed: 04/29/18 13:05> - Medical Decision Making Patient was seen and evaluated history was obtained from the patient and EMS and labs and imaging were ordered Imaging no acute findings CBC and CMP with no acute findings (Esther Nassar) - Lab Data Lab Results 04/29/18 04/29/18 04/29/18 Range/Units 05:32 05:35 05:35 WBC 7.7 (3.8-10.6) k/uL RBC 5.60 (4.30-5.90) m/uL Hgb 16.0 (13.0-17.5) gm/dL Hct 48.1 (39.0-53.0) % MCV 85.9 (80.0-100.0) fL MCH 28.5 (25.0-35.0) pg MCHC 33.2 (31.0-37.0) g/dL RDW 13.7 (11.5-15.5) % Plt Count 110 L (150-450) k/uL Neutrophils % 87 % Lymphocytes % 5 % Monocytes % 6 % Eosinophils % 1 % Basophils % 0 % Neutrophils # 6.7 (1.3-7.7) k/uL Lymphocytes # 0.4 L (1.0-4.8) k/uL Monocytes # 0.5 (0-1.0) k/uL Eosinophils # 0.1 (0-0.7) k/uL Basophils # 0.0 (0-0.2) k/uL PT (9.0-12.0) sec INR (<1.2) APTT (22.0-30.0) sec Sodium (137-145) mmol/L Potassium (3.5-5.1) mmol/L Chloride (98-107) mmol/L Carbon Dioxide (22-30) mmol/L Anion Gap mmol/L BUN (9-20) mg/dL Creatinine (0.66-1.25) mg/dL Est GFR (CKD-EPI)AfAm (>60 ml/min/1.73 sqM) Est GFR (CKD-EPI)NonAf (>60 ml/min/1.73 sqM) Glucose (74-99) mg/dL POC Glucose (mg/dL) 108 H (75-99) mg/dL POC Glu Organ Assembler ID Rob Delgadillo Calcium (8.4-10.2) mg/dL Total Bilirubin (0.2-1.3) mg/dL AST (17-59) U/L ALT (21-72) U/L Alkaline Phosphatase (38-126) U/L Total Creatine Kinase 36 L (55-170) U/L CK-MB (CK-2) 0.5 (0.0-2.4) ng/mL CK-MB (CK-2) Rel Index 1.4 Troponin I 0.012 (0.000-0.034) ng/mL Total Protein (6.3-8.2) g/dL Albumin (3.5-5.0) g/dL Urine Color Urine Appearance (Clear) Urine pH (5.0-8.0) Ur Specific [place] (1.001-1.035) Urine Protein (Negative) Urine Glucose (UA) (Negative) Urine Ketones (Negative) Urine Blood (Negative) Urine Nitrite (Negative) Urine Bilirubin (Negative) Urine Urobilinogen (<2.0) mg/dL Ur Leukocyte Esterase (Negative) Urine RBC (0-5) /hpf Urine WBC (0-5) /hpf Ur Squamous Epith Cells (0-4) /hpf 04/29/18 04/29/18 04/29/18 Range/Units 05:35 05:35 06:40 WBC (3.8-10.6) k/uL RBC (4.30-5.90) m/uL Hgb (13.0-17.5) gm/dL Hct (39.0-53.0) % MCV (80.0-100.0) fL MCH (25.0-35.0) pg MCHC (31.0-37.0) g/dL RDW (11.5-15.5) % Plt Count (150-450) k/uL Neutrophils % % Lymphocytes % % Monocytes % % Eosinophils % % Basophils % % Neutrophils # (1.3-7.7) k/uL Lymphocytes # (1.0-4.8) k/uL Monocytes # (0-1.0) k/uL Eosinophils # (0-0.7) k/uL Basophils # (0-0.2) k/uL PT 10.6 (9.0-12.0) sec INR 1.0 (<1.2) APTT 26.7 (22.0-30.0) sec Sodium 137 (137-145) mmol/L Potassium 4.4 (3.5-5.1) mmol/L Chloride 106 (98-107) mmol/L Carbon Dioxide 22 (22-30) mmol/L Anion Gap 9 mmol/L BUN 23 H (9-20) mg/dL Creatinine 1.06 (0.66-1.25) mg/dL Est GFR (CKD-EPI)AfAm 73 (>60 ml/min/1.73 sqM) Est GFR (CKD-EPI)NonAf 63 (>60 ml/min/1.73 sqM) Glucose 113 H (74-99) mg/dL POC Glucose (mg/dL) (75-99) mg/dL POC Glu Organ Assembler ID Calcium 9.3 (8.4-10.2) mg/dL Total Bilirubin 1.1 (0.2-1.3) mg/dL AST 26 (17-59) U/L ALT 24 (21-72) U/L Alkaline Phosphatase 83 (38-126) U/L Total Creatine Kinase (55-170) U/L CK-MB (CK-2) (0.0-2.4) ng/mL CK-MB (CK-2) Rel Index Troponin I (0.000-0.034) ng/mL Total Protein 7.0 (6.3-8.2) g/dL Albumin 4.0 (3.5-5.0) g/dL Urine Color Yellow Urine Appearance Clear (Clear) Urine pH 5.5 (5.0-8.0) Ur Specific [place] 1.016 (1.001-1.035) Urine Protein Trace H (Negative) Urine Glucose (UA) Negative (Negative) Urine Ketones Negative (Negative) Urine Blood Moderate H (Negative) Urine Nitrite Negative (Negative) Urine Bilirubin Negative (Negative) Urine Urobilinogen <2.0 (<2.0) mg/dL Ur Leukocyte Esterase Negative (Negative) Urine RBC 53 H (0-5) /hpf Urine WBC 2 (0-5) /hpf Ur Squamous Epith Cells <1 (0-4) /hpf - EKG Data EKG Comments: EKG obtained at 5:37 AM, rate is 99 there is a P-wave before each QRS complex, rhythm is sinus, there is prolonged DE-2 14, first degree AV block, right bundle branch block, QRS 120, QTC 474, no acute ST elevations or depressions no evidence of acute ischemia or infarction (Esther Nassar) Disposition <Esther Nassar - Last Filed: 04/29/18 07:22> <Andi Levy - Last Filed: 04/29/18 13:05> Clinical Impression: Fall, Dehydration, Weakness, Failure to thrive, Hematuria Disposition: ADMITTED IP TO THIS HOSP Condition: Stable Referrals: Parvez Kennedy MD [Primary Care Provider] - 1-2 days
[2018-04-29 06:01] LABS: Basophils % (A) 0 %; Eosinophils # (A) 0.1 k/uL (0-0.7); Eosinophils % (A) 1 %; HCT 48.1 % (39.0-53.0); Lymphocytes # (A) 0.4 k/uL (1.0-4.8); Lymphocytes % (A) 5 %; MCH 28.5 pg (25.0-35.0); MCHC 33.2 g/dL (31.0-37.0); MCV 85.9 fL (80.0-100.0); Mean Platelet Volume 6.3; Monocytes # (A) 0.5 k/uL (0-1.0); Monocytes % (A) 6 %; Neutrophils # (A) 6.7 k/uL (1.3-7.7); Neutrophils % (A) 87 %; Platelet Count 110 k/uL (150-450); RDW 13.7 % (11.5-15.5); WBC 7.7 k/uL (3.8-10.6)
[2018-04-29 06:07] LABS: Partial Thromboplastin Time 26.7 sec (22.0-30.0); Prothrombin Time 10.6 sec (9.0-12.0)
[2018-04-29 06:11] LABS: Calcium 9.3 mg/dL (8.4-10.2); Total Bilirubin 1.1 mg/dL (0.2-1.3)
[2018-04-29 06:14] LABS: Potassium 4.4 mmol/L (3.5-5.1)
--- NOTE | 2018-04-29 06:26 | XR ---
EXAMINATION TYPE: XR pelvis AP view DATE OF EXAM: 04/29/2018 COMPARISON: NONE HISTORY: Fall. Pain. TECHNIQUE: Single view FINDINGS: Pelvic ring is intact. Proximal femurs and hip joints are intact. There is minimal acetabul ar spurring. Sacroiliac joints appear intact. IMPRESSION: No acute abnormality of the pelvis and both hips. No fracture seen.
--- NOTE | 2018-04-29 06:27 | XR ---
EXAMINATION TYPE: XR chest 1V portable DATE OF EXAM: 04/29/2018 COMPARISON: 09/24/2017 HISTORY: Fall. Chest pain TECHNIQUE: Single frontal view of the chest is obtained. FINDINGS: There is no heart failure nor confluent pneumonic infiltrate. Costophrenic angles are bradford r. There are chest leads. Bony thorax appears intact. IMPRESSION: No active cardiopulmonary disease. No adverse change compared to old exam.
--- NOTE | 2018-04-29 06:30 | CT ---
EXAMINATION TYPE: CT brain kerline mejia DATE OF EXAM: 04/29/2018 COMPARISON: CT brain 06/05/2017 HISTORY: fall. evaluate for trauma headache. Neck pain. CT DLP: 1450.30 mGycm Automated exposure control for dose reduction was used. TECHNIQUE: CT scan of the head and cervical spine are performed without contrast. FINDINGS: There is diffuse cerebral cortical atrophy. There is no mass effect nor midline shift. Th ere is no sign of intracranial hemorrhage. There is patchy hypodensity in the periventricular white m atter. Calvarium is intact. Cervical vertebra have fairly normal spacing and alignment for the patient's age. Posterior elements are intact. The skull base appears intact. There is no evidence of a fracture. IMPRESSION: Cerebral atrophy and chronic small vessel ischemia. No change. Negative CT scan of the cervical spine. No fracture.
[2018-04-29 06:31] LABS: Creatine Kinase MB 0.5 ng/mL (0.0-2.4); Troponin I 0.012 ng/mL (0.000-0.034)
[2018-04-29 07:03] LABS: Glucose,Whole Blood 108 mg/dL (75-99)
[2018-04-29 07:45] LABS: Appearance,Urine Clear (Clear); Bilirubin,Urine Negative (Negative); Blood,Urine Moderate (Negative); Color,Urine Yellow; Glucose,Urine (UA) Negative (Negative); Ketones,Urine Negative (Negative); Leukocyte Esterase,Urine Negative (Negative); Nitrite,Urine Negative (Negative); PH, Urine 5.5 (5.0-8.0); Protein,Urine Trace (Negative); RBC,Urine 53 /hpf (0-5); Specific Gravity,Urine 1.016 (1.001-1.035); Squamous Epithelial Cell,Urine <1 /hpf (0-4); Urobilinogen,Urine <2.0 mg/dL (<2.0); WBC,Urine 2 /hpf (0-5)
[2018-04-29] MEDS ORDERED: SODIUM CHLORIDE 0.9% 500 ML 500 ML IV STA (08:18)
[2018-04-29] MEDS ORDERED: SODIUM CHLORIDE 0.9% 1,000 ML IV STA (10:32)
[2018-04-29] MEDS ORDERED: LEVOFLOXACIN 250MG-D5W PMX 250 MG in DEXTROSE/WATER 1 50ML.BAG IVPB STA (13:01)
[2018-04-29] MEDS ORDERED: NALOXONE 0.4 MG/ML 1 ML VIAL IV PRN (13:05)
--- NOTE | 2018-04-29 13:55 | ED ---
Medical Decision Making - Medical Decision Making Patient did spike a temperature while in the emergency department also influenza testing is positive. He will be placed on appropriate medication. - Lab Data Result diagrams: 04/29/18 05:35 04/29/18 05:35 Lab Results 04/29/18 04/29/18 04/29/18 Range/Units 05:32 05:35 05:35 WBC 7.7 (3.8-10.6) k/uL RBC 5.60 (4.30-5.90) m/uL Hgb 16.0 (13.0-17.5) gm/dL Hct 48.1 (39.0-53.0) % MCV 85.9 (80.0-100.0) fL MCH 28.5 (25.0-35.0) pg MCHC 33.2 (31.0-37.0) g/dL RDW 13.7 (11.5-15.5) % Plt Count 110 L (150-450) k/uL Neutrophils % 87 % Lymphocytes % 5 % Monocytes % 6 % Eosinophils % 1 % Basophils % 0 % Neutrophils # 6.7 (1.3-7.7) k/uL Lymphocytes # 0.4 L (1.0-4.8) k/uL Monocytes # 0.5 (0-1.0) k/uL Eosinophils # 0.1 (0-0.7) k/uL Basophils # 0.0 (0-0.2) k/uL PT (9.0-12.0) sec INR (<1.2) APTT (22.0-30.0) sec Sodium (137-145) mmol/L Potassium (3.5-5.1) mmol/L Chloride (98-107) mmol/L Carbon Dioxide (22-30) mmol/L Anion Gap mmol/L BUN (9-20) mg/dL Creatinine (0.66-1.25) mg/dL Est GFR (CKD-EPI)AfAm (>60 ml/min/1.73 sqM) Est GFR (CKD-EPI)NonAf (>60 ml/min/1.73 sqM) Glucose (74-99) mg/dL POC Glucose (mg/dL) 108 H (75-99) mg/dL POC Glu Tow Boat Captain ID Rob Delgadillo Calcium (8.4-10.2) mg/dL Total Bilirubin (0.2-1.3) mg/dL AST (17-59) U/L ALT (21-72) U/L Alkaline Phosphatase (38-126) U/L Total Creatine Kinase 36 L (55-170) U/L CK-MB (CK-2) 0.5 (0.0-2.4) ng/mL CK-MB (CK-2) Rel Index 1.4 Troponin I 0.012 (0.000-0.034) ng/mL Total Protein (6.3-8.2) g/dL Albumin (3.5-5.0) g/dL Urine Color Urine Appearance (Clear) Urine pH (5.0-8.0) Ur Specific [place] (1.001-1.035) Urine Protein (Negative) Urine Glucose (UA) (Negative) Urine Ketones (Negative) Urine Blood (Negative) Urine Nitrite (Negative) Urine Bilirubin (Negative) Urine Urobilinogen (<2.0) mg/dL Ur Leukocyte Esterase (Negative) Urine RBC (0-5) /hpf Urine WBC (0-5) /hpf Ur Squamous Epith Cells (0-4) /hpf Influenza Type A RNA (Not Detectd) Influenza Type B (PCR) (Not Detectd) 04/29/18 04/29/18 04/29/18 Range/Units 05:35 05:35 06:40 WBC (3.8-10.6) k/uL RBC (4.30-5.90) m/uL Hgb (13.0-17.5) gm/dL Hct (39.0-53.0) % MCV (80.0-100.0) fL MCH (25.0-35.0) pg MCHC (31.0-37.0) g/dL RDW (11.5-15.5) % Plt Count (150-450) k/uL Neutrophils % % Lymphocytes % % Monocytes % % Eosinophils % % Basophils % % Neutrophils # (1.3-7.7) k/uL Lymphocytes # (1.0-4.8) k/uL Monocytes # (0-1.0) k/uL Eosinophils # (0-0.7) k/uL Basophils # (0-0.2) k/uL PT 10.6 (9.0-12.0) sec INR 1.0 (<1.2) APTT 26.7 (22.0-30.0) sec Sodium 137 (137-145) mmol/L Potassium 4.4 (3.5-5.1) mmol/L Chloride 106 (98-107) mmol/L Carbon Dioxide 22 (22-30) mmol/L Anion Gap 9 mmol/L BUN 23 H (9-20) mg/dL Creatinine 1.06 (0.66-1.25) mg/dL Est GFR (CKD-EPI)AfAm 73 (>60 ml/min/1.73 sqM) Est GFR (CKD-EPI)NonAf 63 (>60 ml/min/1.73 sqM) Glucose 113 H (74-99) mg/dL POC Glucose (mg/dL) (75-99) mg/dL POC Glu Tow Boat Captain ID Calcium 9.3 (8.4-10.2) mg/dL Total Bilirubin 1.1 (0.2-1.3) mg/dL AST 26 (17-59) U/L ALT 24 (21-72) U/L Alkaline Phosphatase 83 (38-126) U/L Total Creatine Kinase (55-170) U/L CK-MB (CK-2) (0.0-2.4) ng/mL CK-MB (CK-2) Rel Index Troponin I (0.000-0.034) ng/mL Total Protein 7.0 (6.3-8.2) g/dL Albumin 4.0 (3.5-5.0) g/dL Urine Color Yellow Urine Appearance Clear (Clear) Urine pH 5.5 (5.0-8.0) Ur Specific [place] 1.016 (1.001-1.035) Urine Protein Trace H (Negative) Urine Glucose (UA) Negative (Negative) Urine Ketones Negative (Negative) Urine Blood Moderate H (Negative) Urine Nitrite Negative (Negative) Urine Bilirubin Negative (Negative) Urine Urobilinogen <2.0 (<2.0) mg/dL Ur Leukocyte Esterase Negative (Negative) Urine RBC 53 H (0-5) /hpf Urine WBC 2 (0-5) /hpf Ur Squamous Epith Cells <1 (0-4) /hpf Influenza Type A RNA (Not Detectd) Influenza Type B (PCR) (Not Detectd) 01/16/19 Range/Units 13:00 WBC (3.8-10.6) k/uL RBC (4.30-5.90) m/uL Hgb (13.0-17.5) gm/dL Hct (39.0-53.0) % MCV (80.0-100.0) fL MCH (25.0-35.0) pg MCHC (31.0-37.0) g/dL RDW (11.5-15.5) % Plt Count (150-450) k/uL Neutrophils % % Lymphocytes % % Monocytes % % Eosinophils % % Basophils % % Neutrophils # (1.3-7.7) k/uL Lymphocytes # (1.0-4.8) k/uL Monocytes # (0-1.0) k/uL Eosinophils # (0-0.7) k/uL Basophils # (0-0.2) k/uL PT (9.0-12.0) sec INR (<1.2) APTT (22.0-30.0) sec Sodium (137-145) mmol/L Potassium (3.5-5.1) mmol/L Chloride (98-107) mmol/L Carbon Dioxide (22-30) mmol/L Anion Gap mmol/L BUN (9-20) mg/dL Creatinine (0.66-1.25) mg/dL Est GFR (CKD-EPI)AfAm (>60 ml/min/1.73 sqM) Est GFR (CKD-EPI)NonAf (>60 ml/min/1.73 sqM) Glucose (74-99) mg/dL POC Glucose (mg/dL) (75-99) mg/dL POC Glu Tow Boat Captain ID Calcium (8.4-10.2) mg/dL Total Bilirubin (0.2-1.3) mg/dL AST (17-59) U/L ALT (21-72) U/L Alkaline Phosphatase (38-126) U/L Total Creatine Kinase (55-170) U/L CK-MB (CK-2) (0.0-2.4) ng/mL CK-MB (CK-2) Rel Index Troponin I (0.000-0.034) ng/mL Total Protein (6.3-8.2) g/dL Albumin (3.5-5.0) g/dL Urine Color Urine Appearance (Clear) Urine pH (5.0-8.0) Ur Specific [place] (1.001-1.035) Urine Protein (Negative) Urine Glucose (UA) (Negative) Urine Ketones (Negative) Urine Blood (Negative) Urine Nitrite (Negative) Urine Bilirubin (Negative) Urine Urobilinogen (<2.0) mg/dL Ur Leukocyte Esterase (Negative) Urine RBC (0-5) /hpf Urine WBC (0-5) /hpf Ur Squamous Epith Cells (0-4) /hpf Influenza Type A RNA Detected H (Not Detectd) Influenza Type B (PCR) Not Detected (Not Detectd) Disposition Clinical Impression: Fall, Dehydration, Weakness, Failure to thrive, Hematuria, Influenza, Febrile illness, acute Disposition: ADMITTED IP TO THIS [facility] Condition: Stable
[2018-04-29] MEDS: ACETAMINOPHEN TAB 325 MG TAB PO PRN (14:01)
[2018-04-29] MEDS: SODIUM CHLORIDE 0.9% 1,000 ML IV SCH (15:29)
[2018-04-29] MEDS: HEPARIN SODIUM,PORCINE 5,000 UNIT/ML 1 ML VIAL SQ SCH (20:30)
[2018-04-29] MEDS: OSELTAMIVIR 75 MG CAP PO SCH (20:30)
--- NOTE | 2018-04-30 00:01 | HP ---
HISTORY AND PHYSICAL ATTENDING PHYSICIAN: Dr. Fortino Kennedy. CHIEF COMPLAINT: Weakness. HISTORY OF PRESENT ILLNESS: This 88-year-old gentleman who stays in foster care setting was brought in because he is extremely weak. He could not even stand. The patient was evaluated by the ER physician. They did not find any particular focus for the cause of his weakness. They contacted me and suggested that the patient return back to this facility chest because there was no evidence of any particular findings by the ER physicians. However, the patient, when attempting to be stood up, could not stand because of marked weakness. In view of this, they recommended that the patient have influenza check, given a dose of Levaquin pending culture results. The patient's influenza came back positive for influenza A. The patient has underlying dementia and denied any symptoms at time of evaluation. He has intermittent cough and does bring up some clears sputum which is mostly postpharyngeal secretions. The patient otherwise has been afebrile. Denies any other symptoms. Does have generalized malaise, mild achiness. No fevers or chills. He did have the influenza vaccine at the [facility] setting for this flu season. PAST MEDICAL HISTORY: Significant for dementia, history of hypertension for a couple years. He has not required any treatments. He has lost some weight. The patient also has a previous history of right renal cell carcinoma with no evidence of recurrence. He has nephrolithiasis with left renal stones. He has significant sepsis relating to that with infected stones. He has had no further issues. He does have a history of chronic intermittent hematuria. PAST SURGICAL HISTORY: Past surgical history significant for right nephrectomy, nephrostomy to the left kidney. Past surgical history otherwise also significant for tonsillectomy, circumcision and vasectomy. Past medical history is otherwise negative for any lung disease, liver disease, kidney disease, ulcers, TB, thyroid condition, ulcers, hepatitis, rheumatic fever, myocardial infarction, CVA. Does have history of dementia. SOCIAL HISTORY: He is a nonsmoker. He used to drink alcohol about 3 to 4 times a week, which he has stopped now. ALLERGIES: None known. MEDICATIONS: Aspirin 81 daily. VACCINATIONS: Did get annual flu vaccine. Has had a Pneumovax in 2015. SOCIAL HISTORY: Patient is , single. Lives at [facility] facility. FAMILY MEDICAL HISTORY: Father at age of 72 with a history of carcinoma of the lung. He also a coronary artery disease. Mother at the age of 91. She had a history of Parkinson and ASHD. Brother 87 with a history of coronary artery disease. A sister in her 50s of carcinoma of the breast. The patient has 1 daughter and 3 sons. One son recently had surgery. REVIEW OF SYSTEMS: NEURO: Denies any headaches or dizziness. Denies any visual changes. PSYCH: History of dementia, but cooperative and happy. CARDIAC: Denies chest pain, angina, palpitations. RESPIRATORY: Denies shortness of breath. Minimal cough. No hemoptysis. GI: Denies any nausea, vomiting, abdominal pain, diarrhea, constipation. : No symptoms of dysuria, hematuria, urgency, frequency. EXTREMITIES: Denies edema. Mild achiness. CONSTITUTIONAL: No fever or chills. ENT: Minimal cough. SKIN: No rash. PHYSICAL EXAMINATION: Pleasant gentleman, at present in no distress. VITAL SIGNS: Temperature 101.2, pulse 85, respirations 18, blood pressure 155/83, pulse ox 96 percent room air. HEENT: Normocephalic. NECK: No JVD. HEENT: Pupils are reactive. Oral cavity is dry. Ears reveal no drainage. Nostrils are clear. NECK: No JVD, carotid bruits or thyromegaly. No supraclavicular lymphadenopathy. CHEST: Clear to auscultation and percussion. CARDIAC: Normal S1, S2. No gallops, murmurs, or rubs. ABDOMEN: Soft. Bowel sounds active. No organomegaly. EXTREMITIES: No edema, no tenderness. NEUROLOGIC: Awake, alert, oriented x1. He recognizes me. Has well coordinated movements of both upper and lower extremities. LABORATORY ASSESSMENT: Normal CBC except for platelet count 110,000. PT and PTT normal. Electrolytes normal. GFR 63. Random glucose 113. Normal liver function. Troponin negative. Albumin 4.0. Urinalysis unremarkable except for 53 RBCs. Influenza type A positive. ASSESSMENT: 1. Influenza. 2. Generalized weakness. 3. Thrombocytopenia. 4. History of renal cell carcinoma. 5. Dementia. PLAN: Patient is stable. Continue present medical regimen. Hydrate. The patient has been started on Tamiflu. Prognosis remains guarded. Continue present regimen. MMODL / IJN: [id number] /
[2018-04-30] MEDS: ACETAMINOPHEN TAB 325 MG TAB PO PRN (00:32)
[2018-04-30] MEDS: SODIUM CHLORIDE 0.9% 1,000 ML IV SCH ×3 (02:30→19:12)
[2018-04-30] MEDS: OSELTAMIVIR 75 MG CAP PO SCH ×2 (09:01→21:05)
[2018-04-30] MEDS: ASPIRIN 325 MG TAB PO SCH (09:01)
[2018-04-30] MEDS: HEPARIN SODIUM,PORCINE 5,000 UNIT/ML 1 ML VIAL SQ SCH ×2 (09:01→21:05)
[2018-04-30] MEDS ORDERED: LEVOFLOXACIN 250MG-D5W PMX 250 MG in DEXTROSE/WATER 1 50ML.BAG IVPB SCH (13:00)
--- NOTE | 2018-04-30 19:37 | PN ---
PROGRESS NOTE CHIEF COMPLAINT: Re-evaluation. HISTORY OF PRESENT ILLNESS: This is an 88-year-old gentleman who was admitted to the hospital after being brought into the emergency room because of being very weak. The patient was noted on workup to have influenza. The patient has some cough and congestion. Denies much myalgia; however, he is fairly weak. The patient has difficulty getting out of bed by himself. The patient lives alone in an [facility] setting. He did have a temperature up to 102.6 last night. His fever is down today. His appetite is fair. REVIEW OF SYSTEMS: NEURO: Denies any headaches, dizziness. PSYCH: No anxiety, depression. Does have a history of dementia. CARDIAC: Denies chest pain, angina, palpitations. RESPIRATORY: Denies shortness of breath. Mild cough. No hemoptysis. GI: No nausea, vomiting, abdominal pain, diarrhea. No bowel movement yet. : No symptoms of dysuria or hematuria. Has incontinence. EXTREMITIES: Denies pain, edema. CONSTITUTIONAL: No fever or chills. PHYSICAL EXAMINATION: Pleasant gentleman, at present in no distress. Vital signs reveal temperature 98, pulse 71, respirations 16, blood pressure 143/76, pulse ox 94% basically on room air; not CPAP. (That is a mistake in recording.) HEENT: Normocephalic. NECK: Decreased range of motion. Oral cavity is moist. Ears reveal no drainage. CHEST: Clear to auscultation and percussion. CARDIAC: Normal S1, S2 with no gallops or murmurs. ABDOMEN: Soft. Bowel sounds present. Extremities reveal trace edema. NEUROLOGIC: Awake, alert, oriented, with well-coordinated movements. Otherwise generalized weakness. LABORATORY ASSESSMENT: None new. Blood culture negative so far. ASSESSMENT: 1. Influenza. 2. Generalized weakness with inability to move safely. 3. History of carcinoma of the kidney. 4. Dementia. PLAN: The patient is stable. Continue present medical regimen. Patient's condition was discussed with the patient. Prognosis guarded. Patient is going to require assistance at home. MMODL / IJN: [id number] /
[2018-05-01] MEDS: SODIUM CHLORIDE 0.9% 1,000 ML IV SCH (03:30)
[2018-05-01] MEDS: HEPARIN SODIUM,PORCINE 5,000 UNIT/ML 1 ML VIAL SQ SCH ×2 (09:55→20:53)
[2018-05-01] MEDS: OSELTAMIVIR 75 MG CAP PO SCH ×2 (09:55→20:53)
[2018-05-01] MEDS: ASPIRIN 325 MG TAB PO SCH (09:55)
--- NOTE | 2018-05-02 02:02 | PN ---
PROGRESS NOTE ATTENDING PHYSICIAN: Dr. Fortnio Kennedy. CHIEF COMPLAINT: Re-evaluation. HISTORY OF PRESENT ILLNESS: 88-year-old gentleman was admitted to the hospital with influenza A. The patient has no further fever. Doing better. He is however still coughing some. He does have some sputum production. Denies any chest pain, shortness of breath. The patient does have underlying history of dementia. REVIEW OF SYSTEMS: Neuro: Denies any headaches, dizziness. Psych: No anxiety. Cardiac: No chest pain, angina or palpitations. Respiratory: Denies shortness of breath. Does have cough. No hemoptysis. Gastroenterology: No nausea, vomiting, abdominal pain, diarrhea. : Incontinence. Extremities: No pain. Constitutional: No fever or chills. PHYSICAL EXAMINATION: Pleasant gentleman at present in no distress. Vital signs reveals temperature 98.5, pulse 56, respirations 16, blood pressure 145/68, pulse ox 92% on room air. HEENT: Normocephalic. Neck: No JVD. CHEST: Clear to auscultation. Cardiac: Normal S1, S2 with no gallops or murmurs. ABDOMEN: Soft. Bowel sounds present. EXTREMITIES: No edema. No tenderness. NEUROLOGIC: Awake, alert, oriented to person. Moves both upper and lower extremities adequately though. He does have some generalized stiffness. Needs a little assistance to get out of the chair. LABORATORY ASSESSMENT: Negative urine culture and blood culture. ASSESSMENT: 1. Influenza. 2. Dementia. 3. History of cancer of the kidney. PLAN: Continue present medical regimen. Patient's condition discussed with the patient. Prognosis guarded. Potential discharge tomorrow. I have asked nursing staff to inform the patient's son regarding this. In the meanwhile, recommend that he be up in chair and mobilize. MMODL / IJN: [id number] /
[2018-05-02] MEDS: OSELTAMIVIR 75 MG CAP PO SCH ×2 (07:55→20:20)
[2018-05-02] MEDS: ASPIRIN 325 MG TAB PO SCH (07:55)
[2018-05-02] MEDS: HEPARIN SODIUM,PORCINE 5,000 UNIT/ML 1 ML VIAL SQ SCH ×2 (07:56→20:20)
[2018-05-02 08:51] LABS: Calcium 8.4 mg/dL (8.4-10.2); Potassium 3.8 mmol/L (3.5-5.1)
--- NOTE | 2018-05-02 11:02 | P.PN ---
Subjective Progress Note Date: 05/02/18 Principal diagnosis: Influenza This 88-year-old gentleman was brought in the morning hospital because unable to take care of himself patient was very weak. Normally his been up and about he has no medications he takes except for baby aspirin. The patient has some dementia and he lives at [facility], an [facility]. Patient of the time of admission has a fever no evidence of any other infection site. A swab did come back positive for influenza A. Patient's been on Tamiflu has had no further fever to sleep excessively. He does have generalized weakness. Family is looking into placement for rehab. Patient was able to easily aroused with minimal assistance he did get out of bed with a walker he did transfer to bedside chair. And dizzy minutes after sitting in the chair he did recline back and went to sleep. He is eating well. No diarrhea has minimal cough. REVIEW OF SYSTEMS: Neuro: Denies any headaches dizziness. Psych: No anxiety has some disorientation chronic Cardiac: Denies chest pain and angina palpitations. Respiratory: Denies shortness of breath has mild cough. GI: Denies nausea vomiting or abdominal pain. No diarrhea or constipation, no bowel movement yet. : No dysuria hematuria has incontinence Extremities: Denies pain. No edema. Skin: Intact. Constitutional: No fever, chills. Objective - Vital Signs Vital signs: Vital Signs Temp 98.1 F 05/02/18 07:00 Pulse 60 05/02/18 07:00 Resp 16 05/02/18 08:00 BP 145/73 05/02/18 07:00 Pulse Ox 95 05/02/18 07:00 Intake & Output 05/01/18 05/02/18 05/02/18 18:59 06:59 18:59 Intake Total 480 600 Output Total 300 Balance 480 300 Intake: Intake, IV Titration 600 Amount Sodium Chloride 0.9% 1, 600 000 ml @ 100 mls/hr IV . Q10H [facility] Rx#:[id number] Oral 480 Output: Urine 300 Other: Voiding Method Urinal Urinal # Voids 2 2 PHYSICAL EXAMINATION: Cooperative, at present in no acute distress. HEENT: Neck supple. No JVD. Chest: Clear to auscultation percussion. Cardiac: Normal S1-S2 no gallops no murmur . Abdomen: Soft bowel sounds present. Extremities: No edema no tenderness Neurologically: Awake alert oriented to person moves both upper and lower extremities well - Labs CBC & Chem 7: 04/29/18 05:35 05/02/18 07:05 Labs: Abnormal Lab Results - Last 24 Hours (Table) 05/02/18 Range/Units 07:05 Chloride 109 H (98-107) mmol/L BUN 26 H (9-20) mg/dL Microbiology - Last 24 Hours (Table) 04/29/18 13:00 Blood Culture - Preliminary Blood No Growth after 48 hours Assessment and Plan Assessment: My assessment: 1. Influenza 2. Dementia with no behavioral issues 3. Remote history of carcinoma of the kidney 4. Chronic microscopic hematuria 5. Generalized weakness Plan: Continue present medical regimen. Patient's awaiting transfer to nursing facility for rehab
[2018-05-03] MEDS: ASPIRIN 325 MG TAB PO SCH (07:38)
[2018-05-03] MEDS: OSELTAMIVIR 75 MG CAP PO SCH ×2 (07:38→19:58)
[2018-05-03] MEDS: HEPARIN SODIUM,PORCINE 5,000 UNIT/ML 1 ML VIAL SQ SCH ×2 (07:39→19:58)
--- NOTE | 2018-05-03 11:32 | P.PN ---
Subjective Progress Note Date: 05/03/18 Principal diagnosis: Influenza This 88-year-old gentleman was admitted to the hospital with increased lethargy and weakness and a fever. Patient noted to have evidence of influenza A. Is on Tamiflu. Hasn't no further fever he has mild chest congestion and cough. No shortness of breath. He does have underlying history of dementia mild. He is cooperative. Patient spends quite a bit of time sleeping. Previous history of renal carcinoma. No evidence of recurrence. He does have urinary incontinence. Patient's been afebrile urine and blood cultures are negative. His awaiting placement. REVIEW OF SYSTEMS: Neuro: Denies any headaches dizziness. Psych: No anxiety. Mild confusion. Cooperative.] Cardiac: Denies chest pain and angina palpitations. Respiratory: Denies shortness of breath mild cough. GI: Denies nausea vomiting or abdominal pain. No diarrhea or constipation, no bowel movement yet. : Denies dysuria hematuria does have incontinence Extremities: Denies pain. No edema. Skin: Intact. Constitutional: No fever, chills. Objective - Vital Signs Vital signs: Vital Signs Temp 97.9 F 05/03/18 07:00 Pulse 55 L 05/03/18 07:00 Resp 17 05/03/18 07:45 BP 129/70 05/03/18 07:00 Pulse Ox 96 05/03/18 07:00 Intake & Output 05/02/18 05/03/18 05/03/18 18:59 06:59 18:59 Output Total 300 Balance -300 Output: Urine 300 Other: Voiding Method Urinal Urinal Urinal Incontinent # Voids 1 1 PHYSICAL EXAMINATION: Cooperative, at present in no acute distress. HEENT: Neck supple. No JVD. Chest: Clear to auscultation percussion. Cardiac: Normal S1-S2 no gallops no murmur . Abdomen: Soft bowel sounds present. Extremities: No edema no tenderness Neurologically: Awake, alert, oriented to person only. well-coordinated movements. - Labs CBC & Chem 7: 04/29/18 05:35 05/02/18 07:05 Labs: Microbiology - Last 24 Hours (Table) 04/29/18 13:00 Blood Culture - Preliminary Blood No Growth after 72 hours Assessment and Plan Assessment: My assessment: 1. Influenza 2. Dementia with no behavioral issues 3. Remote history of carcinoma of the kidney 4. Chronic microscopic hematuria 5. Generalized weakness Plan: Continue present medical regimen. Patient's awaiting transfer to nursing facility for rehab Time with Patient: Less than 30
--- NOTE | 2018-05-04 07:59 | P.DS ---
Providers Date of admission: 05/01/18 10:11 Expected date of discharge: 05/04/18 Attending physician: Parvez Kennedy Primary care physician: Parvez Kennedy [facility] Course: This 88-year-old gentleman was admitted to the hospital with generalized weakness and inability to stand and a fever. Patient lives by himself. Patient is evaluated in the emergency room noted to have influenza A. He is admitted to the hospital in view of his inability to take care of himself. He was admitted to the hospital is under observation however due to continued weakness is converted to full admission. He is improved he has had no further fever cultures have been negative he does have dementia but no major behavioral issues. Remote history of carcinoma of the kidney and history of nephrolithiasis. He has no other symptoms. Transfer to nursing facility for rehab. My final diagnoses 1. Influenza A 2. Debility 3. Dementia 4. History of carcinoma of the kidney 5. Chronic microscopic hematuria 6. Chronic incontinence of urine Patient Condition at Discharge: Stable Plan - Discharge Summary Discharge Rx Participant: No New Discharge Prescriptions: New Aspirin EC [Ecotrin Low Dose] 81 mg PO DAILY #30 tablet.dr mejiaFENesin-DM 100-10MG/5ML [Robitussin DM] 10 ml PO ACHS PRN #240 ml PRN Reason: Cough Discontinued Aspirin EC [Ecotrin] 325 mg PO DAILY Discharge Medication List Aspirin EC [Ecotrin Low Dose] 81 mg PO DAILY #30 tablet. 05/04/18 [Rx] guaiFENesin-DM 100-10MG/5ML [Robitussin DM] 10 ml PO ACHS PRN #240 ml 05/04/18 [ Rx] Follow up Appointment(s)/Referral(s): Parvez Kennedy MD [Primary Care Provider] - 1-2 days Discharge Disposition: TRANSFER TO SNF/ECF
[2018-05-04 08:07] VITALS: BP 149/77; PULSE 58; RESP 16; TEMP 97.8
[2018-05-04] MEDS: ASPIRIN 325 MG TAB PO SCH (08:53)
[2018-05-04] MEDS: OSELTAMIVIR 75 MG CAP PO SCH (08:53)
[2018-05-04] MEDS: HEPARIN SODIUM,PORCINE 5,000 UNIT/ML 1 ML VIAL SQ SCH (08:53)
== END 2018-05-04 11:35 | DRG 195 ==
LOC: EC 05:26 → 1SOBS 13:09 → 4SSUR 13:46 → OBSVTOIN 05-01 10:11
PROVIDERS: ADMIT Internal Medicine; ATTEND Internal Medicine
DX: J10.1 Influenza due to other identified influenza virus with other respiratory manifestations (principal); D69.6 Thrombocytopenia, unspecified; E86.0 Dehydration; R31.29 Other microscopic hematuria; F03.90 Unspecified dementia, unspecified severity, without behavioral disturbance, psychotic disturbance, mood disturbance, and anxiety; I45.10 Unspecified right bundle-branch block; I44.0 Atrioventricular block, first degree; I10 Essential (primary) hypertension; R32 Unspecified urinary incontinence; R62.7 Adult failure to thrive; R29.6 Repeated falls; Z79.82 Long term (current) use of aspirin; Z90.5 Acquired absence of kidney; Z87.442 Personal history of urinary calculi; Z85.528 Personal history of other malignant neoplasm of kidney; Z91.011 Allergy to milk products; Z82.49 Family history of ischemic heart disease and other diseases of the circulatory system; Z82.0 Family history of epilepsy and other diseases of the nervous system; Z80.3 Family history of malignant neoplasm of breast; Z80.1 Family history of malignant neoplasm of trachea, bronchus and lung
CPT/HCPCS: 36415; 70450; 71045; 72125; 72170; 80048; 80053; 81001; 82550; 82553; 84484; 85025; 85610; 85730; 87040; 87086; 87502; 93005; 96360; 99285

== ENCOUNTER 2018-12-05 08:42 | Observation (INO) | payer MEDICARE ==
[2018-12-05] MEDS ORDERED: NITROGLYCERIN OINT 1 INCH/GM PACKET TOPICAL STA (09:23)
[2018-12-05] MEDS ORDERED: ASPIRIN 81 MG PO STA (09:23)
[2018-12-05] MEDS ORDERED: SODIUM CHLORIDE 0.9% 500 ML 500 ML IV STA (09:23)
--- NOTE | 2018-12-05 09:38 | ED ---
General Adult HPI - General Chief complaint: Chest Pain Stated complaint: chest pain Time Seen by Provider: 12/05/18 08:45 Source: patient, RN notes reviewed Mode of arrival: wheelchair Limitations: no limitations - History of Present Illness Initial comments: This is an 88-year-old male who comes in because earlier today complaining of chest pain and he stated at that time he had it for a few hours. Patient states currently is chest pain-free. Patient currently states he does not even remember complaining about chest pain earlier today. Patient states he has no difficulty breathing no palpitations. Patient denies any symptoms whatsoever. According to the staff he did not mention being short of breath or having any sweating episodes. Patient denies having had a fever. Patient denies headache patient denies numbness weakness. Patient denies any near syncopal episode. - Related Data Home Medications Medication Instructions Recorded Confirmed Ibuprofen [Motrin Ib] 600 mg PO Q6H PRN 12/05/18 12/05/18 Previous Rx's Medication Instructions Recorded guaiFENesin-DM 100-10MG/5ML 10 ml PO ACHS PRN #240 ml 05/04/18 [Robitussin DM] Allergies Allergy/AdvReac Type Severity Reaction Status Date / Time Milk Containing Products AdvReac Diarrhea Verified 12/05/18 09:00 [Dairy] Review of Systems ROS Statement: Those systems with pertinent positive or pertinent negative responses have been documented in the HPI. ROS Other: All systems not noted in ROS Statement are negative. 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 Past Psychological History: No Psychological Hx Reported Smoking Status: Never smoker Past Alcohol Use History: None Reported Past Drug Use History: None Reported - Past Family History Father Family Medical History: Cancer Additional Family Medical History / Comment(s): Father of lung cancer at the age of 72 yrs. Mother Additional Family Medical History / Comment(s): Mother at the age of 91 yrs. She had ASHD General Exam - General Exam Comments Initial Comments: GENERAL: Patient is well-developed and well-nourished. Patient is nontoxic and well- hydrated and is in no acute distress. ENT: Neck is soft and supple. No significant lymphadenopathy is noted. Oropharynx is clear. Moist mucous membranes. Neck has full range of motion without eliciting any pain. EYES: The sclera were anicteric and conjunctiva were pink and moist. Extraocular movements were intact and pupils were equal round and reactive to light. Eyelids were unremarkable. PULMONARY: Unlabored respirations. Good breath sounds bilaterally. No audible rales rh onchi or wheezing was noted. CARDIOVASCULAR: There is a regular rate and rhythm without any murmurs gallops or rubs. ABDOMEN: Soft and nontender with normal bowel sounds. SKIN: Skin is clear with no lesions or rashes and otherwise unremarkable. NEUROLOGIC: Patient is alert and oriented 2. Cranial nerves II through XII are grossly intact. Motor and sensory are also intact. Normal speech, volume and content. Symmetrical smile. MUSCULOSKELETAL: Normal extremities with adequate strength and full range of motion. LYMPHATICS: No significant lymphadenopathy is noted PSYCHIATRIC: Normal psychiatric evaluation. Limitations: no limitations Course Vital Signs 12/05/18 12/05/18 12/05/18 08:45 09:09 10:05 Temperature 97.9 F Pulse Rate 58 L 46 L Pulse Rate [ 49 L [employer] ] Respiratory 18 16 Rate Blood Pressure 147/90 142/69 O2 Sat by Pulse 98 97 Oximetry Medical Decision Making - Medical Decision Making EKG shows sinus bradycardia at 49 bpm NH interval is 214 QRS is 126 QT interval 474 QTC is 428. Patient's EKG shows no ST segment elevation or ST segment depression. Patient does have a right bundle branch block. Chest x-ray shows no acute abnormality. Patient has had no chest pain while being in the emergency department. I spoke with Dr. Zamarripa he agreed to admit the patient admitted the patient I wrote admitting orders - Lab Data Result diagrams: 12/05/18 09:05 12/05/18 09:05 Lab Results 12/05/18 12/05/18 12/05/18 Range/Units 09:05 09:05 09:05 WBC 6.3 (3.8-10.6) k/uL RBC 5.17 (4.30-5.90) m/uL Hgb 15.2 (13.0-17.5) gm/dL Hct 45.3 (39.0-53.0) % MCV 87.7 (80.0-100.0) fL MCH 29.4 (25.0-35.0) pg MCHC 33.5 (31.0-37.0) g/dL RDW 13.7 (11.5-15.5) % Plt Count 159 (150-450) k/uL Neutrophils % 70 % Lymphocytes % 19 % Monocytes % 6 % Eosinophils % 4 % Basophils % 1 % Neutrophils # 4.4 (1.3-7.7) k/uL Lymphocytes # 1.2 (1.0-4.8) k/uL Monocytes # 0.4 (0-1.0) k/uL Eosinophils # 0.2 (0-0.7) k/uL Basophils # 0.0 (0-0.2) k/uL PT 9.8 (9.0-12.0) sec INR 0.9 (<1.2) APTT 26.4 (22.0-30.0) sec Sodium 142 (137-145) mmol/L Potassium 4.3 (3.5-5.1) mmol/L Chloride 107 (98-107) mmol/L Carbon Dioxide 27 (22-30) mmol/L Anion Gap 8 mmol/L BUN 19 (9-20) mg/dL Creatinine 1.20 (0.66-1.25) mg/dL Est GFR (CKD-EPI)AfAm 62 (>60 ml/min/1.73 sqM) Est GFR (CKD-EPI)NonAf 54 (>60 ml/min/1.73 sqM) Glucose 87 (74-99) mg/dL Calcium 9.1 (8.4-10.2) mg/dL Magnesium 2.1 (1.6-2.3) mg/dL Total Bilirubin 0.7 (0.2-1.3) mg/dL AST 21 (17-59) U/L ALT 14 L (21-72) U/L Alkaline Phosphatase 73 (38-126) U/L Troponin I (0.000-0.034) ng/mL Total Protein 6.3 (6.3-8.2) g/dL Albumin 3.7 (3.5-5.0) g/dL 12/05/18 Range/Units 09:05 WBC (3.8-10.6) k/uL RBC (4.30-5.90) m/uL Hgb (13.0-17.5) gm/dL Hct (39.0-53.0) % MCV (80.0-100.0) fL MCH (25.0-35.0) pg MCHC (31.0-37.0) g/dL RDW (11.5-15.5) % Plt Count (150-450) k/uL Neutrophils % % Lymphocytes % % Monocytes % % Eosinophils % % Basophils % % Neutrophils # (1.3-7.7) k/uL Lymphocytes # (1.0-4.8) k/uL Monocytes # (0-1.0) k/uL Eosinophils # (0-0.7) k/uL Basophils # (0-0.2) k/uL PT (9.0-12.0) sec INR (<1.2) APTT (22.0-30.0) sec Sodium (137-145) mmol/L Potassium (3.5-5.1) mmol/L Chloride (98-107) mmol/L Carbon Dioxide (22-30) mmol/L Anion Gap mmol/L BUN (9-20) mg/dL Creatinine (0.66-1.25) mg/dL Est GFR (CKD-EPI)AfAm (>60 ml/min/1.73 sqM) Est GFR (CKD-EPI)NonAf (>60 ml/min/1.73 sqM) Glucose (74-99) mg/dL Calcium (8.4-10.2) mg/dL Magnesium (1.6-2.3) mg/dL Total Bilirubin (0.2-1.3) mg/dL AST (17-59) U/L ALT (21-72) U/L Alkaline Phosphatase (38-126) U/L Troponin I <0.012 (0.000-0.034) ng/mL Total Protein (6.3-8.2) g/dL Albumin (3.5-5.0) g/dL Disposition Clinical Impression: Chest pain Disposition: ADMITTED IP TO THIS HOSP Referrals: Parvez Kennedy MD [Primary Care Provider] - 1-2 days Time of Disposition: 11:47
[2018-12-05 09:56] LABS: Basophils % (A) 1 %; Eosinophils # (A) 0.2 k/uL (0-0.7); Eosinophils % (A) 4 %; HCT 45.3 % (39.0-53.0); HGB 15.2 gm/dL (13.0-17.5); Lymphocytes # (A) 1.2 k/uL (1.0-4.8); Lymphocytes % (A) 19 %; MCH 29.4 pg (25.0-35.0); MCHC 33.5 g/dL (31.0-37.0); MCV 87.7 fL (80.0-100.0); Mean Platelet Volume 7.1; Monocytes # (A) 0.4 k/uL (0-1.0); Monocytes % (A) 6 %; Neutrophils # (A) 4.4 k/uL (1.3-7.7); Neutrophils % (A) 70 %; Platelet Count 159 k/uL (150-450); RBC 5.17 m/uL (4.30-5.90); RDW 13.7 % (11.5-15.5); WBC 6.3 k/uL (3.8-10.6)
--- NOTE | 2018-12-05 09:57 | XR ---
EXAMINATION TYPE: XR chest 2V DATE OF EXAM: 12/05/2018 COMPARISON: 04/29/2018 INDICATION: Chest pain TECHNIQUE: Frontal and lateral views of the chest are obtained. FINDINGS: The heart size is normal. The pulmonary vasculature is normal. The lungs are clear. IMPRESSION: 1. No acute pulmonary process.
[2018-12-05 10:09] LABS: Albumin 3.7 g/dL (3.5-5.0); Calcium 9.1 mg/dL (8.4-10.2); Magnesium 2.1 mg/dL (1.6-2.3); Potassium 4.3 mmol/L (3.5-5.1); Total Bilirubin 0.7 mg/dL (0.2-1.3); Total Protein 6.3 g/dL (6.3-8.2)
[2018-12-05 10:11] LABS: INR 0.9 (<1.2); Partial Thromboplastin Time 26.4 sec (22.0-30.0); Prothrombin Time 9.8 sec (9.0-12.0)
[2018-12-05] MEDS ORDERED: NITROGLYCERIN SL TABS 0.4 MG TAB SUBLINGUAL PRN (11:47)
--- NOTE | 2018-12-05 12:42 | P.CRDCN ---
History of Present Illness History of present illness: This is a pleasant 88-year-old male with no significant past medical history other than dementia. We've been asked to see him in consultation secondary to chest discomfort the patient is seen and examined resting currently sitting up in bed eating lunch. He denies active chest pain at this time. His caregiver is at the bedside. The patient states this morning when driving his car he experienced a sharp pain across his chest from right to left this occurred intermittently a couple of times with no specific aggravating or alleviating factor. There is no radiation to the arm, back, neck or jaw and he denies any associated shortness of breath, dizziness, nausea, vomiting, palpitations or diaphoresis. The caregiver at the bedside states the patient does not drive and he verbalized to them he was having chest discomfort when he woke up this morning. There is intermittent episodes of confusion and this is baseline for his dementia per the caregiver. EKG reveals sinus mechanism heart rate of 49, first-degree AV block and right bundle branch block. Chest x-ray is negative for an acute cardiopulmonary process. CBC unremarkable, cardiac enzymes negative 1, sodium 142, potassium 4.3, creatinine 1.2. He takes no daily cardiac medications. At the time of my exam: CONSTITUTIONAL: Denies fever. Denies chills. EYES: Denies blurred vision. Denies vision changes. Denies eye pain. EARS, NOSE, MOUTH & THROAT: Denies headache. Denies sore throat. Denies ear pain. CARDIOVASCULAR: Denies chest pain. Denies shortness of breath. Denies orthopnea. Denies PND. Denies palpitations. RESPIRATORY: Denies cough. GASTROINTESTINAL: Denies abdominal pain. Denies diarrhea. Denies constipation. Denies nausea. Denies vomiting. MUSCULOSKELETAL: Denies myalgias. INTEGUMENTARY: Denies pruitis. Denies rash. NEUROLOGIC: Denies numbness. Denies tingling. Denies weakness. PSYCHIATRIC: Denies anxiety. Denies depression. ENDOCRINE: Denies fatigue. Denies weight change. Denies polydipsia. Denies polyurina. GENITOURINARY: Denies burning, hematuria or urgency with micturation. HEMATOLOGIC: Denies history of anemia. Denies bleeding. Blood pressure 152/84 artery 41 afebrile maintaining oxygen saturation on room air GENERAL: This is a 88-year-old male in no apparent distress at the time of my examination. HEENT: Head is atraumatic, normocephalic. Pupils are equal, round. Sclerae anicteric. Conjunctivae are clear. Mucous membranes of the mouth are moist. Neck is supple. There is no jugular venous distention. No carotid bruit is heard. LUNGS: Clear to auscultation no wheezes, rales or rhonchi. No chest wall tenderness is noted on palpation or with deep breathing. HEART: Regular rate and rhythm with faint systolic ejection murmur at the base, no rubs or gallops. S1 and S2 heard. ABDOMEN: Soft, nontender. Bowel sounds are heard. No organomegaly noted. EXTREMITIES: No evidence of peripheral edema and no calf tenderness noted. VASCULAR: Radial and dorsalis pedis pulses palpated, no evidence of clubbing. NEUROLOGIC: Patient is awake, alert and oriented to self. ASSESSMENT Chest pain, atypical. History of dementia History of renal carcinoma PLAN Symptoms are atypical and difficult to obtain an accurate history secondary to baseline altered mental status due to dementia. Continue to obtain serial cardiac enzymes to rule out an acute event. Obtain 2-D echocardiogram and Doppler study to assess cardiac structure and function. Check thyroid function. Ongoing telemetry monitoring. Thank you kindly for this consultation. Nurse Practitioner note has been reviewed, I agree with a documented findings and plan of care. Patient was seen and examined. 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 Past Psychological History: No Psychological Hx Reported Additional Psychological History / Comment(s): Pt resides at [facility]. He ambulates with a walker. Staff manages his meds. Smoking Status: Never smoker Past Alcohol Use History: None Reported Additional Past Alcohol Use History / Comment(s): Son states pt was a drinker but quit about 5 years ago. He was exposed to 2nd hand smoke most of his life. Past Drug Use History: None Reported - Past Family History Father Family Medical History: Cancer Additional Family Medical History / Comment(s): Father of lung cancer at the age of 72 yrs. Mother Additional Family Medical History / Comment(s): Mother at the age of 91 yrs. She had ASHD Medications and Allergies Home Medications Medication Instructions Recorded Confirmed Type guaiFENesin-DM 100-10MG/5ML 10 ml PO ACHS PRN #240 ml 05/04/18 12/05/18 Rx [Robitussin DM] Ibuprofen [Motrin Ib] 600 mg PO Q6H PRN 12/05/18 12/05/18 History Allergies Allergy/AdvReac Type Severity Reaction Status Date / Time Milk Containing Products AdvReac Diarrhea Verified 12/05/18 09:00 [Dairy] Physical Exam Vitals: Vital Signs Temp Pulse Pulse Pulse Resp BP BP 12/05/18 12:18 97.4 F L 41 L 16 152/84 12/05/18 12:00 47 L 16 142/69 12/05/18 11:00 44 L 16 142/69 12/05/18 10:05 46 L 16 142/69 12/05/18 10:00 48 L 16 131/87 12/05/18 09:09 49 L 12/05/18 09:04 12/05/18 08:45 97.9 F 58 L 18 147/90 Pulse Ox 12/05/18 12:18 100 12/05/18 12:00 98 12/05/18 11:00 98 12/05/18 10:05 97 12/05/18 10:00 96 12/05/18 09:09 12/05/18 09:04 95 12/05/18 08:45 98 Intake and Output 12/04/18 12/05/18 12/05/18 22:59 06:59 14:59 Other: Weight 77.111 kg Results 12/05/18 09:05 12/05/18 09:05 Cardiac Enzymes 12/05/18 12/05/18 Range/Units 09:05 09:05 AST 21 (17-59) U/L Troponin I <0.012 (0.000-0.034) ng/mL Coagulation 12/05/18 Range/Units 09:05 PT 9.8 (9.0-12.0) sec APTT 26.4 (22.0-30.0) sec CBC 12/05/18 Range/Units 09:05 WBC 6.3 (3.8-10.6) k/uL RBC 5.17 (4.30-5.90) m/uL Hgb 15.2 (13.0-17.5) gm/dL Hct 45.3 (39.0-53.0) % Plt Count 159 (150-450) k/uL Comprehensive Metabolic Panel 12/05/18 Range/Units 09:05 Sodium 142 (137-145) mmol/L Potassium 4.3 (3.5-5.1) mmol/L Chloride 107 (98-107) mmol/L Carbon Dioxide 27 (22-30) mmol/L BUN 19 (9-20) mg/dL Creatinine 1.20 (0.66-1.25) mg/dL Glucose 87 (74-99) mg/dL Calcium 9.1 (8.4-10.2) mg/dL AST 21 (17-59) U/L ALT 14 L (21-72) U/L Alkaline Phosphatase 73 (38-126) U/L Total Protein 6.3 (6.3-8.2) g/dL Albumin 3.7 (3.5-5.0) g/dL Current Medications Generic Name Dose Route Start Last Admin Trade Name Freq PRN Reason Stop Dose Admin Aspirin 325 mg 12/06/18 09:00 Aspirin PO DAILY SHAHRZAD Nitroglycerin 1 inch 12/05/18 14:00 Nitro-Bid Oint TOPICAL Q6HR PENDING SALE TO [facility] Nitroglycerin 0.4 mg 12/05/18 11:47 Nitrostat SUBLINGUAL Q5M PRN Chest Pain Intake and Output 12/04/18 12/05/18 12/05/18 22:59 06:59 14:59 Other: Weight 77.111 kg Patient Weight 12/06/18 06:59 Weight 77.111 kg 12/05/18 09:05 12/05/18 09:05
[2018-12-05] MEDS ORDERED: NALOXONE 0.4 MG/ML 1 ML VIAL IV PRN (12:53)
[2018-12-05] MEDS ORDERED: ACETAMINOPHEN TAB 325 MG TAB PO PRN (12:53)
--- NOTE | 2018-12-05 13:02 | P.HPIM ---
History of Present Illness H&P Date: 12/05/18 Chief Complaint: Chest pain Patient is in 88-year-old male 88 with no significant past medical history other than dementia presented to the emergency department from [facility] because of chest discomfort. Patient states that this is very unusual for him. Never had it in the past. Pain is bilateral across his chest. He is unable to specify the pain, or quantify its severity. Due to baseline dementia it is hard to get a good quality history from him. According to the caregiver who is at the bedside who is no associated symptoms of shortness of breath, dizziness, nausea or vomiting. No diaphoresis. There is no radiation to the arm, back, neck or jaw. No history of chest trauma.. In the emergency department workup revealed the following: EKG reveals sinus bradycardia of 49, first-degree AV block and right bundle branch block. Chest x- ray is negative for an acute cardiopulmonary process. CBC unremarkable, cardiac enzymes negative 1, sodium 142, potassium 4.3, creatinine 1.2. 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 Past Psychological History: No Psychological Hx Reported Additional Psychological History / Comment(s): Pt resides at [facility]. He ambulates with a walker. Staff manages his meds. Smoking Status: Never smoker Past Alcohol Use History: None Reported Additional Past Alcohol Use History / Comment(s): Son states pt was a drinker but quit about 5 years ago. He was exposed to 2nd hand smoke most of his life. Past Drug Use History: None Reported - Past Family History Father Family Medical History: Cancer Additional Family Medical History / Comment(s): Father of lung cancer at the age of 72 yrs. Mother Additional Family Medical History / Comment(s): Mother at the age of 91 yrs. She had ASHD Medications and Allergies Home Medications Medication Instructions Recorded Confirmed Type guaiFENesin-DM 100-10MG/5ML 10 ml PO ACHS PRN #240 ml 05/04/18 12/05/18 Rx [Robitussin DM] Ibuprofen [Motrin Ib] 600 mg PO Q6H PRN 12/05/18 12/05/18 History Allergies Allergy/AdvReac Type Severity Reaction Status Date / Time Milk Containing Products AdvReac Diarrhea Verified 12/05/18 09:00 [Dairy] Physical Exam Vitals: Vital Signs Temp Pulse Pulse Pulse Resp BP BP 12/05/18 12:18 97.4 F L 41 L 16 152/84 12/05/18 12:00 47 L 16 142/69 12/05/18 11:00 44 L 16 142/69 12/05/18 10:05 46 L 16 142/69 12/05/18 10:00 48 L 16 131/87 12/05/18 09:09 49 L 12/05/18 09:04 12/05/18 08:45 97.9 F 58 L 18 147/90 Pulse Ox 12/05/18 12:18 100 12/05/18 12:00 98 12/05/18 11:00 98 12/05/18 10:05 97 12/05/18 10:00 96 12/05/18 09:09 12/05/18 09:04 95 12/05/18 08:45 98 Intake and Output 12/04/18 12/05/18 12/05/18 22:59 06:59 14:59 Other: Weight 77.111 kg Constitutional: No acute distress, conversant, pleasant Eyes:Anicteric sclerae, moist conjunctiva, no lid-lag, PERRLA, ENMT: Oropharynx clear, no erythema, exudates Neck: Supple, FROM, no masses, or JVD, No carotid bruits, No thyromegaly Lungs: Clear to auscultation, Clear to percussion, Normal respiratory effort, no accessory muscle use Cardiovascular: Heart regular in rate and rhythm, No murmurs, gallops, or rubs, No peripheral edema Abdominal: Soft, Nontender, no guarding, rebound or rigidity, Normoactive bowel sounds, No hepatomegaly, No splenomegaly, No palpable mass Skin: Normal temperature, tone, texture, turgor, no induration, No subcutaneous nodules, No rash, lesions, No ulcers Extremities: No digital cyanosis, No clubbing, Pedal pulses intact and symmetrical, Radial pulses intact and symmetrical, No calf tenderness Psychiatric: Alert and oriented to person, place and time, appropriate affect, intact judgement Neuro: Muscles Strength 5/5 in all 4 extremities, Sensation to light touch grossly present throughout, Cranial nerves II-XII grossly intact, no focal sensory deficits Results CBC & Chem 7: 12/05/18 09:05 12/05/18 09:05 Labs: Abnormal Lab Results - Last 24 Hours (Table) 12/05/18 Range/Units 09:05 ALT 14 L (21-72) U/L Assessment and Plan Plan: Chest pain Seen by cardiology Cycle troponins Echo Doubt cardiac etiology Chronic Dementia CKD stage III, Stable
--- NOTE | 2018-12-05 14:30 | ECHOF ---
Referral Reason:cp MEASUREMENTS -------- HEIGHT: 177.8 cm WEIGHT: 77.1 kg BP: 152/84 RVIDd: 3.1 cm (< 3.3) IVSd: 1.0 cm (0.6 - 1.1) LVIDd: 5.1 cm (3.9 - 5.3) LVPWd: 1.2 cm (0.6 - 1.1) IVSs: 1.6 cm LVIDs: 3.2 cm LVPWs: 1.6 cm LA Diam: 3.4 cm (2.7 - 3.8) LAESV Index (A-L): 20.12 ml/m Ao Diam: 3.6 cm (2.0 - 3.7) AV Cusp: 2.1 cm (1.5 - 2.6) MV EXCURSION: 19.197 mm (> 18.000) MV EF SLOPE: 56 mm/s (70 - 150) EPSS: 0.7 cm MV E Devon: 0.83 m/s MV DecT: 356 ms MV A Devon: 1.10 m/s MV E/A Ratio: 0.75 RAP: 5.00 mmHg RVSP: 20.32 mmHg FINDINGS -------- Sinus rhythm. This was a technically good study. The left ventricular size is normal. Left ventricular wall thickness is normal. Overall left vent ricular systolic function is normal with, an EF between 55 - 60 %. The right ventricle is normal in size. Normal LA size by volume 22+/-6 ml/m2. The right atrial size is normal. Interatrial and interventricular septum intact. The aortic valve is trileaflet, and appears structurally normal. No aortic stenosis or regurgitation. The mitral valve is normal. There is trace to mild mitral regurgitation. Mild tricuspid regurgitation present. Right ventricular systolic pressure is normal at < 35 mmHg. Trace/mild (physiologic) pulmonic regurgitation. The aortic root size is normal. Normal inferior vena cava with normal inspiratory collapse consistent with estimated right atrial pre ssure of 5 mmHg. There is no pericardial effusion. CONCLUSIONS -------- 1. Sinus rhythm. 2. This was a technically good study. 3. The left ventricular size is normal. 4. Left ventricular wall thickness is normal. 5. Overall left ventricular systolic function is normal with, an EF between 55 - 60 %. 6. Normal LA size by volume 22+/-6 ml/m2. 7. The aortic valve is trileaflet, and appears structurally normal. No aortic stenosis or regurgitati on. 8. The mitral valve is normal. 9. There is trace to mild mitral regurgitation. 10. Mild tricuspid regurgitation present. 11. Right ventricular systolic pressure is normal at < 35 mmHg. 12. Trace/mild (physiologic) pulmonic regurgitation. 13. The aortic root size is normal. 14. Normal inferior vena cava with normal inspiratory collapse consistent with estimated right atrial pressure of 5 mmHg. 15. There is no pericardial effusion. JAVA SCALA DEVELOPER: Sarai Ontiveros RDCS
[2018-12-05] MEDS: NITROGLYCERIN OINT 1 INCH/GM PACKET TOPICAL SCH ×3 (14:50→23:29)
[2018-12-06] MEDS: NITROGLYCERIN OINT 1 INCH/GM PACKET TOPICAL SCH ×2 (03:04→13:15)
[2018-12-06 04:05] LABS: Cholesterol 173 mg/dL (<200); HDL Cholesterol 37 mg/dL (40-60); LDL Cholesterol,Calculated 101 mg/dL (0-99); Triglycerides 176 mg/dL (<150)
[2018-12-06] MEDS ORDERED: ASPIRIN 325 MG TAB PO SCH (09:00)
[2018-12-06] MEDS ORDERED: ASPIRIN 81 MG PO SCH (09:00)
[2018-12-06 09:41] VITALS: BP 107/63; PULSE 47; RESP 16; TEMP 97.6
--- NOTE | 2018-12-06 10:25 | P.PN ---
Subjective This is a pleasant 88-year-old male with no significant past medical history other than dementia. We've been asked to see him in consultation secondary to chest discomfort. Patient was seen and examined laying flat resting comfortably in bed. He denies any further symptoms of chest discomfort. In fact he doesn't recall that he had chest discomfort yesterday. Cardiac enzymes negative. LDL 101. Echocardiogram reveals preserved LV systolic function with ejection fraction 55-60%. GENERAL: This is a 88-year-old male in no apparent distress at the time of my examination. HEENT: Head is atraumatic, normocephalic. Pupils are equal, round. Sclerae anicteric. Conjunctivae are clear. Mucous membranes of the mouth are moist. Neck is supple. There is no jugular venous distention. No carotid bruit is heard. LUNGS: Clear to auscultation no wheezes, rales or rhonchi. No chest wall tenderness is noted on palpation or with deep breathing. HEART: Regular rate and rhythm with faint systolic ejection murmur at the base, no rubs or gallops. S1 and S2 heard. EXTREMITIES: No evidence of peripheral edema and no calf tenderness noted. ASSESSMENT Chest pain, atypical. History of dementia History of renal carcinoma PLAN Stable from a cardiac perspective. He may be discharged back to assisted living. Nurse Practitioner note has been reviewed, I agree with a documented findings and plan of care. Patient was seen and examined. Objective - Vital Signs Vital signs: Vital Signs Temp 97.6 F 12/06/18 08:00 Pulse 47 L 12/06/18 08:00 Resp 16 12/06/18 08:00 BP 107/63 12/06/18 08:00 Pulse Ox 95 12/06/18 08:00 Intake & Output 12/05/18 12/06/18 12/06/18 18:59 06:59 18:59 Weight 77.111 kg Other: Voiding Method Toilet Toilet Toilet # Voids 1 - Labs CBC & Chem 7: 12/05/18 09:05 12/05/18 09:05 Labs: Abnormal Lab Results - Last 24 Hours (Table) 12/05/18 Range/Units 09:05 Triglycerides 176 H (<150) mg/dL LDL Cholesterol, Calc 101 H (0-99) mg/dL HDL Cholesterol 37 L (40-60) mg/dL
--- NOTE | 2018-12-06 14:53 | P.DS ---
Providers Date of admission: 12/05/18 11:56 Attending physician: Dannielle Zamarripa DO Consults: 12/05/18 11:48 Consult Physician Urgent Consulting Provider: [facility] Consult Reason/Comments: Chest pain Do you want consulting provider notified?: Yes Primary care physician: Parvez Kennedy - Discharge Diagnosis(es) (1) Atypical chest pain Current Visit: Yes Status: Acute (2) History of dementia Current Visit: Yes Status: Acute (3) History of renal carcinoma Current Visit: Yes Status: Acute Hospital Course: The patient is a 88-year-old male with a past medical history of dementia that was admitted in observation status for atypical chest pain with need to rule out acute coronary syndrome. The patient was continued on routine chest pain orders, his vitals remained stable with some mild bradycardia. Workup was negative, EKG was negative for any suggestion of acute ischemia, cardiac enzymes were negative 3. Chest x-ray showed no acute cardiopulmonary etiology for process. Cardiology was consulted echocardiogram was ordered showed a preserved LVEF of 55-60%. The patient was cleared for stable discharge by cardiology. This discharge process took approximately 30 minutes. Focused exam Cardiovascular: Regular rhythm no murmurs rubs or gallops Patient Condition at Discharge: Good Plan - Discharge Summary Discharge Rx Participant: No New Discharge Prescriptions: Continue guaiFENesin-DM 100-10MG/5ML [Robitussin DM] 10 ml PO ACHS PRN #240 ml PRN Reason: Cough Ibuprofen [Motrin Ib] 600 mg PO Q6H PRN PRN Reason: Pain Discharge Medication List guaiFENesin-DM 100-10MG/5ML [Robitussin DM] 10 ml PO ACHS PRN #240 ml 05/04/18 [Rx] Ibuprofen [Motrin Ib] 600 mg PO Q6H PRN 12/05/18 [History] Follow up Appointment(s)/Referral(s): Parvez Kennedy MD [Primary Care Provider] - 1-2 days
== END 2018-12-06 14:41 | disposition home or self-care (01) ==
LOC: EC 08:42 → 1SOBS 11:56
PROVIDERS: ADMIT Internal Medicine; ATTEND Internal Medicine
DX: R07.89 Other chest pain (principal); F03.90 Unspecified dementia, unspecified severity, without behavioral disturbance, psychotic disturbance, mood disturbance, and anxiety; R00.1 Bradycardia, unspecified; I45.10 Unspecified right bundle-branch block; I44.0 Atrioventricular block, first degree; I12.9 Hypertensive chronic kidney disease with stage 1 through stage 4 chronic kidney disease, or unspecified chronic kidney disease; N18.3 Chronic kidney disease, stage 3 (moderate); Z91.011 Allergy to milk products; Z90.5 Acquired absence of kidney; Z85.528 Personal history of other malignant neoplasm of kidney; Z87.440 Personal history of urinary (tract) infections; Z87.442 Personal history of urinary calculi; Z77.22 Contact with and (suspected) exposure to environmental tobacco smoke (acute) (chronic); Z98.52 Vasectomy status; Z80.1 Family history of malignant neoplasm of trachea, bronchus and lung; Z82.49 Family history of ischemic heart disease and other diseases of the circulatory system
CPT/HCPCS: 96361 ×3; 96360; 99285; 36415; 93005; 93306; 80061; 80053; 84443; 83735; 84484; 85025; 85610; 85730; 71046; G0378 ×2

== ENCOUNTER 2019-02-01 19:11 | Observation (INO) | payer MEDICARE ==
[2019-02-01] MEDS ORDERED: ASPIRIN 81 MG PO STA (19:46)
[2019-02-01] MEDS ORDERED: NITROGLYCERIN OINT 1 INCH/GM PACKET TOPICAL STA (19:46)
--- NOTE | 2019-02-01 19:48 | ED ---
Chest Pain HPI - General Chief Complaint: Chest Pain Stated Complaint: Chest discomfort - History of Present Illness Initial Comments: 88-year-old male with dementia, coronary artery disease, hypertension presents emergency department for evaluation of chest pain. Patient is currently assisted living facility where earlier today staff state that patient was complaining of chest discomfort. Patient states he does not have any recollection of having discomfort. He denies any current chest discomfort shortness of breath back pain nausea or indigestion jaw pain or upper extremity paresthesias or pain. Patient states he feels like his "usual self". Patient appears well upon arrival no signs acute distress vital signs stable. Remaining review of systems negative, patient denies any recent fever, chills, shortness of breath, abdominal pain, nausea or vomiting, numbness or tingling, dysuria or hematuria, constipation or diarrhea, headaches or visual changes, or any other complaints. - Related Data Home Medications Medication Instructions Recorded Confirmed No Known Home Medications 02/01/19 02/01/19 Allergies Allergy/AdvReac Type Severity Reaction Status Date / Time Milk Containing Products AdvReac Diarrhea Verified 02/01/19 19:26 [Dairy] Review of Systems ROS Statement: Those systems with pertinent positive or pertinent negative responses have been documented in the HPI. ROS Other: All systems not noted in ROS Statement are negative. 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 Past Psychological History: No Psychological Hx Reported Additional Psychological History / Comment(s): Pt resides at [facility]. He ambulates with a walker. Staff manages his meds. Smoking Status: Never smoker Past Alcohol Use History: None Reported Additional Past Alcohol Use History / Comment(s): Son states pt was a drinker but quit about 5 years ago. He was exposed to 2nd hand smoke most of his life. Past Drug Use History: None Reported - Past Family History Father Family Medical History: Cancer Additional Family Medical History / Comment(s): Father of lung cancer at the age of 72 yrs. Mother Additional Family Medical History / Comment(s): Mother at the age of 91 yrs. She had ASHD General Exam - General Exam Comments Initial Comments: General: The patient is awake and alert, in no distress, and does not appear acutely ill. Eye: +3 mm pupils are equal, round and reactive to light, extra-ocular movements are intact. No nystagmus. There is normal conjunctiva bilaterally. No signs of icterus. Ears, nose, mouth and throat: There are moist mucous membranes and no oral lesions. Neck: The neck is supple, there is no tenderness or JVD. Cardiovascular: There is a regular rate and rhythm. Murmur. No rub or gallop is appreciated. Respiratory: Lungs are clear to auscultation, respirations are non-labored, breath sounds are equal. No wheezes, stridor, rales, or rhonchi. Gastrointestinal: Soft, non-distended, non-tender abdomen without masses or organomegaly noted. There is no rebound or guarding present. Musculoskeletal: Normal ROM, no tenderness. Strength 5/5. Sensation intact. Pulses equal bilaterally 2+. Neurological: A&O x 3. CN II-XII intact grossly, There are no obvious motor or sensory deficits. Coordination appears grossly intact. Speech is normal. Skin: Skin is warm and dry and no rashes or lesions are noted. No LE edema. Psychiatric: Cooperative, appropriate mood & affect, normal judgment. Course Vital Signs 02/01/19 02/01/19 02/01/19 19:31 21:00 23:47 Temperature 97.4 F L 98 F Pulse Rate 52 L 52 L Respiratory 16 18 20 Rate Blood Pressure 151/75 140/69 O2 Sat by Pulse 95 Oximetry 02/02/19 00:55 Temperature 98.6 F Pulse Rate 57 L Respiratory 16 Rate Blood Pressure 139/78 O2 Sat by Pulse Oximetry Chest Pain MDM - MDM 80-year-old male presenting for chest discomfort. Patient denies any current discomfort. Patient was provided aspirin as well as nitroglycerin in the EMS during transportation. Upon arrival patient is stable he appears well besides acute distress. Chest x-ray no acute findings EKG does have new T-wave inversions. Initial troponin negative. We will repeat subsequent levels. After discussing the case with attending provider Dr. Nassar, who recommended holding heparin until 2nd troponin given patient advanced age with risk of adverse bleeding will hold heparin. Patient admitted to the hospital patient however remained to hold the emergency department for further care will be managed by medic provider. Cardiology on consult, Disposition Clinical Impression: Chest pain Disposition: ADMITTED IP TO THIS HOSP Condition: Stable Is patient prescribed a controlled substance at d/c from ED?: No Time of Disposition: 22:31 Decision to Admit Reason: Admit from EC Decision Date: 02/01/19 Decision Time: 22:31
[2019-02-01 20:12] LABS: Basophils % (A) 1 %; Eosinophils # (A) 0.2 k/uL (0-0.7); Eosinophils % (A) 3 %; HCT 43.8 % (39.0-53.0); HGB 14.9 gm/dL (13.0-17.5); Lymphocytes # (A) 1.1 k/uL (1.0-4.8); Lymphocytes % (A) 20 %; MCV 88.3 fL (80.0-100.0); Mean Platelet Volume 6.1; Monocytes # (A) 0.4 k/uL (0-1.0); Monocytes % (A) 7 %; Neutrophils # (A) 3.7 k/uL (1.3-7.7); Neutrophils % (A) 67 %; Platelet Count 143 k/uL (150-450); RBC 4.97 m/uL (4.30-5.90); WBC 5.5 k/uL (3.8-10.6)
[2019-02-01 20:24] LABS: Albumin 3.7 g/dL (3.5-5.0); Calcium 9.4 mg/dL (8.4-10.2); Magnesium 2.1 mg/dL (1.6-2.3); Potassium 4.5 mmol/L (3.5-5.1); Total Bilirubin 0.4 mg/dL (0.2-1.3); Total Protein 6.2 g/dL (6.3-8.2)
[2019-02-01 20:25] LABS: INR 0.9 (<1.2); Partial Thromboplastin Time 25.4 sec (22.0-30.0); Prothrombin Time 9.7 sec (9.0-12.0)
--- NOTE | 2019-02-01 21:35 | XR ---
EXAMINATION TYPE: XR chest 2V DATE OF EXAM: 02/01/2019 COMPARISON: 12/05/2018 INDICATION: Chest pain TECHNIQUE: Frontal and lateral views of the chest are obtained. FINDINGS: The heart size is normal. The pulmonary vasculature is normal. The lungs are clear. IMPRESSION: 1. No acute pulmonary process.
[2019-02-01] MEDS ORDERED: NITROGLYCERIN SL TABS 0.4 MG TAB SUBLINGUAL PRN (22:29)
--- NOTE | 2019-02-02 02:35 | P.HPIM ---
History of Present Illness H&P Date: 02/02/19 Patient is an 88-year-old male with mild dementia and CKD who presented to the ED with the complaints of substernal discomfort earlier today. The patient is unable to recall many details surrounding the pain. He only recalls that the pain was earlier today, lasting a few minutes, substernal, and non-radiating. He is unable to recall if it was exertional or not. He denied SOB, nausea, vomiting, diaphoresis, or dizziness. He further denied abdominal pain, fever, chills, or cough. He underwent an extensive evaluation in the ED w/ Troponin less than 0.012, BNP 87, WBC count 5.5, hemoglobin 14.9, platelets 143, BUN 23, and creatinine 1.38. Chest x-ray was unremarkable. EKG revealed sinus bradyca rdia with 1st degree AV block and RBBB. 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 Past Psychological History: No Psychological Hx Reported Additional Psychological History / Comment(s): Pt resides at [facility]. He ambulates with a walker. Staff manages his meds. Smoking Status: Never smoker Past Alcohol Use History: None Reported Additional Past Alcohol Use History / Comment(s): Son states pt was a drinker but quit about 5 years ago. He was exposed to 2nd hand smoke most of his life. Past Drug Use History: None Reported - Past Family History Father Family Medical History: Cancer Additional Family Medical History / Comment(s): Father of lung cancer at the age of 72 yrs. Mother Additional Family Medical History / Comment(s): Mother at the age of 91 yrs. She had ASHD Medications and Allergies Home Medications Medication Instructions Recorded Confirmed Type No Known Home Medications 02/01/19 02/01/19 History Allergies Allergy/AdvReac Type Severity Reaction Status Date / Time Milk Containing Products AdvReac Diarrhea Verified 02/01/19 19:26 [Dairy] Physical Exam Vitals: Vital Signs Temp Pulse Resp BP Pulse Ox 02/02/19 00:55 98.6 F 57 L 16 139/78 02/01/19 23:47 98 F 52 L 20 140/69 02/01/19 21:00 18 02/01/19 19:31 97.4 F L 52 L 16 151/75 95 Intake and Output 02/01/19 02/01/19 02/02/19 14:59 22:59 06:59 Other: Weight 77.111 kg General: non toxic, no distress, appears younger than stated age, normal weight Derm: no unusual rashes/lesions no unusual ecchymoses, warm, dry Head: atraumatic, normocephalic, symmetric Eyes: EOMI, no lid lag, anicteric sclera, pupils equal round reactive to light ENT: Nose and ears atraumatic, no thrush, no pharyngeal erythema Neck: No thyromegaly, no cervical lymphadenopathy, trachea midline, supple Mouth: no lip lesion, mucus membranes moist Cardiovascular: S1S2 reg, no murmur, positive posterior tibial pulse bilateral, no edema, capillary refill less than 2 seconds Lungs: CTA bilateral, no rhonchi, no rales , no accessory muscle use Abdominal: soft, nontender to palpation, no guarding, no appreciable organomegaly, normal bowel sounds Ext: no gross muscle atrophy, muscle strength 5 out of 5 in all 4 extremities grossly, no contractures, Neuro: CN II-XI grossly intact, light touch intact all 4 extremities, finger to nose within normal limits, Psych: Alert, oriented, appropriate affect Results CBC & Chem 7: 02/01/19 19:55 02/01/19 19:55 Labs: Abnormal Lab Results - Last 24 Hours (Table) 02/01/19 02/01/19 Range/Units 19:55 19:55 Plt Count 143 L (150-450) k/uL BUN 23 H (9-20) mg/dL Creatinine 1.38 H (0.66-1.25) mg/dL Glucose 116 H (74-99) mg/dL ALT 18 L (21-72) U/L Total Protein 6.2 L (6.3-8.2) g/dL Assessment and Plan Plan: Chest pain, r/o ACS -Cardiac monitoring -Cardiology consult -Trend troponins -Continue with aspirin and nitro for now Thrombocytopenia -Monitor CBC for now CKD stage 3 -Monitor BMP DVT prophylaxis -IPCD The patient is admitted with an anticipated less than 2 midnight stay for evaluation of chest pain CODE STATUS: Full Code Discussed with: Patient Anticipated discharge date: 1-[address]: Home A total of 35 minutes was spent on the care of this complex patient more than 50% of the time was spent in counseling and care coordination.
[2019-02-02 03:02] LABS: Cholesterol 162 mg/dL (<200); HDL Cholesterol 40 mg/dL (40-60); LDL Cholesterol,Calculated 93 mg/dL (0-99); Triglycerides 147 mg/dL (<150)
[2019-02-02 03:56] VITALS: RESP 18; TEMP 96.8
[2019-02-02 08:32] LABS: Calcium 9.1 mg/dL (8.4-10.2); HCT 44.5 % (39.0-53.0); HGB 14.6 gm/dL (13.0-17.5); MCH 29.3 pg (25.0-35.0); MCHC 32.9 g/dL (31.0-37.0); MCV 89.1 fL (80.0-100.0); Mean Platelet Volume 6.2; Platelet Count 139 k/uL (150-450); Potassium 4.4 mmol/L (3.5-5.1); RDW 13.1 % (11.5-15.5); WBC 5.9 k/uL (3.8-10.6)
[2019-02-02] MEDS ORDERED: ASPIRIN 325 MG TAB PO SCH (09:00)
--- NOTE | 2019-02-02 11:10 | P.DS ---
Providers Date of admission: 02/01/19 22:26 Expected date of discharge: 02/02/19 Attending physician: Mitzy Vance MD Consults: 02/01/19 22:29 Consult Physician Urgent Consulting Provider: Ji Gibson Consult Reason/Comments: chest pain, t wave inversion Do you want consulting provider notified?: Yes, Notify in am Primary care physician: Parvez Kennedy [facility] Hospital Course: Patient was admitted with atypical chest pain and troponins 3 were negative EKG showed no changes as compared to EKGs from November 2018 and clinically patient and denies any chest pain since his arrival to the hospital. Patient has been evaluated by the cardiology team and he was cleared for discharge home today. Patient vital signs are stable and he is afebrile, lungs are clear heart rate rhythm regular and GI exam was acceptable. Health Concerns: Patient lives alone and he was advised to get help through his PCP if he is unable to take care of himself, patient verbalizes understanding and he stated that his son lives about 20 miles away and does help him taking care of himself. Pertinent Studies: Troponins 3 negative and EKG showed no acute changes. Procedures: None Patient Condition at Discharge: Good Plan - Discharge Summary Discharge Rx Participant: No New Discharge Prescriptions: Continue No Known Home Medications Discharge Medication List No Known Home Medications 02/01/19 [History] Follow up Appointment(s)/Referral(s): None,Stated [REFERRING] - 1-2 days Activity/Diet/Wound Care/Special Instructions: Resume diet and activity as before. Discharge Disposition: HOME SELF-CARE Care Plan Goals (MU): Follow up with your PCP Dr. Kennedy in 1 week.
[2019-02-02 11:58] VITALS: BP 146/76; PULSE 60
--- NOTE | 2019-02-02 12:24 | P.CRDCN ---
History of Present Illness History of present illness: This is Porsche Crow PA-C dictating a consult on this patient The patient was interviewed and examined by me as well as by Dr. Majano Case discussed with Dr. 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 He shouldn't is a poor historian secondary to his dementia. Per the emergency department note he presented from his assisted living facility and was complaining of chest pain. Per the EMS notes he received aspirin and his pain resolved. Upon presentation vital signs were stable. Chest x-ray showed no acute process. EKG showed sinus rhythm with first-degree AV block and right bundle branch block, asymmetric T-wave inversions in V1 through V3, consistent with prior EKG. Patient seen and examined resting comfortably in bed. States he "feels fair". He is hungry. Denies having any pain at all. No chest pain, shortness of breath, dizziness, palpitations. ROS: No fevers, chills or rigors, no cough, phlegm or expectoration, no nausea, vomiting or diarrhea, no hematuria, dysuria, no musculoskeletal complaints, no strokes or seizures, no skin lesions. 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 Past Psychological History: No Psychological Hx Reported Additional Psychological History / Comment(s): Pt resides at [facility]. He ambulates with a walker. Staff manages his meds. Smoking Status: Never smoker Past Alcohol Use History: None Reported Additional Past Alcohol Use History / Comment(s): Son states pt was a drinker but quit about 5 years ago. He was exposed to 2nd hand smoke most of his life. Past Drug Use History: None Reported - Past Family History Father Family Medical History: Cancer Additional Family Medical History / Comment(s): Father of lung cancer at the age of 72 yrs. Mother Additional Family Medical History / Comment(s): Mother at the age of 91 yrs. She had ASHD Medications and Allergies Home Medications Medication Instructions Recorded Confirmed Type No Known Home Medications 02/01/19 02/01/19 History Allergies Allergy/AdvReac Type Severity Reaction Status Date / Time Milk Containing Products AdvReac Diarrhea Verified 02/01/19 19:26 [Dairy] Physical Exam Vitals: Vital Signs Temp Pulse Pulse Resp BP BP Pulse Ox 02/02/19 08:00 96.8 F L 60 146/76 96 02/02/19 03:55 96.8 F L 54 L 18 143/104 94 L 02/02/19 00:55 98.6 F 57 L 16 139/78 02/01/19 23:47 98 F 52 L 20 140/69 02/01/19 21:00 18 02/01/19 19:31 97.4 F L 52 L 16 151/75 95 Intake and Output 02/01/19 02/02/19 02/02/19 22:59 06:59 14:59 Output Total 1000 200 Balance -1000 -200 Output: Urine 1000 200 Other: Weight 77.111 kg Results 02/02/19 07:41 02/02/19 07:41 Cardiac Enzymes 02/01/19 02/01/19 02/02/19 Range/Units 19:55 19:55 01:59 AST 21 (17-59) U/L Troponin I <0.012 <0.012 (0.000-0.034) ng/mL 02/02/19 Range/Units 07:41 AST (17-59) U/L Troponin I <0.012 (0.000-0.034) ng/mL Coagulation 02/01/19 Range/Units 19:55 PT 9.7 (9.0-12.0) sec APTT 25.4 (22.0-30.0) sec Lipids 02/02/19 Range/Units 01:59 Triglycerides 147 (<150) mg/dL Cholesterol 162 (<200) mg/dL HDL Cholesterol 40 (40-60) mg/dL CBC 02/01/19 02/02/19 Range/Units 19:55 07:41 WBC 5.5 5.9 (3.8-10.6) k/uL RBC 4.97 5.00 (4.30-5.90) m/uL Hgb 14.9 14.6 (13.0-17.5) gm/dL Hct 43.8 44.5 (39.0-53.0) % Plt Count 143 L 139 L (150-450) k/uL Comprehensive Metabolic Panel 02/01/19 02/02/19 Range/Units 19:55 07:41 Sodium 141 141 (137-145) mmol/L Potassium 4.5 4.4 (3.5-5.1) mmol/L Chloride 106 106 (98-107) mmol/L Carbon Dioxide 29 27 (22-30) mmol/L BUN 23 H 23 H (9-20) mg/dL Creatinine 1.38 H 1.19 (0.66-1.25) mg/dL Glucose 116 H 90 (74-99) mg/dL Calcium 9.4 9.1 (8.4-10.2) mg/dL AST 21 (17-59) U/L ALT 18 L (21-72) U/L Alkaline Phosphatase 81 (38-126) U/L Total Protein 6.2 L (6.3-8.2) g/dL Albumin 3.7 (3.5-5.0) g/dL Intake and Output 02/01/19 02/02/19 02/02/19 22:59 06:59 14:59 Output Total 1000 200 Balance -1000 -200 Output: Urine 1000 200 Other: Weight 77.111 kg 02/02/19 07:41 02/02/19 07:41
== END 2019-02-02 12:23 | disposition home or self-care (01) ==
LOC: EC 19:11 → 3SCARD 22:26
PROVIDERS: ADMIT Internal Medicine; ATTEND Internal Medicine
DX: R07.89 Other chest pain (principal); I25.10 Atherosclerotic heart disease of native coronary artery without angina pectoris; F03.90 Unspecified dementia, unspecified severity, without behavioral disturbance, psychotic disturbance, mood disturbance, and anxiety; I12.9 Hypertensive chronic kidney disease with stage 1 through stage 4 chronic kidney disease, or unspecified chronic kidney disease; N18.3 Chronic kidney disease, stage 3 (moderate); I45.10 Unspecified right bundle-branch block; I44.0 Atrioventricular block, first degree; R00.1 Bradycardia, unspecified; D69.6 Thrombocytopenia, unspecified; Z91.011 Allergy to milk products; Z87.442 Personal history of urinary calculi; Z85.528 Personal history of other malignant neoplasm of kidney; Z90.5 Acquired absence of kidney; Z87.440 Personal history of urinary (tract) infections; Z98.52 Vasectomy status; Z77.22 Contact with and (suspected) exposure to environmental tobacco smoke (acute) (chronic); Z80.1 Family history of malignant neoplasm of trachea, bronchus and lung; Z82.49 Family history of ischemic heart disease and other diseases of the circulatory system
CPT/HCPCS: 99285; 36415; 93005 ×2; 83880; 80061; 80053; 80048; 83735; 84484 ×2; 85025; 85027; 85610; 85730; 71046; G0378 ×2